=== PATIENT | male | born 1975 | race American Indian/Alaskan Native ===

== ENCOUNTER 2021-01-29 18:16 | Inpatient (IN) | payer OTHER ==
[~2021-01-29] VITALS: Ht 182.9 cm; Wt 63.3 kg
--- NOTE | 2021-01-29 22:30 | NUR ---
PT ARRIVED TO ROOM 127 AT 2158 VIA STRETCHER, PT ABLE TO MOVE HIMSELF OVER TO BED. HE IS ALERT/ORIENTED, REPORTS 5/10 HEADACHE PAIN, PRN TORADOL GIVEN. LUNGS CLEAR, RA. HR REGULAR, RATE 100-120. BOWEL TONES ACTIVE. IV SITES INTACT AND PATENT. 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 LEFT FOOT REDNESS OUTLINED, HAS AN ULCER TO LEFT LATERAL FOOT AND TO LEFT LATERAL ANKLE, BOTH OPEN TO AIR, WILL ORDER WOUND CARE CONSULT. MEDICATIONS GIVEN PER EMAR. PT HAS FRESH ICE WATER AND URINAL WITHIN REACH.
--- NOTE | 2021-01-29 23:30 | NUR ---
PHOTOS TAKEN OF LEFT LOWER LEG/FOOT WOUNDS. PT PROVIDED WITH SANDWICH BOX, ATE 100%. REPORTS HEADACHE PAIN IS SLIGHTLY IMPROVED SINCE PRN TORADOL.
--- NOTE | 2021-01-30 00:33 | NUR ---
PT APPEARS TO BE SLEEPING AT THIS TIME. NO APPARENT DISTRESS. RESPIRATIONS EVEN AND UNLABORED.
--- NOTE | 2021-01-30 02:01 | NUR ---
CALL LIGHT ANSWERED. PT STATED HE NEEDED ASSISTANCE TO BATHROOM, STATED HE THOUGHT HE MAY NEED TO HAVE BM. PT VOIDED 1000ML YELLOW URINE, NO BM. PT USED FWW TO AMBULATE TO BATHROOM, TOLERATED WELL. PT GIVEN PRN TRAMADOL FOR 5/10 HEADACHE PAIN. FRESH ICE WATER AND DIET SODA ALSO PROVIDED. PT BACK IN BED, DENIES FUTHER REQUESTS, CALL LIGHT WITHIN REACH.
--- NOTE | 2021-01-30 02:36 | NUR ---
CALL LIGHT ANSWERED, PT UP TO BATHROOM WITH FWW TO HAVE BM. BACK TO BED, DENIES FURTHER NEEDS.
--- NOTE | 2021-01-30 04:36 | NUR ---
ASSESSMENT COMPLETED. PT REPORTS HEADACHE PAIN REMAINS UNCHANGED AT 5/10, PRN TYLENOL GIVEN (ORAL TEMP 99.1). REMAINDER OF ASSESSMENT UNCHANGED. IV SITES INTACT, FLUIDS INFUSING WNL. CALL LIGHT WITHIN REACH.
--- NOTE | 2021-01-30 06:20 | NUR ---
IN TO START ANTIBIOTIC INFUSION PER EMAR. PT RESTING WITH EYES CLOSED, APPEARS TO BE SLEEPING. NO APPARENT DISTRESS, APPEARS COMFORTABLE. VITAL SIGNS STABLE.
--- NOTE | 2021-01-30 07:51 | NUR ---
PT BLOOD GLUCOSE THIS AM IS 475F. DR LANGFORD NOTIFIED THIS AM VIA TELEPHONE, NO NEW ORDERS AT THIS TIME. 11 UNITS PER SLIDING SCALE ADMINISTERED.
--- NOTE | 2021-01-30 08:00 | NUR ---
ASSESSMENT COMPLETED. PT RIGHT IV SITE PULLED. COMPLETE BED CHANGE NEEDED. PT LUNGS SOUNC CLEAR. SPO2 =99 ON ROOM AIR. PT HEART RATE INTHE 80S AT REST. SLIGHT DRAINAGE NOTED FROM SORE ON LEFT FOOT. PT STATES HE HAS NO FEELING IN LEFT FOOT. AREA RED AND WARM TO TOUCH. IV FLUIDS AND ABX INFUSING. CALL LIGHT WITHIN REACH. WILL CONTINUE TO MONITOR.
--- NOTE | 2021-01-30 08:22 | NUR ---
DR LANGFORD IN ROOM AT [facility] I[facility] TO SPEAK WITH MOTHER OSIEL AND PATIENT ABOUT PLAN OF CARE FOR NIGHT. ALL QUESTIONS ANSWERED.
--- NOTE | 2021-01-30 09:10 | NUR ---
SEOND IV STARTED IN PATIENTS RIGHT FOREARM. WELL TOLERATED BY PT. IV FLUIDS AND ABX NOW INFUSING.
--- NOTE | 2021-01-30 11:27 | NUR ---
PT IN ROOM ASLEEP. ASSESSMENT UNCHANGED AT THIS TIME. HEART RATE 100-106 AT REST.SPO2 = 98% ON ROOM AIR. IV FLUIDS INFUSING. CALL LILT WITHIN REACH. WILL CONTINUE TO MONITOR.
--- NOTE | 2021-01-30 12:48 | NUR ---
PT GIVEN PRN MEDICATION FOR A HEADACHE (SEE EMAR). EATING LUNCH AT THIS TIME. 10 UNITS OF HUMALOG GIVEN. CALL LIGHT WITHIN REACH. WILL CONTINUE TO MONITOR.
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
--- NOTE | 2021-01-30 13:12 | NUR ---
MED REC COMPLETE
--- NOTE | 2021-01-30 14:37 | NUR ---
IN ROOM FOR MEDICATION ADMINISTRATION. PT APPEARS DIAPHORETIC. IV IN RIGHT ARM HAS BEEN REMOVED. PT REMAINS ALERT, BUT STATES HE FEELS DISORIENTED. BLOOD GLUCOSE 63. GIVEN ORANGE JUICE AND PEANUT BUTTER. PLAN TO RECHECK BLOOD GLUCOSEIN 30 MIN. WILL CONTINUE TO CLOSELY MONITOR.
--- NOTE | 2021-01-30 15:30 | NUR ---
PT USED FWW TO AMBULATE TO BATHROOM. STAND BY ASSIST ONLY REQUIRED. PT STEADY ON FEET. HEART RATE AT 110 WITH AMBULATION. PT NOW BACK IN BED. CALL LIGHT WITHIN REACH. NO FURTHER NEEDS AT THIS TIME.
--- NOTE | 2021-01-30 17:03 | NUR ---
DR LANGFORD UPDATED ON PTS INCREASED HEART RATE AND BLOOD SUGARS. ORDER TO DC TID ARGENIS.
--- NOTE | 2021-01-30 18:09 | NUR ---
DR SEGURA INTO TO ASSESS AND TREAT WOUND. THIS RN AT BEDSIDE. LARGE AMOUNT OF PUSS INSIDE THE WOUND. TISSUE AROUND WOUND REMOVED AND WOUND DRESSING APPLIED BY DR SEGURA. WOUND CULTURE SENT TO LAB. PLAN FOR DR SEGURA TO FOLLOW UP TOMMORROW.
--- NOTE | 2021-01-30 20:25 | NUR ---
SHIFT REPORT RECEIVED FROM DANIEL DICKENS. PT UP TO BATHROOM WITH SBA/FWW, VOIDED AND HAD BM. NOW BACK IN BED. PT FEELS HOT TO THE TOUCH, ORAL TEMP 99.5, PT ALSO COMPLAINS OF 5/10 HEADACHE PAIN, PRN TORADOL GIVEN. LUNGS CLEAR, RA. HR REGULAR, RATE 100-110. BOWEL TONES ACTIVE, DENIES NAUSEA. LEFT FOOT HAS DRESSING IN PLACE, C/D/I. IV INTACT AND PATENT. CB, 9 UNITS SLIDING SCALE ADMINISTERED WITH 8 UNITS SEMGLEE. FRESH ICE WATER PROVIDED, PT DENIES FURTHER NEEDS. CALL LIGHT WITHIN REACH.
--- NOTE | 2021-01-30 22:11 | NUR ---
IN TO START ANTIBIOTIC INFUSION PER EMAR. ORAL TEMP HAS COME DOWN TO 98.2, PT APPEARS TO BE RESTING COMFORTABLY. NO COMPLAINTS OR REQUESTS AT THIS TIME. CALL LIGHT WITHIN REACH.
--- NOTE | 2021-01-31 00:21 | NUR ---
PT SLEEPING AT THIS TIME, NO APPARENT DISTRESS. RESPIRATIONS EVEN AND UNLABORED, VITAL SIGNS STABLE. IVF INFUSING WNL, IV APPEARS INTACT. WILL ALLOW FOR REST AND CONTINUE TO MONITOR.
--- NOTE | 2021-01-31 02:10 | NUR ---
PT CONTINUES TO SLEEP, NO APPARENT DISTRESS. RESPIRATIONS EVEN AND UNLABORED, VITAL SIGNS STABLE.
--- NOTE | 2021-01-31 02:50 | NUR ---
CALL LIGHT ANSWERED. PT REQUESTS SNACK, PROVIDED HIM WITH DIET SODA, BROTH, AND SUGAR FREE JELLO AND PUDDING. PT CONTINUES TO REPORT 5/10 HEADACHE PAIN, PRN ULTRAM GIVEN. NO FURTHER REQUESTS AT THIS TIME. CALL LIGHT WITHIN REACH.
--- NOTE | 2021-01-31 03:36 | NUR ---
CALL LIGHT ANSWERED. PT FINISHED WITH SNACKS AND NEEDS ASSISTANCE TO BATHROOM. SBA WITH FWW TO BATHROOM, PT HAD LARGE UNMEASURED VOID AND BM. ASSESSMENT COMPLETED AND UNCHANGED. DRESSING TO LEFT FOOT REMAINS C/D/I. IV INTACT AND PATENT. LINENS CHANGED, WARM BLANKETS PROVIDED. NO FURTHER NEEDS AT THIS TIME, CALL LIGHT WITHIN REACH.
--- NOTE | 2021-01-31 05:25 | NUR ---
IV PUMP ALARMING, NEW BAG OF IVF STARTED. ANTIBIOTIC INFUSION STARTED WELL. PT RESTING WITH EYES CLOSED, NO APPARENT DISTRESS. RESPIRATIONS EVEN AND UNLABORED. VITAL SIGNS STABLE.
--- NOTE | 2021-01-31 09:28 | NUR ---
PT ATE 100% OF BREAKFAST. STATES " MY BODY FEELS BETTER BUT MY HEADACHE IS STILL THERE" VANCOMYCIN NOW INFUSING. PLAN TO GIVE PT A SHOWER WHEN ABX ARE COMPLETED. CALL LIGHT WITHIN REACH. WILL CONTINUE TO MONITOR.
--- NOTE | 2021-01-31 10:39 | NUR ---
REPORT GIVEN TO MEDICAL/ CHEMICAL MAKER. PT TRANSPORTED VIA HOSPITAL BED ON TELEMETRY. ALL BELONGINGS TRANSPORTED WITH PT.
--- NOTE | 2021-01-31 10:40 | NUR ---
pt transfered from from CCU, on room air, NS @75, R BKA, L foot wound, VSS, diabetic diet , denies any pain at the momen.
--- NOTE | 2021-01-31 12:00 | NUR ---
pt mother here to visit pt communicated with nurse that she would like resources to help pt and his situation states she had been helping him out but can no longer help him as his behavior towards her is not good.i told his mom i would communicate this to the vocational case manager unfortunatly she is not here on the weekends, verified her number on chart states that number is not correct as her son sold her phone updated number is [phone]. number will be chnaged in the system.
--- NOTE | 2021-01-31 12:00 | NUR ---
rn in room to administer insulin with lunch, pt sitting up eating. 5units of humalog given for 236, denies any other needs at the moment.
--- NOTE | 2021-01-31 14:27 | NUR ---
RN in room to administer iv abx, pt finished lunch and is requesting a snack, sugar free jello given.
--- NOTE | 2021-01-31 15:30 | NUR ---
rn in room to administer iv vanco, verified with pharmacist cefepime and vanco are compatable, pt assisted up to bathroom, instructed to pull cord once done.
--- NOTE | 2021-01-31 17:20 | NUR ---
rn in room to administer 1700 medications 1unit of humalog given for a blood glucose of 171, pt ate 100% of dinner, urinal emptied, laying in bed wacthing tv denies any other needs at the moment.
--- NOTE | 2021-01-31 19:20 | NUR ---
REPORT RECEIVED FROM DAY SHIFT RN. PT LYING IN BED ALERT AND ORIENTED. DENIES NEEDS. WHITE BOARD UPDATED. CALL LIGHT IN REACH.
--- NOTE | 2021-01-31 21:07 | NUR ---
EVENING ASSESSMENT COMPLETE. SCHEDULED MEDS ADMINISTERED PER EMAR. PRN ADMINISTERED FOR REPORTED 5/10 HEADACHE PAIN. IVF INFUSING WNL. ELEVATED TEMP 99.3 NOTED. DRESSING TO LEFT FOOT INTACT WITH SCANT AMOUNT OLD DRAINAGE. PT DENIES QUESTIONS OR CONCERNS. CALL LIGHT IN REACH.
--- NOTE | 2021-01-31 22:38 | NUR ---
CALL LIGHT ANSWERED. PT UP TO BR WITH SBA AND FWW TO VOID AND HAVE BM. GAIT STEADY. BACK TO BED, LONG WELL. SNACK PROVIDED PER REQUEST. NO FURTHER NEEDS. CALL LIGHT IN REACH.
--- NOTE | 2021-01-31 23:59 | NUR ---
CALL LIGHT ANSWERED. SBA TO BR WITH FWW TO VOID AND HAVE BM. AT SINK FOR ORAL CARE. BACK TO BED, LONG WELL. NO FURTHER NEEDS AT THIS TIME.
--- NOTE | 2021-02-01 01:43 | NUR ---
CALL LIGHT ANSWERED. IV PUMP ALARMING. RESOLVED. SBA WITH FWW TO VOID AND HAVE LOOSE BM. GAIT STEADY. BACK TO BED, LONG WELL.
--- NOTE | 2021-02-01 03:35 | NUR ---
PT RESTING ON RIGHT SIDE WITH EYES CLOSED. RESPIRATOINS EVEN. CALL LIGHT IN REACH.
--- NOTE | 2021-02-01 06:34 | NUR ---
IV ABX INFUSING. VS AND I&O COMPLETE. PT AFEBRILE. DENIES NEEDS AT THIS TIME. CALL LIGHT IN REACH.
--- NOTE | 2021-02-01 07:05 | NUR ---
Report from Sheela Mane RN. Patient resting in bed with eyes closed. Respirations even and unlabored. Call light in reach, bed rails up X2.
--- NOTE | 2021-02-01 08:43 | NUR ---
Wakes to voice after multiple prompts. States he is very tired this AM, but sits up eat breakfast. Takes medications without difficulty. Denies pain at this time. Dressing to left foot remains clean, dry and intact. Call light in reach, bed rails upX2.
--- NOTE | 2021-02-01 09:40 | NUR ---
Dr. Novoa in to change dressing.
--- NOTE | 2021-02-01 10:45 | NUR ---
Sitting up in recliner. IV fluids restarted after shower. Denies other needs at this time. call light in reach.
--- NOTE | 2021-02-01 14:52 | NUR ---
ASSESSMENT COMPLETED. REQUESTS NICOTINE LOZENGE. GIVEN PRESCRIBED. DENIES OTHER NEEDS AT THIS TIME.
--- NOTE | 2021-02-01 15:41 | NUR ---
VANCOMYCIN INITIATED PRESCRIBED. CRACKERS AND DIET 7UP PROVIDED FOR NAUSEA. STATES LOZENGE REMINDED HIM OF CHEWING TOBACCO AND MADE HIM FEEL SICK. DENIES OTHER NEEDS AT THIS TIME.
--- NOTE | 2021-02-01 17:22 | NUR ---
Sitting up in bed. Eating supper. Scheduled medications given as prescribed.
--- NOTE | 2021-02-01 19:05 | NUR ---
BEDSIDE REPORT RECEIVED FROM OFFGOING RNOLIVER.
--- NOTE | 2021-02-01 20:27 | NUR ---
PT ASSESSMENT COMPLETE. PT DENIES PAIN, NAUSEA, OR SOB. PT WITH FLAT AFFECT. STATES THAT HE IS TIRED BUT RESTLESS AND WHEN HE WANTS TO FALL ASLEEP HE CANNOT BUT WHEN HE WANTS TO STAY AWAKE HE FALLS ASLEEP. PT FIDGETING DURING ASSESSMENT. PT REPORTS NUMBNESS AND TINGLING TO EXTREMITIES AT BASELINE. DRESSING TO LLE C/D/I WITH SOCK COVERIGN. PEDAL PULSE PALPABLE. PT ASSISTED TO BATHROOM AND BACK TO BED WITH 1 PA AND FWW. PT TOLERATED WELL. IV FLUSHED, PATENT, WNL. SCHEDULED MEDS ADMINISTERED. NEW GOWN, EXTRA BLANKETS, JELLO, AND ICE WATER PROVIDED. VS OBTAINED, WNL. PT DENIES FURTHER NEEDS AT THIS TIME. CALL LIGHT IN REACH.
--- NOTE | 2021-02-01 20:57 | NUR ---
PT REQUESTED SOMETHING TO EAT. PT PROVIDED A SANDWICH BOX.
--- NOTE | 2021-02-02 01:03 | NUR ---
MRI SUPERVISOR TO ROOM FOR IV PUMP ALARMING. PT RESTING IN BED WITH EYES CLOSED. RESPIRATIONS EVEN AND UNLABORED. PT APPEARS TO BE SLEEPING. DOES NOT WAKE WHILE MRI SUPERVISOR AT BEDSIDE. CALLLIGHT IN REACH.
--- NOTE | 2021-02-02 03:04 | NUR ---
PT UTLIZES CALL LIGHT, REQUESTS TO USE THE BATHROOM. PT UP TO BATHROOM AND BACK TO BED WITH 1 PA WITH FWW. PT ASSESSMENT COMPLETE. HE STATES THAT HE SLEPT WELL FOR A PERIOD, REMAINS TIRED. PT DENIES PAIN, NAUSEA, OR SOB. DRESSING TO LLE REMAINS C/D/I. IV FLUSHED WITH 10 ML NS. WNL. PATENT. SCHEDULED MEDS INIATED. PT BED LINENS AND GOWN CHANGED DUE TO BEING DAMP. PT DENIES FURTHER NEEDS AT THIS TIME. CALL LIGHT IN REACH.
--- NOTE | 2021-02-02 03:29 | NUR ---
PT UTLIZES CALL LIGHT, STATES THAT IV IS LEAKING. UPON ASSESSMENT IV FOUND TO BE LEAKING WHEN FLUSHED. NEW IV PLACED TO LUE. PT WINCES WITH IV INSERTION, DOES NOT REALIZED THAT INSERTION IS COMPLETE. EDUCATION PROVIDED. SCHEDULED IV MEDCIATIONS RESTARTED. PT DENIES FURTHER NEEDS AT THIS TIME. CALL LIGHT IN REACH.
--- NOTE | 2021-02-02 07:23 | NUR ---
PT RESTING EYES CLOSED AT TIME OF SHIFT EXCHANGE. LEFT UNDISTURBED. CALL LIGHT AND NEEDED ITEMS IN REACH.
--- NOTE | 2021-02-02 09:00 | NUR ---
PATIENT UP TO BATHROOM WITH SBA AND FWW.
--- NOTE | 2021-02-02 09:40 | NUR ---
PT HAS CONTINUED TO DOZE ALL MORNING. AWAKE NOW EATING MORNING MEAL DENIES DISCOMFORTS OR NEEDS OF. DR SEGURA IN AT START OF SHIFT FOR DRESSING CHANGE. WELL TOLERATED BY PT.
--- NOTE | 2021-02-02 10:38 | NUR ---
Patient is in bed with call light in reach.
--- NOTE | 2021-02-02 13:14 | NUR ---
IV FLUSHED, INFUSING 4 HOUR ABX, URINAL EMPTIED, PATIENT ATE 100% OF LUNCH.
--- NOTE | 2021-02-02 14:19 | NUR ---
Patient is in bed with call light in reach. Patient said thier left upper arm looks a little swollen from the insulin they got earlier. RN will be notified.
--- NOTE | 2021-02-02 14:54 | NUR ---
DR CARVALHO IN TO SEE PT ALL QUESTIONS ANSWERED. PT RESTING IN BED DENIES PAIN OR OTHER DISCOMFORTS.
--- NOTE | 2021-02-02 18:00 | NUR ---
PT BACK FROM SHOWER EATS 100% OF EVENING MEAL. SITTING IN BED WATCHING TV. USES CALL LIGHT APPROPRIATELY, DENIES NEEDS OF
--- NOTE | 2021-02-02 18:21 | NUR ---
Patient via to chair from bed with FWW SBA. Call light is in reach. Patient pulse was 111.
--- NOTE | 2021-02-02 19:15 | NUR ---
REPORT RECEIVED FROM OFFGOING RNFLORENCE.
--- NOTE | 2021-02-02 19:25 | NUR ---
ANSWERED CALL LIGHT. PATIENT SPILLED WATER FROM BRUSHING TEETH ALL OVER THE FLOOR. WIPED WITH STERN WIPES AND DRIED. SBA PATIENT FROM CHAIR TO BATHROOM TO BED USING WALKER. PICKED UP USED LINEN AND TRASH. DIET SODA AND SUGAR FREE PUDDING AND ICE WATER PROVIDED.
--- NOTE | 2021-02-02 20:25 | NUR ---
PT ASSESSMENT COMPLETE. PT SITTING UP IN BED WATCHING TV. DRESSING TO LLE C/D/I. PT AGREES TO DO BID DRESSING CHANGE AROUND 2200. IV FLUSHED WITH 10 ML NS, PATENT, WNL. SCHEDULED MEDS ADMINISTERED. ICE WATER REFILLED. PT DENIES FURTHER NEEDS AT THIS TIME. CALL LIGHT IN REACH.
--- NOTE | 2021-02-02 22:30 | NUR ---
PT UP TO BATHROOM AND BACK TO BED WITH SBA AND FWW. PT REPORTS HAVING LOOSE STOOL. STATES THAT HE WOULD LIKE A SANDWHICH BOX TO TRY TO HELP WITH DIARRHEA. ELECTRICAL AND RADIO MOCK UP MECHANIC TO BRING SANDWHICH BOX. PT ENCOURAGED TO SAVE STOOL SO RN CAN VISUALIZE. PT STATES THAT HE DOES NOT LIKE TO SEE OR SMELL HIS BM AND FLUSHES AFTER EACH TIME STOOL IS EXPRESSED. EDUCATION PROVIDED.
--- NOTE | 2021-02-02 23:31 | NUR ---
DRESSING CHANGE PERFORMED PER MD ORDER. PT TOLERATED WELL. SANDWHICH BOX PROVIDED PER PT REQUEST. PT DENIES FURTHER NEEDS, CALL LIGHT IN REACH.
--- NOTE | 2021-02-03 01:19 | NUR ---
answered bathroom call light. sba. patient is back in bed. warm blanket provided. ice water refilled. patient c/o head ache but stated he will observe and try to sleep it may go away. told to call when need anything. patient said yes.
--- NOTE | 2021-02-03 01:59 | NUR ---
PT ASSESSMENT COMPLETE. PT RESTINGIN BED. STATES THAT PRN ZOFRAN ADMINISTRATION EARLIER HELPED HIS STOMACH FEEL BETTER. NO FURTHER COMPLAINTS. DRESSING TO LLE C/D/I. IV FLUSHED, WNL, PATENT. IV MEDICATION INFUSING ORDERED. PT DENIES FURTHER NEEDS AT THIS TIME. CALL LIGHT IN REACH.
--- NOTE | 2021-02-03 05:08 | NUR ---
PT UTLIZES CALL LIGHT, REQUESTS TO USE THE BATHROOM. PT FOUND WITH LIQUID STOOL IN BED. BED LINENS CHANGED. PT PROVIDED WITH NEW GOWN AND SCRUB BOTTOMS. PT DENIES HELP IN THE BATHROOM TO CLEAN HIMSELF. WARM WIPES PROVIDED. PT WILL USE CALL LIGHT WHEN FINISHED IN BATHROOM.
--- NOTE | 2021-02-03 06:00 | NUR ---
NOTIFIED REGARDING LOOSE STOOL. NO NEW ORDERS RECEIVED.
--- NOTE | 2021-02-03 06:45 | NUR ---
DR. SEGURA IN TO SEE PT, DRESSING CHANGE PERFORMED. PT TOLERATED WELL. WOKE MINIMALLY DURING PROCEDURE.
--- NOTE | 2021-02-03 07:22 | NUR ---
PT RESTING EYES CLOSED AT TIME OF SHIFT EXCHANGE, LEFT UNDISTURBED
--- NOTE | 2021-02-03 07:55 | NUR ---
PT WAS ASLEEP IN BED. WHITEBOARD WAS UPDATED. CALL LIGHT IS WITHIN REACH. WILL CHECK BEACK IN LATER.
--- NOTE | 2021-02-03 09:36 | NUR ---
PT TO MRI AND BACK EATS 100% OF MORNING MEAL. USING CALL LIGHT APPROPRIATELY UP TO TOILET THEN TO CHAIR MOM IS PRESENT IN THE ROOM
[2021-02-03] MEDS ORDERED: LOPERAMIDE2 MG PO (10:55)
[2021-02-03] MEDS ORDERED: ZESTRIL10 MG PO (10:55)
[2021-02-03] MEDS ORDERED: NOVOLOG FL100 UNIT/1 SUB-Q (10:56)
[2021-02-03] MEDS ORDERED: LEVEMIR FL100 UNIT/2 SUB-Q (10:56)
[2021-02-03] MEDS ORDERED: ARTIFICIAL TEAR15 M6 OU (10:57)
--- NOTE | 2021-02-03 11:00 | NUR ---
PT CONTINUES TO HAVE LOOSE STOOL, REPORTS THIS IS A CHRONIC PROBLEM AND HE NORMALLY TAKES IMMODIUM AD
--- NOTE | 2021-02-03 11:57 | NUR ---
PT HAS BEEN UP IN THE CHAIR ALL MORNING MOVES TO THE BED NOW. MOTHER IS STILL PRESENT.
--- NOTE | 2021-02-03 12:15 | NUR ---
RECEIVED A CALL FROM DEACON ARTHUR FROM [facility]-HE HAS BEEN IN CONTACT WITH FAMILY AND THEY WOULD LIKE [facility] TO VISIT TODAY. INFORMED [facility].
--- NOTE | 2021-02-03 14:19 | NUR ---
PT SITTING UP IN BED BRUSHING HIS TEETH. O/R SCHEDULED FOR TOMORROW PT DENIES QUESTIONS.
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
--- NOTE | 2021-02-03 16:21 | NUR ---
Call from Patti and she states they will not be able to send anyone ham and would like to come in the morning. I explained I am concerned as the last 3 times, no one has ever showed up the following day. Asked if they will make sure, some shows tomorrow. She spoke with her Dish Room Worker and someone will visit [facility].
--- NOTE | 2021-02-03 17:07 | NUR ---
DR CARVALHO IN TO SEE PT AND DISCUSS PLAN GOING FORWARD. ALL QUESTIONS ANSWERED. PT UP IN BED EATING EVENING MEAL DENIES NEEDS OF. CALL LIGHT AND NEEDED ITEMS IN REACH.
--- NOTE | 2021-02-03 17:20 | NUR ---
Recieved call from Odilia at [facility] in [place]. She states she will see pt ham. She asks I call her in the future if I call the Crisis line and [facility] do not visit.
--- NOTE | 2021-02-03 19:13 | NUR ---
BEDSIDE REPORT FROM FLORENCE Suarez RN, PT SITTING UP IN BED TALKING WITH DRUG AND ETOH COUNSLOR AT BEDSIDE.
--- NOTE | 2021-02-03 20:23 | NUR ---
PT SITTING UP IN BED, HE REQUEST PAPER AND PEN TO WRITE DOWN PHONE NUMBERS AND FOR DRAWING, MED [facility] [facility] ANS ASSESSMENT COMPLETE, HE REPORTS NO PAIN OR NAUSEA, HE REQUESTED AT LUNCH BOX HE IS NPO AT MIDNIGHT FOR PROCEDURE TOMORROW. WILL PROVIDE
--- NOTE | 2021-02-03 22:05 | NUR ---
DRESSING CHANGE PER ORDERS, NOTED TO HAVE SMALL AMOUNT OF PURULENT DRAINAGE NOTED ON PALPATING AREA AROUND PUNCTURE OPENING, FLUSHED WITH NS, THEN IODINE SOLUTION DILUTED WITH NS, REDRESSED PER ORDERS. PT TOLERATED WELL, HE REPORTED NO PAIN DURING OR AFTER DRESSING CHANGE.
--- NOTE | 2021-02-04 00:07 | NUR ---
PT CALLED NURSES STATION TO REQUEST ASSISTANCE TO THE BATHROOM, HE AMBULATED TO BATHROOM STANDBY HELPED WITH IV POLE. HE TOLERATED ACTIVITY WELL, HE VOIDED 650ML AND HAD BM, HE FLUSHED BEFORE STAFF COULD SEE STOOL, HE REPORTS IT IS NOT DIARRHEA. PT BACK TO BED, CALL LIGHT IN REACH.
--- NOTE | 2021-02-04 01:36 | NUR ---
PT UP TO BATHROOM TO VOID AND HAVE BM, HE HAD INCONT OF LIQUID BM IN BED, FULL BED CHANGE WHILE PT UP IN BATHROOM, NEW GOWN AND PJ BOTTOMS PROVIDED, PT STANDBY ASSIST WITH FWW, TO MANAGE IV POLE. PT TOLERATED ACTIVITY WELL. PT REQUEST ICE WATER, PT REMINDED THAT HE IS NOW NPO FOR PROCEDURE TOMORROW, HE SAID "OH YEAH, THATS RIGHT" NO OTHER CONCERNS OR REQUESTS, CALL LIGHT IN REACH.
--- NOTE | 2021-02-04 03:54 | NUR ---
PT HAS SLEPT INTERMITTENLY OVER SHIFT, HE HAS BEEN UP THREE TIMES TO BATHROOM TO HAVE BM, HE HAS BEEN NPO SINCE MIDNIGHT, HE IS VOIDING QUANTITY SUFFICIENT, HE HAS NOT REPORTED ANY PAIN OR NAUSA OVER SHIFT, DRESSING CHANGED AT 2130 ON ANESTHETIST. HE TOLERATED WELL, SEE RN NOTE. HE HAS BEEN ORIENTED, CALLING APPROPRIATLY.
--- NOTE | 2021-02-04 06:14 | NUR ---
PT UP TO BATHROOM, ONE PERSON STANDBY ASSIST. V/S COMPLETE, WIPE DOWN FOR SURGERY COMPLETE. PT BACK TO BED, NO CONCERNS OR REQUESTS AT THIS TIME. CALL LIGHT IN REACH.
--- NOTE | 2021-02-04 07:15 | NUR ---
REPORT RECIEVED FROM SENIOR HARDWARE ENGINEER RN, PLAN FOR OR TODAY, NPO SINCE 0000, ROOM AIR, NO NEEDS AT THE MOMENT.
--- NOTE | 2021-02-04 07:39 | NUR ---
PT WAS ASLEEP IN BED. CALL LIGHT IS WITHIN REACH. WHITEBOARD IS UPDATED. WILL CHECK BACK IN LATER.
--- NOTE | 2021-02-04 08:13 | NUR ---
MARU FROM SURGERY HERE FOR PT, REPORT GIVEN PT BLOOD SUGAR 265 4 UNITS OF HUMALOG GIVEN, IV ABX DUE AT 0800 GIVEN TO MARU
--- NOTE | 2021-02-04 10:14 | NUR ---
02/04/21 [id number] YUDELKA FALK 0956-PATIENT ARRIVES TO PACU ON 10L VIA MASK. PATIENT IS NONAROUSABLE AND HAS ORAL AIRWAY IN PLACE. RESP EVEN AND UNLABORED. 0958-OXYGEN DECREASED TO 6L VIA MASK. 0959-BLOOD GLUCOSE WAS 199 1001-PATIENT REACTIVE TO VERBAL STIMULI AND ORAL AIRWAY IS REMOVED. RESP RATE EVEN AND UNLABORED. 1003-X-RAY AT BEDSIDE.
--- NOTE | 2021-02-04 10:55 | NUR ---
PT BACK FROM SURGEY AWAKE AND ALERT ROOM AIR, DENIES PAIN AT THE MOMENT, WATER AND SALTINE CRACKERS GIVEN, WILL ADVANCE DIET TOLEREATED. LEFT LEG IS NON WEIGHT BEARING PER ORDERS, KEEP ELEVATED, MOM IS AT BEDSIDE
--- NOTE | 2021-02-04 11:55 | NUR ---
rn in room to round on pt, dressing remains intact no drainage noted, denies pain, brisk cap refil waiting on lunch tray no other needs at the moment
--- NOTE | 2021-02-04 13:00 | NUR ---
RN IN ROOM TO DO POST OP VS AND ROUND ON PT, DRESSING INTACT DENIES PAIN, LUNCH TRAY REMOVED
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
--- NOTE | 2021-02-04 14:06 | NUR ---
RN IN ROOM TO HANG IV ABX, COMPLAINING OF PAIN AT THE ANKLE PRN TYLENOL PROVIDED.
--- NOTE | 2021-02-04 14:06 | NUR ---
CM LAURIE IN WITH PT, WILL CHECK BACK
--- NOTE | 2021-02-04 15:00 | NUR ---
PT PAIN IS BETTER LEG IS ELEVATED ON PILLOWS, ABLE TO VOID 500ML OF URINE
--- NOTE | 2021-02-04 15:11 | NUR ---
Spoke with Dr. Gutierrez and he will contact Dr. Novoa to determine when pt can discharge.
--- NOTE | 2021-02-04 17:23 | NUR ---
Scheduled appt with Dr. Chambers at [facility] 02/18/21 4:15 for pt to establish care.
--- NOTE | 2021-02-04 19:21 | NUR ---
YINKA CALLED ASKING FOR AN ESTIMATE FOR DC PLANNING, NOT ABLE TO GIVE A DATE. PROVIDED WITH DIRECT NUMBER, MARLYN PALOMINO MENTOR [phone]
--- NOTE | 2021-02-04 19:36 | NUR ---
SHIFT REPORT RECEIVED FROM ZAKIA SANCHEZ. PT REASTING IN BED. NO NEEDS AT THIS TIME. CALL LIGHT IN REACH.
--- NOTE | 2021-02-04 20:30 | NUR ---
SCHEDULED MEDS PROVIDED. ASSESSMENT, VS AND I&O COMPLETED. GCS 15, A&O X4. SCATTERED SCABS ABD BRUISING NOTED. IV WNL, CDI, FLUSHED WELL. LLE DRESSING CHANGED, SURGERY SITE WNL. LUNGS CLEAR, HEART TONES REGULAR. PT DENIES NUMBNESS AND TINGLING IN EXTREMITIES. ABD SOFT, NONTENDER, BOWEL TONES ACTIVE. ICE WATER PROVIDED. NO OTHER NEEDS. CALL LIGHT IN REACH.
--- NOTE | 2021-02-05 00:12 | NUR ---
PT RESTING IN BED. NO NEEDS AT THIS TIME. CALL LIGHT IN REACH.
--- NOTE | 2021-02-05 02:15 | NUR ---
SCHEDULED MEDS PROVIDED. ASSESSMENT COMPLETED. IV WNL. LLE DRESSING CDI. ICE WATER PROVIDED. PT DENIES PAIN. NO OTHER NEEDS. CALL LIGHT IN REACH.
--- NOTE | 2021-02-05 02:40 | NUR ---
ASSISTED PT BACK TO BED FROM BSC, MIX OF LIQUID STOOL AND URINE. REQUESTED SNACK.
--- NOTE | 2021-02-05 05:36 | NUR ---
VS AND I&O COMPLETED. PT RESTING IN BED. NO NEEDS AT THIS TIME. CALL LIGHT IN REACH.
--- NOTE | 2021-02-05 07:19 | NUR ---
Report recieved from warehouse worker 2nd shift RN, pt sleeping in bed, RR even and non labored, call light within reach no needs at the moment.
--- NOTE | 2021-02-05 08:30 | NUR ---
Received call from Britni at [facility]. Pt's mom, Chichi, is at [facility] requesting nurses to see pt in the home for dressing changes and for specialized equipment. UPdated Britni, I do not have these answers yet. I was notified by Dr. Novoa last night, pt will stay 1-2 days for IV antibiotics and then transition to PO. She states is closing at 12:00 today and they will not be able provide any assistance after 12. She states mom is back and forth if pt can return to home with her. They do not want pt to be discharged homeless. Let her know YINKA is also working with this pt, but he needs OHP and so far he will not stop his [place] medicaid. WE will be unable to assist him in [place] if he remains on [place] Medicaid.
--- NOTE | 2021-02-05 08:39 | NUR ---
rn in room to do morning assessment and medication blood glucose 148, 4 units of humalog given per order, 16 of long acting, pt denies pain, helped set up breakfast no needs at the moment
--- NOTE | 2021-02-05 10:00 | NUR ---
Received call from pts mom. She is again stating she really does not want this pt to return to her home. She will take him, if he does not have any place to go. She states she cannot physically help him. She is pleading for him to be able to stay through the weekend until he can get assistance from [facility]. [facility] would provide him a room, I explained my concern he would have a motel room, but not bear weight on his L ft, he would not have food. He would not have someone to assist with his dressing changes. Let her know I need to speak with Dr. Novoa and Dr. Gutierrez before a safe plan for dc can be made. Updated Dr. Gutierrez and asked if he feels pt would qualify for a SNF for wound care and PT. He will write orders for PT to [facility].
--- NOTE | 2021-02-05 10:06 | NUR ---
Patient call light is in reach. Vitals are complete.
--- NOTE | 2021-02-05 10:44 | NUR ---
rn in room to round on pt, pt requesting coffee provided with a fresh cup, denies any needs at the moment.
--- NOTE | 2021-02-05 11:00 | NUR ---
Spoke with pt, he is feeling ok. States he is muddled and he needs someone to help with a direction of where to go. He spoke with his Provider 1 ([place] Medicaid). He asked them to continue his care. He would like to return to [place] for his care. He is homeless them, but thinks he maybe able to stay with his twin brother. He is not vaccinated for covid. He states he has PTSD, and Depression. He also believes he has other psych diagnosis as he was evaluated in [place]. He does not know what these diagnosises are. He does states he has issues with anxiety and germ phobia. He is willing to go to a SNF for rehab and wound care if he qualifies.
--- NOTE | 2021-02-05 12:28 | NUR ---
rn in room to administer lunch time insulin, 246 blood glucose, 7 units of humalog given. denies any pain new water provided
--- NOTE | 2021-02-05 13:30 | NUR ---
Called SNFS in [place]: [facility], [facility], [facility] and all declined due to his insurance. Spoke with [facility] and they would accept, but are closed due to Covid until Feb 25 or . [facility] with [facility] and they do not currently have any medicaid beds. Spoke with [facility]. Brenda states they have beds and would accept insurance. She requests a chart. Informed I will fax when pt is evaluated by PT. Brenda admission [phone] .
--- NOTE | 2021-02-05 14:41 | NUR ---
BP was 133/89. Map was 99. 113 Pulse. Patient is in bed with call light.
--- NOTE | 2021-02-05 14:48 | NUR ---
rn in room to hang iv abx, and do assessment, no needs at the moment
--- NOTE | 2021-02-05 16:04 | NUR ---
Spoke with Izzy from PT. She evaluated pt and feels he will need SNF for safety.
--- NOTE | 2021-02-05 17:32 | NUR ---
rn in room to do dinner time insulin, pt talking on the phone and eating dinner, blood glucose 162 total 3 units given denies any other needs the moment.
--- NOTE | 2021-02-05 18:57 | NUR ---
PT NEEDS A NEW COVID TEST DUE TO BEING HERE FOR 7 DAYS PER POLICY PT AGREEABLE TO GETTING TEST, RT CALLED AND WILL COME DOWN TO GET TEST
--- NOTE | 2021-02-05 19:15 | NUR ---
PT SITTING UP IN BED WATCHING MOVIE ON HIS TABLET, NO DISTRESS OR REQUESTS AT THIS TIME. BEDSIDE REPORT FROM ZAKIA LEE RN.
--- NOTE | 2021-02-05 19:45 | NUR ---
1900 4-plex swab obtained and taken to lab.
--- NOTE | 2021-02-05 20:10 | NUR ---
PT SITTING UP IN BED HE REPORTS HE NEEDS TO USE THE COMMODE BEFORE THIS RN LEAVES THE ROOM. MEDICATIONS PASSED WITH EDUCATION ON ABX, PT REPORTS NO PAIN OR NAUSEA, DRESSING TO LEFT FOOT CLEAN AND DRY AT THIS TIME. BSC PLACED AT BEDSIDE FOR PT TO SLIDE ON TO.
--- NOTE | 2021-02-05 21:15 | NUR ---
IN TO GET VITALS, PT PROVIDED WITH WET WIPES AT BEDSIDE/BSC, NO FURTHER NEEDS
--- NOTE | 2021-02-05 21:45 | NUR ---
PT BACK TO BED, COMPLETED HS MED PASS AND ASSESSMENT. HE HAS NO FURHTER CONCERNS OR NEEDS AT THIS TIME, CALL LIGHT IN REACH.
--- NOTE | 2021-02-06 00:24 | NUR ---
PT RESTING QUIETLY ON LEFT SIDE, EYES CLOSED RR EVEN 18 BPM, NO DISTRESS NOTED
--- NOTE | 2021-02-06 02:31 | NUR ---
PT RESTING QUIETLY IN BED, EYES CLOSED RR EVEN, NO DISTRESS NOTED, ALERT OT NAME TO ADMINISTER ABX PER ORDER.
--- NOTE | 2021-02-06 05:53 | NUR ---
awaken easily, uses BSC, having loose stool, voiding QS, on room air, tolerating liquids well. BP 95/54, primary RN Kathleen notified
--- NOTE | 2021-02-06 06:10 | NUR ---
PT HAS SLEPT WELL OVER SHIFT, HE WAS ADMINISTERED MELATONIN PRN AT HS, PT SAID HE HAS A HARD TIME SLEEPING. PT HAS NOT REPORTED ANY PAIN OR NAUSEA OVER SHIFT, HE HAS BEEN TRANSFERING HIMSELF FROM BED TO COMMODE BY SLIDING ACROSS, HE IS NON WEIGHT BEARING ON LEFT POST OP FOOT, AND HAS RBKA. HE HAS BEEN COOPERATIVE WITH CARE. HE HAS HAD THREE LOOSE STOOLS OVER SHIFT. DRESSING TO LEFT FOOT IS DRY AND INTACT.
--- NOTE | 2021-02-06 07:10 | NUR ---
BEDSIDE REPORT RECIEVED FROM EYEWEAR MANUFACTURING SUPERVISOR PT AWAKE WACTHING TV, CALL LIGHT WITHIN REACH DENIES ANY NEEDS AT THE MOMENT.
--- NOTE | 2021-02-06 08:06 | NUR ---
DR IN ROOM TO DO DRESSING CHANGE ON L FOOT, PT TOLERATED WELL.
--- NOTE | 2021-02-06 08:30 | NUR ---
RN IN ROOM TO ADMINISTER MORNING MEDICATIONS AND DO ASSESSMENT, PT DENIES PAIN AT THE MOMENT NO OTHER NEEDS
--- NOTE | 2021-02-06 09:02 | OR ---
[facility] [address] [place], [place] [address] Signed DATE OF OPERATION: 02/04/2021 SURGEON: Lane Segura DPM SURGICAL AIDE SURGEON: Suzan Eckert DPM PREOPERATIVE DIAGNOSES: 1. Diabetic ulcer, left foot. 2. Cellulitis/abscess, left foot. 3. Osteomyelitis, left fifth metatarsal. POSTOPERATIVE DIAGNOSES: 1. Diabetic ulcer, left foot. 2. Cellulitis/abscess, left foot. 3. Osteomyelitis, left fifth metatarsal. ANESTHESIA: IV general with local block, left foot. ANALYST GEOCHEMICAL PROSPECTING: Ricardo Leahy CRNA SPECIMEN TO PATHOLOGY: A bone specimen from the left fifth metatarsal base, also aerobic/anaerobic culture, left foot. DESCRIPTION OF PROCEDURE: The patient was brought to the operating room and placed on the table in the supine position. Anesthesia Department administered IV sedation, after which a local block was given to the left foot using a total of 10 mL of 1:1 mixture, 2% lidocaine plain and 0.5% ropivacaine plain. Attention was initially directed to the ulcer site directly over the lateral aspect of the fifth metatarsal base. The ulcer was 1.5-2 cm in diameter and deep to the fascia or tendon overlying the bone of the fifth metatarsal base. Necrotic tissue was evident within the ulcer site and an incision was made from the ulcer extending proximal and distal in a linear fashion along the lateral aspect of the foot. The incision was full thickness through the skin and subcutaneous tissue exposing purulent drainage and necrotic tissue to this area. Necrotic tissue and purulent drainage extended from the Electronically Signed By: LANE SEGURA DPM 02/06/21 0902 PATIENT NAME: MARCELLA FERGUSON OPERATIVE REPORT DATE OF : 75 REPORT #: [id number] PHYSICIAN: LANE SEGURA DPM PCP: NO PRIMARY CARE PHYSICIAN REPORT IS CONFIDENTIAL AND NOT TO BE RELEASED WITHOUT AUTHORIZATION [facility] [address] [place], [place] [address] Signed ulcer area under the foot plantarly, the majority of the distance toward the medial side of the foot, and distally along the fifth metatarsal extending slightly in a dorsal direction as well. The incision was extended distally near the fifth metatarsal head, but ending proximal to the fifth metatarsal head and then necrotic soft tissue debrided from this area as well as the lateral aspect of fifth metatarsal and plantar mid foot area. Once the debridement was performed, this site was irrigated with copious amounts of normal saline, then inspected again for any necrotic tissue or purulence and none was found. At this time, attention directed to the fifth metatarsal base. The fascia and tendon insertion to this area showed a small amount of necrosis. The lateral aspect of the fifth metatarsal base had shown changes on MRI, therefore a small window was made into the bone at this area and the bone removed was sent for pathology. The bone to this area appeared to be solid and the small window cut out was approximately 1 cm x 0.2-0.3 cm and a hole made into the base of fifth metatarsal at this site. At this time, the antibiotic beads were placed throughout the wound site distally, plantarly and laterally over the fifth metatarsal area and some of the small antibiotic beads were then packed into the hole in the fifth metatarsal base to provide antibiotics at this site as well. The surgical site was then closed using 3-0 nylon monofilament, this was able to close the majority of the incision, the ulcer area itself had enough tissue loss that this was a little gapping to this area, but near complete closure. INTRAOPERATIVE COMPLICATIONS: None. ESTIMATED BLOOD LOSS: Less than 10 mL. Dressings applied consisting of Adaptic, Betadine-soaked gauze, Kerlix fluffs, Flexicon, and Coban. The patient tolerated the procedure and the anesthesia well and left the operating room with vital signs stable and vascular status intact to the left foot as evidenced by hyperemia with removal of the Esmarch. Lane Segura DPM Electronically Signed By: LANE SEGURA DPM 02/06/21 09 PATIENT NAME: MARCELLA FERGUSON OPERATIVE REPORT DATE OF : 75 REPORT #: [id number] PHYSICIAN: LANE SEGURA DPM PCP: NO PRIMARY CARE PHYSICIAN REPORT IS CONFIDENTIAL AND NOT TO BE RELEASED WITHOUT AUTHORIZATION [facility] [address] [place] [address] [place], [place] [address] Signed PERRY/COBY /[id number] Copies: ~ Electronically Signed By: LANE SEGURA DPM 02/06/21 0902 PATIENT NAME: MARCELLA FERGUSON OPERATIVE REPORT DATE OF : 75 REPORT #: [id number] PHYSICIAN: LANE SEGURA DPM PCP: NO PRIMARY CARE PHYSICIAN REPORT IS CONFIDENTIAL AND NOT TO BE RELEASED WITHOUT AUTHORIZATION
--- NOTE | 2021-02-06 10:01 | NUR ---
Patient's pulse is 107. Patient is in bed and Mom is in room.
--- NOTE | 2021-02-06 10:30 | NUR ---
Attempted to call Brenda at 0900 and 1030 this am to confirm placement for this pt. Per staff she is not in. Spoke with Arian and he plans on leaving today either way. Mom has arrived and she will take pt home with her for tonight and will transport to [place] to his dad's house tomorrow. Pt's brother will assist him. Mom states she can transport him as long as it is daylight. Dr. Gutierrez notified and will complete orders. [facility] [place] with [facility] number and gave to mother. Instructed pt and mom for pt to see his pcp in [place] on Tuesday and follow up with placement to this SNF for care.
--- NOTE | 2021-02-06 10:45 | NUR ---
RN IN ROOM TO OFFERED PT NICOTIENT PACTH PT REFUSED, MOM IN ROOM VISITING WITH PT
[2021-02-06] MEDS ORDERED: NICOTINE PATCH1 EACH TD (11:27)
[2021-02-06] MEDS ORDERED: AUGMENTIN 875-1 EACH PO (11:28)
[2021-02-06] MEDS ORDERED: LEVEMIR FL100 UNIT/2 SUB-Q (11:29)
[2021-02-06] MEDS ORDERED: NOVOLOG FL100 UNIT/1 SUB-Q (11:31)
[2021-02-06] MEDS ORDERED: BLOOD GLUCOSE1 EAC5 MISC (11:33)
[2021-02-06] MEDS ORDERED: LANCETS1 EACH MISC (11:33)
[2021-02-06] MEDS ORDERED: BLOOD GLUCOSE1 EAC8 MISC (11:33)
--- NOTE | 2021-02-06 12:04 | NUR ---
LAB CALLED. DR SEGURA WANTED PATHOLOGY REPORTS FAXED TO HIS OFFICE ONCE COMPLETED. LAB NOTIFIED AND SAYS THEY WILL FAX THE REPORT ONCE AVAILABLE.
--- NOTE | 2021-02-06 12:05 | NUR ---
DRESSING CHANGE ORDERS RECIEVED VIA TELEPHONE. ORDERS PLACED IN DISCHARGE. READ BACK TO VERIFY ACCURACY. ORDERS WRITEEN IN DISCHARGE. PRIMARY NURSE NOTIFIED.
--- NOTE | 2021-02-09 14:54 | PATH ---
[facility] [address] [place], [place] [address] Signed SPECIMEN(S): A 5TH METATARSAL BASE SPECIMEN SOURCE: A. 5TH METATARSAL BASE CLINICAL HISTORY: Left foot wound, history of diabetes. FINAL PATHOLOGIC DIAGNOSIS: Fifth metatarsal base, excision: - Fragments of bone and fibrous tissue with necrotic debris and reactive changes. DDF:cml:C2NR MICROSCOPIC EXAMINATION: Histologic sections of all submitted blocks are examined by light microscopy. These findings, together with the gross examination, support the pathologic diagnosis. GROSS DESCRIPTION: The specimen, labeled "Sal Arian," and designated on the requisition "fifth metatarsal base," is received in formalin and consists of 1.2 x 0.6 x 0.4 cm aggregate of pink-white firm bone fragments. The specimen is entirely submitted in cassette (A1) and placed into Decal Stat prior to processing. FB (under the direct supervision of a pathologist) The Gross Description was prepared using a voice recognition system. The report was reviewed for accuracy; however, sound-alike word errors, addition and/or deletions may occur. If there is any question about this report, please contact Client Services. PERFORMING LABORATORY: The technical component was performed by [facility], [address] [place] [id number] (Environmental Lead: Sarah Leon MD; CLIA# [id number]). [facility], [address] [address] (CLIA# [id number]). Diagnostician: Salvatore Rivera DO Pathologist Electronically Signed 02/09/2021 PATIENT NAME: ARIAN FERGUSON PATHOLOGY DATE OF : 75 REPORT #: [id number] PHYSICIAN: [facility] PCP: NO PRIMARY CARE PHYSICIAN REPORT IS CONFIDENTIAL AND NOT TO BE RELEASED WITHOUT AUTHORIZATION [address] [address] Signed Copies: ~ PATIENT NAME: ARIAN FERGUSON PATHOLOGY DATE OF : 75 REPORT #: [id number] PHYSICIAN: [facility]FTAL[facility]TE PATHOLOGY PCP: NO PRIMARY CARE PHYSICIAN REPORT IS CONFIDENTIAL AND NOT TO BE RELEASED WITHOUT AUTHORIZATION
== END 2021-02-06 13:00 | disposition home or self-care (01) | DRG 854 ==
LOC: ED 18:16 → MS 21:26 → CCU 21:26 → MS 01-31 10:35
PROVIDERS: Podiatrist Foot Surgery; ADMIT Internal Medicine; ATTEND Internal Medicine
PROC: 0QBP0ZZ Excision of Left Metatarsal, Open Approach (ICD-10-PCS; principal; 2021-02-04 08:45)
DX: A40.1 Sepsis due to streptococcus, group B (principal); M86.8X7 Other osteomyelitis, ankle and foot; L03.116 Cellulitis of left lower limb; L02.612 Cutaneous abscess of left foot; I10 Essential (primary) hypertension; E10.65 Type 1 diabetes mellitus with hyperglycemia; E10.69 Type 1 diabetes mellitus with other specified complication; Z20.822 Contact with and (suspected) exposure to COVID-19; E10.628 Type 1 diabetes mellitus with other skin complications; D64.9 Anemia, unspecified; E10.621 Type 1 diabetes mellitus with foot ulcer; Z59.02 Unsheltered homelessness; L97.529 Non-pressure chronic ulcer of other part of left foot with unspecified severity; Z79.4 Long term (current) use of insulin; Z89.511 Acquired absence of right leg below knee
CPT/HCPCS: 01480; 71045; 73630; 73723; 80048; 80053; 80202; 81001; 82803; 83036; 83605; 83735; 84100; 85025; 87040; 87070; 87075; 87077; 87205; 88304; 88311; 90686; 97161; 97165; A9270; A9577; C1713; C9803; G0008; G0480; J0295; J0330; J0692; J1100; J1815; J1885; J2250; J2370; J2405; J2704; J2765; J2795; J3010; J3370; J7030; J7060; J7121; U0003

== ENCOUNTER 2023-06-17 13:31 | Emergency (ER) | payer OTHER ==
[~2023-06-17] VITALS: Ht 182.9 cm; Wt 59.3 kg
[~2023-06-17 13:31] MED LIST: ARTIFICIAL TEAR15 M6 OU; AUGMENTIN 875-1 EACH PO; BLOOD GLUCOSE1 EAC5 MISC; BLOOD GLUCOSE1 EAC8 MISC; LANCETS1 EACH MISC; LEVEMIR FL100 UNIT/2 SUB-Q; LOPERAMIDE2 MG PO; NICOTINE PATCH1 EACH TD; NOVOLOG FL100 UNIT/1 SUB-Q; ZESTRIL10 MG PO
[2023-06-17] MEDS ORDERED: SODIUM CHLORIDE 0.9% 1,000 ML IV ONE (13:45)
[2023-06-17 13:52] LABS: BASOPHILS 0.4 % (0-2); EOSINOPHILS 0.4 % (0-6); HEMATOCRIT 31.3 % (35.0-50.0); HEMOGLOBIN 10.4 g/dL (12.0-18.0); LYMPHOCYTES 8.8 % (24-44); MCH 27.6 (27-36); MCHC 33.2 g/dl (30-36); MCV 82.9 fl (81-99); MONOCYTES 6.6 % (0-12); NEUTROPHILS 83.8 % (39-80); PLATELET COUNT 235 K/uL (140-440); RBC 3.78 M/ul (4.3-5.7); RDW 13.2 (10.5-15.0)
[2023-06-17 14:08] LABS: ALBUMIN/GLOBULIN RATIO 0.83 (1.1-2.4); ALCOHOL, MEDICAL <3 ng/dL (<3); ALKALINE PHOSPHATASE 83 U/L (46-116); ALT (SGPT) 15 U/L (14-59); ANION GAP 15.2 (7-21); AST (SGOT) 52 U/L (15-37); BILIRUBIN, TOTAL 1.5 ng/dL (0.2-1.0); BUN/CREATININE RATIO 22.14 (6.0-28.6); CALCIUM 7.5 mg/dL (8.5-10.1); CARBON DIOXIDE 20 mmol/L (21-32); CHLORIDE 92 mmol/L (98-107); GLOMERULAR FILTRATION RATE,EST 62 mL/min (>60); POTASSIUM 4.2 mmol/L (3.5-5.1); PROTEIN, TOTAL 6.6 g/dL (6.4-8.2); UREA NITROGEN 31 mg/dL (7-18)
[2023-06-17] MEDS ORDERED: LACTATED RINGER'S 1,000 ML IV ONE (15:15)
[2023-06-17 15:20] LABS: LACTIC ACID, BLOOD 0.6 mmol/L (0.4-2.0)
[2023-06-17] MEDS ORDERED: KETOROLAC TROMETHAMINE 30 MG/ML VIAL IV ONE (16:00)
[2023-06-17] MEDS ORDERED: HYDROmorphone HCL 1 MG/ML SYR IV PRN (16:00)
[2023-06-17 16:48] LABS: BILIRUBIN, URINE NEGATIVE (negative); BLOOD/HGB, URINE SMALL (Negative); KETONE, URINE NEGATIVE (Negative); LEUK ESTERASE, URINE NEGATIVE (negative); NITRITE, URINE NEGATIVE (negative)
[2023-06-17 16:55] LABS: EPITHELIAL CELLS, URINE SQUAMOUS 1+ /lpf (0-1+); WHITE BLOOD CELLS, URINE 0-1 /HPF (0-5)
[2023-06-17 16:56] LABS: BACTERIA, URINE NONE SEEN /hpf (negative); CASTS, URINE NONE SEEN \\lpf; COLLECTION TYPE, URINE CLEAN CATCH; CRYSTALS, URINE NONE SEEN (0-1+); REFLEX CULTURE, URINE No (No)
[2023-06-17 17:02] LABS: AMPHETAMINES, URINE POSITIVE (NEGATIVE); BARBITURATES, URINE NEGATIVE (NEGATIVE); BENZODIAZEPINE, URINE NEGATIVE (NEGATIVE); BUPRENORPHINE, URINE NEGATIVE (NEGATIVE); CANNABINOID, URINE POSITIVE (NEGATIVE); COCAINE, URINE NEGATIVE (NEGATIVE); ECSTASY, URINE NEGATIVE (NEGATIVE); FENTANYL, URINE NEGATIVE (NEGATIVE); METHADONE, URINE NEGATIVE (NEGATIVE); OPIATES, URINE NEGATIVE (NEGATIVE); OXYCODONE, URINE NEGATIVE (NEGATIVE); PHENCYCLIDINE, URINE NEGATIVE (NEGATIVE)
[2023-06-17 18:44] VITALS: BP 119/92
--- NOTE | 2023-06-20 07:23 | EKG ---
[facility] [address] [facility] [place], [place] [address] Signed Normal sinus rhythm Prolonged QT Abnormal ECG No previous ECGs available Confirmed by Coco Davidson MD ([id number]) on 06/20/2023 7:24:12 AM Electronically Signed By: COCO DAVIDSON 06/20/23722 PATIENT NAME: MARCELLA FERGUSON Electrocardiogram DATE OF : 75 PHYSICIAN: COCO DAVIDSON REPORT #: [id number] REPORT IS CONFIDENTIAL AND NOT TO BE RELEASED WITHOUT AUTHORIZATION
== END 2023-06-17 18:44 | disposition home or self-care (01) ==
LOC: ED 13:31
PROVIDERS: Emergency Medicine
DX: F15.10 Other stimulant abuse, uncomplicated (principal); E10.9 Type 1 diabetes mellitus without complications; I10 Essential (primary) hypertension; Z79.4 Long term (current) use of insulin
CPT/HCPCS: 36415; 51701; 51798; 71045; 80053; 80307; 81001; 83605; 85025; 93005; 93010; 99284-25; G0480; J7030; J7121

== ENCOUNTER 2023-08-31 17:09 | Inpatient (IN) | payer OTHER ==
[~2023-08-31] VITALS: Ht 152.4 cm; Wt 63.0 kg
[2023-08-31] VITALS (8 sets, daily range): BP systolic 59–126; BP diastolic 36–87
--- NOTE | 2023-08-31 11:20 | NUR ---
PT BP 79/51 ON MONITOR. BP TAKEN MANUALLY WAS 78/48. DR STEVENSON CALLED AND MADE AWARE OF SITUATION. ORDER RECEIVED FOR 1L NS BOLUS, IF MAP ABOVE 65 AFTER BOLUS CONTINUE WITH MAINTANCE FLUID AT 125, IF MAP IS BELOW [address] ALSO MENTIONED CENTRAL LINE WILL BE CONSIDERED IN THE AM.
--- OUTSIDE RECORDS SUMMARY | 2023-08-31 17:16 | XMS ---
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 Jonathan VISIT COUNT (12 MO.) 2 [facility] TOTAL 4 NOTE: Visits indicate total known visits. ED/UCC VISIT TRACKING (12 MO.) 08/31/2023 17:09 SANGEETHA Delgado [place] TYPE: Emergency COMPLAINT: - WOUND CHECK 08/29/2023 13:[address] [facility] David QUINN (Lydia Freeman) TYPE: Emergency DIAGNOSES: - Leg Pain (Non-traumatic) - Pain in Back 06/17/2023 13:31 SANGEETHA Angulo TYPE: Emergency COMPLAINT: - OD DIAGNOSES: - Essential (primary) hypertension - roasterman (current) use of insulin - Other stimulant abuse, uncomplicated - Type 1 diabetes mellitus without complications 04/03/2023 05:32 [facility] TYPE: Emergency INPATIENT VISIT TRACKING (12 MO.) No inpatient visits to display in this time frame [email or web address]
[2023-08-31] MEDS ORDERED: CEFEPIME HCL/D5W 2 GM/100 ML PIGGYBACK IV ONE (17:30)
[2023-08-31] MEDS ORDERED: SODIUM CHLORIDE 0.9% 1,000 ML IV ONE ×2 (17:30→19:00)
[2023-08-31 17:37] LABS: HEMATOCRIT 31.2 % (35.0-50.0); MCH 26.3 (27-36); MCHC 32.1 g/dl (30-36); PLATELET COUNT 463 K/uL (140-440)
[2023-08-31 17:56] LABS: ALBUMIN 2.1 g/dL (3.4-5.0); ALBUMIN/GLOBULIN RATIO 0.4 (1.1-2.4); BILIRUBIN, TOTAL 0.6 ng/dL (0.2-1.0); BUN/CREATININE RATIO 33.08 (6.0-28.6); CALCIUM 8.5 mg/dL (8.5-10.1); CREATININE, SERUM 1.36 mg/dL (0.70-1.30); PROTEIN, TOTAL 7.4 g/dL (6.4-8.2)
[2023-08-31 17:59] LABS: BANDS, MANUAL DIFF 1; LYMPHOCYTES, MANUAL DIFF 7; MONOCYTES, MANUAL DIFF 9; NEUTROPHILS, MANUAL DIFF 83
[2023-08-31 18:02] LABS: LACTIC ACID, BLOOD 1.6 mmol/L (0.4-2.0)
[2023-08-31 18:04] LABS: INR 1.05 (0.80-1.30)
[2023-08-31 18:06] LABS: ANION GAP 17.2 (7-21); POTASSIUM 4.2 mmol/L (3.5-5.1)
[2023-08-31] MEDS ORDERED: HYDROmorphone HCL 1 MG/ML SYR IV PRN (19:00)
[2023-08-31] MEDS ORDERED: SODIUM CHLORIDE 0.9% 1,000 ML IV SCH ×2 (19:00→23:30)
[2023-08-31] MEDS ORDERED: ondansetron HCL 4 MG/2 ML VIAL IV PRN (19:00)
[2023-08-31] MEDS ORDERED: GLUCAGON,HUMAN RECOMBINANT 1 MG/ML VIAL SUB-Q PRN (19:00)
[2023-08-31] MEDS ORDERED: DEXTROSE 5% 1,000 ML IV PRN (19:00)
[2023-08-31] MEDS ORDERED: ACETAMINOPHEN 500 MG TAB PO PRN (19:00)
[2023-08-31] MEDS ORDERED: DEXTROSE 50% 50 ML SYR IV PRN ×2 (19:00)
[2023-08-31] MEDS ORDERED: PROCHLORPERAZINE EDISYLATE 10 MG/2 ML VIAL IV PRN (19:00)
[2023-08-31] MEDS ORDERED: IBLOOD GLUCOSE TEST STRIP 1 EA TEST XX PRN (19:00)
[2023-08-31] MEDS ORDERED: MAGNESIUM HYDROXIDE 30 ML UDC PO PRN (19:00)
[2023-08-31] MEDS ORDERED: PANTOPRAZOLE SODIUM 40 MG/10 ML VIAL IV SCH (19:04)
[2023-08-31] MEDS ORDERED: INSULIN LISPRO 100 UNIT/ML ML IV ONE (19:15)
[2023-08-31] MEDS ORDERED: DAPTOmycin 500 MG/10 ML VIAL IV SCH (19:15)
--- NOTE | 2023-08-31 19:50 | NUR ---
pt arrived to the unit via stretcher. report recieved from ER nurse.
[2023-08-31] MEDS ORDERED: IBLOOD GLUCOSE TEST STRIP 1 EA TEST VI SCH (20:00)
[2023-08-31] MEDS ORDERED: INSULIN LISPRO 100 UNIT/ML ML SUB-Q SCH (20:00)
--- NOTE | 2023-08-31 20:20 | NUR ---
PT ASSESSMENT COMPLETE. PT AWAKE, RESPONDING APPROPRIATLY TO QUESTIONS AND FOLLOWS COMMANDS. PT LUNGS ARE CLEAR, ON RA WITH SATURATION ABOVE 92%. PT IS TACHYCARDIC WITH HR IN THE 120-130'S. PT HEART RATE NOTED TO GET UP TO 150 BPM AT ONE POINT. PT DENIES ANY PAIN AT THIS TIME. PT HAS THREE IV SITES THAT ARE WNL. PT HAS NS HUNG TO GRAVITY INFUSING. PT STATED HE FEELS NAUSEOUS. PT HAS BILAT BKA. PT LEFT KNEE HAS OLD WOUND. PT RIGHT KNEE HAS ONE OPEN WOUND OPEN TO AIR, AND ONE WOUND THAT IS COVERED WITH PACKING AND GUAZE THAT WAS PLACED IN THE ED.
[2023-08-31] MEDS ORDERED: MELATONIN 3 MG TAB PO PRN (21:00)
[2023-08-31] MEDS ORDERED: HEParin SOD (PORCINE) 5,000 UNIT/0.5 ML SYR SUB-Q SCH (21:00)
[2023-08-31 21:50] LABS: ANION GAP 13.6 (7-21); BUN/CREATININE RATIO 32.23 (6.0-28.6); CALCIUM 7.6 mg/dL (8.5-10.1); CREATININE, SERUM 1.21 mg/dL (0.70-1.30); POTASSIUM 3.6 mmol/L (3.5-5.1)
[2023-08-31] MEDS ORDERED: CEFEPIME HCL/D5W 2 GM/100 ML PIGGYBACK IV SCH (22:00)
--- NOTE | 2023-08-31 23:15 | NUR ---
PT HAD EPISODE OF PEEING ON THE FLOOR. RN CLEANED UP. PT BEDDING CHANGED AND NEW GOWN PROVIDED. PT HAS NO NEEDS AT THIS TIME. CALL LIGHT WITHIN REACH.
[2023-09-01] VITALS (28 sets, daily range): BP systolic 72–177; BP diastolic 47–93
--- NOTE | 2023-09-01 02:00 | NUR ---
PT SITTING UP IN BED AND STATES HE FEELS NAUSEOUS. PT PROVIDED WITH NAUSEA MEDICATION- SEE EMAR. PT HAS NO FURTHER NEEDS AT THIS TIME. CALL LIGHT WITHIN REACH. BED IN LOCKED AND LOW POSITON WITH BED ALARM ON.
[2023-09-01 05:40] LABS: BASOPHILS 0.2 % (0-2); EOSINOPHILS 0.2 % (0-6); HEMATOCRIT 25.1 % (35.0-50.0); HEMOGLOBIN 8.3 g/dL (12.0-18.0); MCV 81.7 fl (81-99); MONOCYTES 7.5 % (0-12); NEUTROPHILS 84.1 % (39-80); PLATELET COUNT 355 K/uL (140-440); RBC 3.07 M/ul (4.3-5.7); RDW 14.3 (10.5-15.0)
[2023-09-01 06:08] LABS: ALBUMIN 1.5 g/dL (3.4-5.0); ALBUMIN/GLOBULIN RATIO 0.37 (1.1-2.4); ANION GAP 11.4 (7-21); BILIRUBIN, TOTAL 0.4 ng/dL (0.2-1.0); BUN/CREATININE RATIO 27.43 (6.0-28.6); CALCIUM 7.4 mg/dL (8.5-10.1); CREATININE, SERUM 1.13 mg/dL (0.70-1.30); POTASSIUM 3.4 mmol/L (3.5-5.1); PROTEIN, TOTAL 5.6 g/dL (6.4-8.2)
--- NOTE | 2023-09-01 06:30 | NUR ---
PATIENT WOKE EASILY TO VOICE. DENIED NEED TO VOID. REPORTS ONGOING HIPPCUPS BUT DENIED NAUSEA. MINIMAL APPETITE AT THIS TIME. CALL LIGHT IN REACH.
--- NOTE | 2023-09-01 08:30 | NUR ---
PATIENT AWAKE IN BED, INCONTINENT OF STOOL. DRESSING CHANGE ON RLE, LINEN CHANGED. HAIR AND FACE/HANDS WASHED. PATIENT PAINFUL BUT ROLLS WELL. CALL LIGHT IN REACH, PATIENT REMONED TO CALL. BED ALARM ON FOR SAFETY.
[2023-09-01] MEDS ORDERED: POTASSIUM CHLORIDE 10 MEQ/100 ML BAG IV ONE (09:00)
[2023-09-01] MEDS ORDERED: ZESTRIL10 MG PO (09:23)
[2023-09-01] MEDS ORDERED: LEVEMIR100 UNIT/1 SUB-Q (09:24)
[2023-09-01] MEDS ORDERED: NOVOLOG FL100 UNIT/1 SUB-Q (09:26)
[2023-09-01] MEDS ORDERED: IBUPROFEN400 MG PO (09:26)
[2023-09-01] MEDS ORDERED: TYLENOL325 MG PO (09:27)
--- NOTE | 2023-09-01 09:30 | NUR ---
MRI STAFF CALLED AND STATED THEY WERE READY NOW FOR PATIENT. SPOKE WITH MD BECKHAM PER PATIENT CAN GO TO SCAN WITHOUT PRIVATE SECRETARY. UPDATED MRI STAFF TO CALL IF THEY HAVE ANY CONCERNS AND STAFF WITH COME ASSIST. PATIENTS BLOOD PRESSURES 90-100 SYSTOLIC. PATIENT HAS BEEN APPROPRIATE AND SLEPT MOST OF THE AM.
--- NOTE | 2023-09-01 10:30 | NUR ---
PATIENT ARRIVED BACK FROM MRI STUDY. STAFF ASSISTED PATIENT TO THE BED. NEW LINEN WAS PLACED PRIOR TO PATIENT BEING MOVED TO BED. PATIENT TOELRATED WELL. IVS AND MONITORS CONTINUED. PATIENT DENIES ANY OTHER NEEDS AT THIS TIME.
--- NOTE | 2023-09-01 10:40 | NUR ---
Lengthy visit with pt and his mom Chichi. Pt has returned from [place] where he was homeless and is staying with his mom. He was at the homeless care home at the [facility] in, but mom brought him home with her. She is always concerned as she could possible lose her housing as she is not to have additional people living in her [place] housing. Pt has drug issues and this has caused problems for mom in the past. Pt and mom have been working with [facility] and Sarah Renae is his pillowcase cutter. Mom hands me a packet of letters from [facility]. Most are letters requesting signatures and pt has refused to sign. Mom believes Art is elibile for a cg in the home. Per pt, he needs to have an AKA. Per nurses and notes, waiting for further work up. Pt states he uses his wc and has scooter, but it needs a battery. Pt states he now has money for shopping and needs. He is unable to shop for himself. He also states he has been working with [employer] and they are helping him get into housing. I will call SAVANAH and [facility].
[2023-09-01] MEDS ORDERED: MAGNESIUM SULFATE 2 GM/50 ML BAG IV ONE (10:45)
--- NOTE | 2023-09-01 11:24 | NUR ---
UR CLINICAL REVIEW: [facility] INPATIENT CRITERIA FOR [facility] CCU- INPT 08/31/23 @ 1901 ORDER MATCHES STATUS AUTH PENDING, CLINICALS FAXED VIA RIGHTFAX TO [facility] PLAN TO DC TO MOTHER'S HOME VS SNF/INPT REHAB AT DC 09/04/23
[2023-09-01 11:38] LABS: BASOPHILS 0.3 % (0-2); EOSINOPHILS 0.1 % (0-6); HEMATOCRIT 25.5 % (35.0-50.0); HEMOGLOBIN 8.3 g/dL (12.0-18.0); LYMPHOCYTES 6.9 % (24-44); MCH 26.7 (27-36); MCHC 32.4 g/dl (30-36); MCV 82.3 fl (81-99); NEUTROPHILS 86.7 % (39-80); PLATELET COUNT 381 K/uL (140-440); RDW 14.6 (10.5-15.0)
--- NOTE | 2023-09-01 11:45 | NUR ---
SPOKE WITH MD. PATIENTS MRI RESULTS RETURNED CALLED MD GONZALEZ WHO STATED HE WOULD REVIEW RESULTS. PER MD NO SURGERY TODAY. UPDATED MD KORR OF THIS AND PER MD PATIENT MAY HAVE A 60G CARB DIET AND ENCOURAGE PO INTAKE. 1L BOLUS NS AT THIS TIME D/T CONTINUED BLOOD PRESSURES 90-100 SYSTOLIC AND CONCENTRATED URINE. PATIENT MORE AWAKE AT THIS TIME. PATIENTS MOM AT THE BEDSIDE. ALTON WITH CASE MANAGEMENT IN TO DISCUSS PLANS FOR DISCHARGE WHEN HE IS READY.
[2023-09-01 11:47] LABS: BILIRUBIN, URINE NEGATIVE (negative); BLOOD/HGB, URINE SMALL (Negative); KETONE, URINE SMALL (Negative); LEUK ESTERASE, URINE NEGATIVE (negative); NITRITE, URINE NEGATIVE (negative)
[2023-09-01 11:47] LABS: ANION GAP 12.9 (7-21); BUN/CREATININE RATIO 26.12 (6.0-28.6); CALCIUM 7.6 mg/dL (8.5-10.1); CREATININE, SERUM 1.11 mg/dL (0.70-1.30); POTASSIUM 3.9 mmol/L (3.5-5.1)
[2023-09-01 11:54] LABS: RED BLOOD CELLS, URINE 0-1 /hpf (0-5); WHITE BLOOD CELLS, URINE 0-1 /HPF (0-5)
[2023-09-01 11:55] LABS: BACTERIA, URINE RARE /hpf (negative); CASTS, URINE GRANULAR 1+ \\lpf; COLLECTION TYPE, URINE CLEAN CATCH; CRYSTALS, URINE NONE SEEN (0-1+); EPITHELIAL CELLS, URINE 0 /lpf (0-1+); REFLEX CULTURE, URINE No (No)
[2023-09-01] MEDS ORDERED: PHARMACY RENAL DOSE ADJUSTMENT 1 DOSE MISC PO SCH (12:00)
[2023-09-01 12:07] LABS: AMPHETAMINES, URINE NEGATIVE (NEGATIVE); BARBITURATES, URINE NEGATIVE (NEGATIVE); BENZODIAZEPINE, URINE NEGATIVE (NEGATIVE); BUPRENORPHINE, URINE NEGATIVE (NEGATIVE); CANNABINOID, URINE POSITIVE (NEGATIVE); COCAINE, URINE NEGATIVE (NEGATIVE); ECSTASY, URINE NEGATIVE (NEGATIVE); FENTANYL, URINE NEGATIVE (NEGATIVE); METHADONE, URINE NEGATIVE (NEGATIVE); OPIATES, URINE NEGATIVE (NEGATIVE); OXYCODONE, URINE NEGATIVE (NEGATIVE); PHENCYCLIDINE, URINE NEGATIVE (NEGATIVE)
--- NOTE | 2023-09-01 12:09 | NUR ---
MED REC COMPLETE
[2023-09-01] MEDS ORDERED: SODIUM CHLORIDE 0.9% 1,000 ML IV SCH (12:15)
--- NOTE | 2023-09-01 12:24 | NUR ---
PATIENT REQUESTED COFFEE AND WATER. PATIENTS FOOD ORDERED AND AWAITING FOR IT TO ARRIVE.
--- NOTE | 2023-09-01 13:40 | NUR ---
PT INCONTINENT OF LARGE AMOUNT LIQUID STOOL. PT CLEANED, CLEAN BRIEF AND CHUCKS PAD PLACED. PT DENIES FURTHER NEEDS AT THIS TIME. CALL LIGHT IN REACH. FAMILY INTO ROOM AT BEDSIDE.
--- NOTE | 2023-09-01 14:15 | NUR ---
VISITED DURING SPIRITUAL CARE ROUNDS. PT ON PHONE. DID NOT INTERRUPT. PROVIDED PRAYER.
--- NOTE | 2023-09-01 14:17 | NUR ---
Called and left a message with Radha at [facility] asking if they are assisting this pt with housing. Called and left a message for Sarah at [facility] then called the worker of the day, Aminata. 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 They have sent multiple letters and ROIs and pt has not signed or returned. He is not currently eligible for services. Sarah returned my call as I was finishing with Aminata. She states she will visit pt tomorrow to get completed papers. She also states as pt has psych issues and drug use his chart will need to be reviewed someone else at the state level. Pt's case may need to be turned over to mental health.
--- NOTE | 2023-09-01 14:45 | NUR ---
Spoke with pt and his mom. Updated I called [facility] and left a message. Pt is on hold and states he is holding for [facility] as they have called him. Updated I spoke with Sarah Gilbert from [facility]. He has not completed any paperwork. She will visit him tomorrow and get papers signed to start process for intermediate medicaid. Mom asks if she can speak to me out of the room. She asks if I know how she can get gardianship of Giovanna. Let her know I can call Legal at the [place] and get a phone number for her. She states everyone has given up on him as he cont. to make very poor decisions that cause him harm.
--- NOTE | 2023-09-01 15:10 | EKG ---
[facility] [address] [facility] [place] [address] Signed Sinus tachycardia Rightward axis ST elevation, consider early repolarization, pericarditis, or injury Abnormal ECG When compared with ECG of 17-JUN-2023 13:52, No significant change was found Confirmed by Ti Landis ([id number]) on 09/01/2023 3:10:06 PM Electronically Signed By: TI LANDIS MD 09/01/23 1510 PATIENT NAME: MARCELLA FERGUSON Electrocardiogram DATE OF : 75 PHYSICIAN: TI LANDIS MD REPORT #: [id number] REPORT IS CONFIDENTIAL AND NOT TO BE RELEASED WITHOUT AUTHORIZATION
--- NOTE | 2023-09-01 15:35 | NUR ---
PATIENT REPORTED NAUSEA. PRN MEDICATION GIVEN. ASSSITED ONTO BEDPAN. PATIENT REPORTS HE TAKE LOPERIMIDE FOR LOOSE STOOL AT HOME AND IT HELPS. PATIENT MEDICATIONS STARTED. ALTON WITH CASE MANAGEMENT IN TO DISCUSS OPTIONS WITH PATIENT AND HIS MOM ABOUT DISCHARGE ASSISTANCE.
--- NOTE | 2023-09-01 15:46 | NUR ---
PATIENT FINISHED ON BEDPAN, MED LIQUID STOOL CHARTED. TOOTHPASTE AND MOUTHWASH PROVIDED. CALL LIGHT IN EASY REACH
[2023-09-01] MEDS ORDERED: DICYCLOMINE HCL 10 MG CAP PO PRN (16:00)
[2023-09-01] MEDS ORDERED: SIMETHICONE 125 MG TABLET CHEWABLE PO PRN (16:00)
--- NOTE | 2023-09-01 16:19 | NUR ---
PATIENT WATCHING TV IN BED. SPOKE WITH MD IN REGARDS TO PATIENT REQUESTING SOMETHING FOR HIS STOOL AND CRAMPING. SEE EMAR FOR NEW ORDERS.
--- NOTE | 2023-09-01 16:40 | NUR ---
Called and spoke with Legal at the [employer]. They recommend mom call legal support assistant as they contract with the [employer]. She also states there is a farm truck driver that does legal work with [employer]. She will look if they can assist with guardianship. I will get numbers to mom tomorrow.
[2023-09-01] MEDS ORDERED: IBLOOD GLUCOSE TEST STRIP 1 EA TEST VI SCH (17:00)
[2023-09-01] MEDS ORDERED: INSULIN LISPRO 100 UNIT/ML ML SUB-Q SCH (17:00)
--- NOTE | 2023-09-01 17:30 | NUR ---
GONZALEZ IN TO SEE PATIENT AND UPDATE ON PATIENTS IMAGING AND PLAN OF CARE. MD RECOMMENDS AMPUTATION FURTHER UP THE RIGHT LEG. PATIENT AGREEABLE TO PLAN. PATIENTS MOTHER AT THE BEDSIDE AND ALSO AGREEABLE TO PLAN OF CARE. ALL QUESTIONS ANSWERED. PATIENT SITTING UP WATCHING TV AT THIS TIME. DRESSING REMAINS CLEAN DRY AND INTACT.
--- NOTE | 2023-09-01 19:45 | NUR ---
HANDOFF REPORT RECEIVED FROM DAY SHIFT RN
--- NOTE | 2023-09-01 20:15 | NUR ---
PT ASSESSMENT COMPLETE. PT IS LAYING IN BED WITH TV ON. PT ASSISTED WITH URINAL. PT STATES HE IS COLD, WARM BLANKET PROVIDED. PT STATES HE FEELS NAUSOUS BUT DENIES ANY PAIN. PT IS ON RA, TOLERTING WELL. PT LUNGS ARE CLEAR AND DIMINISHED. PT IS ALERT AND ORINETED. PT RIGHT STUMP DRESSING IS C/D/I. PT HAS NO FURTHER NEEDS AT THIS TIME. CALL LIGHT WITHIN REACH, BED ALARM SET AND IN LOCKED AND LOW POSTION.
--- NOTE | 2023-09-01 20:35 | NUR ---
PT NAUSEA MEDICINE GIVEN - PLEASE SEE EMAR. PT HAS NO FURTHER NEEDS AT THIS TIME, CALL LIGHT WITHIN REACH.
--- NOTE | 2023-09-01 21:20 | NUR ---
CONSENT FORM SIGNED BY PATIENT FOR MORNING PROCEDURE. CONSENT FORM PLACED IN PATIENT CHART.
--- NOTE | 2023-09-01 21:45 | NUR ---
REPORTED POSITIVE BLOOD CULTURES TO . VERBAL ORDER RECEIVED FOR REPEAT BLOOD CULTURES IN THE MORNING AND AN ECHO TO BE DONE. VERIFIED VIA REPEAT BACK.
[2023-09-02] VITALS (8 sets, daily range): BP systolic 107–139; BP diastolic 66–97
[2023-09-02] MEDS ORDERED: LIDOCAINE HCL 2% 5 ML SDV ONE ×2 (08:16→09:34)
[2023-09-02] MEDS ORDERED: propofoL 200 MG/20 ML VIAL ONE (08:16)
[2023-09-02] MEDS ORDERED: Ropivacaine HCl 0.5% 30 ML VIAL ONE (08:17)
[2023-09-02] MEDS ORDERED: SODIUM CHLORIDE 0.9% 40 ML IV ONE (08:17)
[2023-09-02] MEDS ORDERED: dexmedeTOMIDine HCl 200 MCG/2 ML VIAL ONE (08:17)
[2023-09-02] MEDS ORDERED: TRANEXAMIC ACID 2,000 MG in SODIUM CHLORIDE 0.9% 100 ML IV SCH (09:00)
[2023-09-02] MEDS ORDERED: PANTOPRAZOLE SODIUM 40 MG TABEC PO SCH (09:00)
[2023-09-02] MEDS ORDERED: ePHEDrine sulfate 50 MG/ML AMP ONE (09:49)
[2023-09-02] MEDS ORDERED: LACTATED RINGER'S 1,000 ML IV ONE (10:24)
[2023-09-02] MEDS ORDERED: ACETAMINOPHEN 1,000 MG/100 ML VIAL IV PRN (10:30)
--- NOTE | 2023-09-02 10:39 | NUR ---
1039 PT ARRIVED TO PACU GRIMACING AND MOANING. 6L VIA MASK IN PLACE, RESP EVEN AND UNLABORED. PT REPORTS 10/10 PAIN IN THE BACK OF RIGHT UPPER LEG. 1047 ALLIGATOR HUNTER GIVING PAIN MEDICATION (SEE ANESTHESIA INTRAOP SHEET). O2 REMOVED. PT ENCOURAGED TO DEEP BREATHE AND IS REORIENTED TO PACU. RN HELPS PT ROLL TO LEFT SIDE AND PILLOW PLACED UNDER RIGHT STUMP. 1053 PAIN MEDICATION GIVEN, PT RATE PAIN 10/10. O2 SAT UPPER 90S AND PT CONTINEUS TO GRAB AT RIGHT LEG AND ROLLING AROUND IN BED AND MOANING. 1100 PAIN MEDICATION GIVEN DUE TO NO CHANGE IN PAIN LEVEL. PT AWAKE AND ABLE TO VERBALIZE AND POINT TO AREA OF PAIN. PT CONTINUES TO DENY NAUSEA. 1116 PT FALLS ASLEEP AND PERIOD OF APNEA NOTED. RN WAKES PT AND DEEP BRETHING ENCOURAGED. PT REPORTS NO CHANGE IN PAIN AND GRIMACING NOTED. PT DROWSY AND FALLS BACK TO SLEEP WHEN NOT STIMULATED. 1145 PT MOANING AND GRIMACING AND HOLDING IS RIGHT LEG. PT REPORTS "IT FEELS LIKE A EALLY BAD MUSCLE CRAMP." ALLIGATOR HUNTER CALLED AND NEW ORDERS RECEIVED. 1152 PAIN MEDICATION GIVEN. PT RESTING AND NOT MOVING AROUND IN BED AND GRIMACING LESS THEN ARRIVAL. PT RPEORTS "NOT REALLY" ANY DECREASE IN PAIN. "CAN I HAVE A HEAT PACK?." HEAT PACK PLACED TO RIGHT LEG AND EDUCATION GIVEN ON NO PLACING HEAT ON SURGICAL SITE, PT AGREES AND PT REPORTS "ITS HELPING A LITTLE." 1230 PT RETURNED TO CCU AND REPORT GIVEN. PT RESTING IN BED AND REPORTS 5/10 PAIN AND ABLE TO FALL ASLEEP AND VSS. BED PLUGGED IN AND ALL QUESITONS ANSWERED.
[2023-09-02] MEDS ORDERED: fentaNYL citrate 50 MCG/ML SDV ONE ×2 (10:45→11:05)
[2023-09-02] MEDS ORDERED: HYDROmorphone HCL 1 MG/ML SYR ONE ×2 (10:51→11:13)
--- NOTE | 2023-09-02 11:30 | NUR ---
In to see Art. He is OR. I spoke with a friend in the legal department at the [facility] last night. She recommended I call DCFS, called them and they gave me the phone number for Charan Cline [phone] over housing. Called and spoke with Charan. He states [place] for any reason. He cannot stay in housing for care. He will be arrested if he is seen in the housing area or anywhere on the [place]. Mom also could lose her housing if Arian is found there. Arian will not be able to stay with mom after dc. Will check with SNFS in our area and fax the chart. I did speak with Saarh Renae from [facility] this am. She attempted see Arian at 0930 this am and I let her know he was in surgery. She will return later this afternoon.
--- NOTE | 2023-09-02 11:30 | NUR ---
Attempted to see pt. He is in surgery. Will contact [facility] for phone numbers for mother.
[2023-09-02] MEDS ORDERED: MIDAZOLAM HCL 2 MG/2 ML VIAL ONE (11:47)
[2023-09-02] MEDS ORDERED: KETOROLAC TROMETHAMINE 30 MG/ML VIAL ONE (11:48)
[2023-09-02] MEDS ORDERED: ACETAMINOPHEN 1,000 MG/100 ML VIAL ONE (11:49)
[2023-09-02] MEDS ORDERED: KETOROLAC TROMETHAMINE 30 MG/ML VIAL IV ONE (12:00)
--- NOTE | 2023-09-02 12:30 | NUR ---
PT RETURNS TO ROOM FROM OR VIA BED WITH PIT CRANE OPERATOR - DROWSY BUT ORIENTED. RATES PAIN 5/10 IN RIGHT LEG, REPORTS MUSCLE CRAMP, HEAT PACK IN PLACE FROM PACU. PT DENIES NAUSEA. VS STABLE. CALL LIGHT IN REACH.
[2023-09-02 12:57] LABS: HEMATOCRIT 25.2 % (35.0-50.0); HEMOGLOBIN 7.9 g/dL (12.0-18.0); MCH 25.9 (27-36); MCHC 31.5 g/dl (30-36); MCV 82.4 fl (81-99); PLATELET COUNT 365 K/uL (140-440); RBC 3.06 M/ul (4.3-5.7); RDW 14.8 (10.5-15.0)
[2023-09-02 12:59] LABS: NEUTROPHILS, MANUAL DIFF 85
[2023-09-02 13:00] LABS: BANDS, MANUAL DIFF 1; BASOPHILS, MANUAL DIFF 1; EOSINOPHILS, MANUAL DIFF 0; LYMPHOCYTES, MANUAL DIFF 6; MONOCYTES, MANUAL DIFF 7
[2023-09-02 13:09] LABS: BUN/CREATININE RATIO 16.51 (6.0-28.6); CREATININE, SERUM 1.09 mg/dL (0.70-1.30); POTASSIUM 3.6 mmol/L (3.5-5.1)
[2023-09-02 13:10] LABS: ALBUMIN 1.4 g/dL (3.4-5.0); ALBUMIN/GLOBULIN RATIO 0.34 (1.1-2.4); ANION GAP 12.6 (7-21); BILIRUBIN, TOTAL 0.3 ng/dL (0.2-1.0); CALCIUM 7.1 mg/dL (8.5-10.1); PROTEIN, TOTAL 5.5 g/dL (6.4-8.2)
--- NOTE | 2023-09-02 14:23 | NUR ---
09/02/23 1423 Vinita Kaur SEE DOWN TIME PAPER CHARTING
--- NOTE | 2023-09-02 14:23 | NUR ---
PT SITTING UP IN BED VISITING WITH MOTHER. LUNCH PROVIDED, PT DENIES NAUSEA OR PAIN. INSULIN COVERAGE ADMINISTERED. DRESSING TO RIGHT LEG C/D/I. CALL LIGHT IN REACH. VS STABLE.
--- NOTE | 2023-09-02 14:57 | NUR ---
Phone number for [facility] given. Discussed SNFs with pt as he will need placement. He will not be able to stay with mom at home. They are requesting placement. [facility], and [facility] are pts choices. Charts faxed to these 3 SNFS.
--- NOTE | 2023-09-02 15:01 | NUR ---
Spoke with Shayla from [facility], they have a couple of beds open. They will review the chart.
[2023-09-02] MEDS ORDERED: NALOXONE HCL 0.4 MG SYR IV PRN (15:45)
[2023-09-02] MEDS ORDERED: fentaNYL citrate 100 MCG/2 ML VIAL IV PRN (15:45)
[2023-09-02] MEDS ORDERED: HYDROmorphone HCL 1 MG/ML SYR IV PRN (15:45)
[2023-09-02] MEDS ORDERED: MIDAZOLAM HCL 2 MG/2 ML VIAL IV PRN (15:45)
--- NOTE | 2023-09-02 15:51 | NUR ---
PT PROVIDED COFFEE PER REQUEST. 100% LUNCH EATEN WITHOUT NASUSEA. PT DENIES NEEDS AT THIS TIME. CALL LIGHT IN REACH.
--- NOTE | 2023-09-02 17:59 | NUR ---
ECHO IN PROGRESS.
--- NOTE | 2023-09-02 19:45 | NUR ---
ROUNDING ON PATIENT HE REPORTS PAIN IS INCREASING STEADILY. ASSESSMENT COMPLETE, DISCUSSED PLAN OF CARE FOR TONIGHT WITH PATIENT. WILL REVIEW MEDICATION PAIN PLAN.
--- NOTE | 2023-09-02 19:55 | NUR ---
AFTER REVIEWING ORDERS IN CHART AND EMAR, TYLENOL PRN ONLY AT THIS TIME, SHIFT REPORT INDICATED THERE WOULD BE OXYCODONE AVAILABLE. CALLED , HE SAID HE HAD WROTE THE ORDER IN CHART. AFTER REVIEWING PAPER CHART WRITTEN ORDER IS THERE AND PLACED INTO COMPUTER EMAR.
[2023-09-02] MEDS ORDERED: OXYCODONE HCL 5 MG TAB PO PRN (20:00)
--- NOTE | 2023-09-02 20:09 | NUR ---
PATIENT ADMINISTERED OXYCODONE 10MG PO PRN AND TYLENOL PRN FOR PAIN /, ALSO SIMETHICONE FOR REPORTS OF BLOATED FEELING. SCHEDULED MEDICATIONS ALSO ADMINISTERED WELL 5 UNITS LISPRO FOR BLOOD SUGAR OF 237. DRESSING BELOW RIGHT HIP SURGICAL CLEAN, DRY, INTACT. PATIENT REFUSED TO ALLOW ICE PACK TO BE PLACED FOR PAIN AND INFLAMMATION POST OP.
--- NOTE | 2023-09-02 21:55 | NUR ---
PATIENT VOIDED 800ML IN URINAL, PATIENT INTERESTED IN PAIN MEDICATION NEXT DOSE, DISCUSSED ORDERS AND PLAN FOR MANAGEMENT, PATIENT AGREEABLE. HE HAS BEEN ABLE TO SLEEP BEFORE WAKING TO RN IN ROOM TO START ABX ADMINISTRATION.
--- NOTE | 2023-09-02 22:51 | NUR ---
PATIENT PULLED OUT IV SITE AT LEFT WRIST, HE REPORTS THE COBAN AT HIS WRIST HOLDING THE LINE FELT TOO TIGHT. NEW IV SITE ESTABLISHED AT RIGHT FA.
[2023-09-03] VITALS (27 sets, daily range): BP systolic 90–137; BP diastolic 57–98
--- NOTE | 2023-09-03 00:05 | NUR ---
PATIENT NEW IV SITE INFILTRATED, IT HAD BRISK BLOOD RETURN WHEN PLACED. NEW IV SITE ESTABLISHED IN RIGHT UPPER FOREARM. ASSESSMENT, THIS RN NOTED SMALL AMOUNT OF DRAINAGE ON CHUCKS AND PILLOW UNDER PATIENT RIGHT ABOVE KNEE AMPUTATION SITE, TOP JESSIKA WRAP TAKEN BACK AND TWO ABD PADS PLACED AND THEM RE-WRAPPED. PATIENT REPORTS PAIN 8/10 PAIN, 15MG PO OXYCODONE PRN ADMINISTERED. PATIENT HAS BEEN VERY ACTIVE IN BED, ANIMATED IN CHANGING POSITIONS. DRAINAGE IS SEROSANGUINEOUS.
--- NOTE | 2023-09-03 00:42 | NUR ---
CALLED DUE TO EXCESSIVE JANICE RED BLEEDING NOTED AT THIS TIME. NEW ORDER FOR 2OOO MG TXA .
[2023-09-03] MEDS ORDERED: TRANEXAMIC ACID 2,000 MG in SODIUM CHLORIDE 0.9% 100 ML IV ONE (00:45)
[2023-09-03] MEDS ORDERED: TRANEXAMIC ACID 1,000 MG/10 ML AMP ONE (01:00)
--- NOTE | 2023-09-03 01:00 | NUR ---
UPDATED ON PHONE, IN REGARDS TO PATIENT BLEEDING FROM SURGICAL SITE, NEW ORDERS FROM . GAVE NEW ORDERS FOR STAT CBC, AND TO TYPE AND SCREEN AND CROSS MATCH FOR 2 UNITS.
[2023-09-03 01:28] LABS: BASOPHILS 0.2 % (0-2); EOSINOPHILS 0.7 % (0-6); HEMATOCRIT 21.3 % (35.0-50.0); HEMOGLOBIN 6.9 g/dL (12.0-18.0); LYMPHOCYTES 9.5 % (24-44); MCH 26.3 (27-36); MCHC 32.3 g/dl (30-36); MCV 81.4 fl (81-99); MONOCYTES 5.5 % (0-12); NEUTROPHILS 84.1 % (39-80); PLATELET COUNT 362 K/uL (140-440); RBC 2.62 M/ul (4.3-5.7); RDW 15.1 (10.5-15.0)
--- NOTE | 2023-09-03 01:48 | NUR ---
DRESSING JESSIKA TAKEN DOWN, REINFORCED WITH THREE ABD, KERLIX TO HOLD ABD IN PLACE. THEN REPLACED JESSIKA WRAP SPIKA DRESSING WITH MODERATE COMPRESSION, TXA INFUSED. NOTED THAT TWO ABD PAD FROM [facility] REINFORCEMENT SATURATED AND MATTED. LAB IS CROSS MATCHING 2 UNITS OF BLOOD, LAB WILL CALL WHEN AVAILABLE.
[2023-09-03 02:22] LABS: ABO A; RH POSITIVE
[2023-09-03 02:22] LABS: ABO A; ANTIBODY SCREEN NEGATIVE; RH POSITIVE
[2023-09-03 02:42] LABS: IS CROSSMATCH COMPATIBLE
--- NOTE | 2023-09-03 03:03 | NUR ---
CALLED TO REPORT CBC RESULTS, ORDER TO ADMINISTER 1 UNIT PRBC AND THEN CHECK CBC TWO HOURS AFTER COMPLETE.
--- NOTE | 2023-09-03 03:40 | NUR ---
PATIENT BLOOD STARTED AT THIS TIME, PER ORDERS.
--- NOTE | 2023-09-03 03:57 | NUR ---
PATIENT COMPLETED FIRST 15MIN. NO SIGNS OF REACTION, TOLERATING INFUSION WELL. HE IS RESTING IN BED, EYES CLOSED, CHIEF COMPLAINT IS HICCUPS.
--- NOTE | 2023-09-03 05:03 | NUR ---
PATIENT RESTING QUIETLY IN BED, RELAXED POSITION, EYES CLOSED, V/S STABLE ON STRAIGHTEDGE MACHINE OPERATOR HELPER. NOTED TO HAVE SMALL AMOUNT OF BLOOD DRAINAGE, ON ABD VISIBLE FROM UNDER THE JESSIKA WRAP.
--- NOTE | 2023-09-03 07:30 | NUR ---
REPORT RECIEVED FROM HASSOCK MAKER RN. PATIENT RESTING IN BED AT THIS TIME. ALL STAFF IN TO ASSESS RIGHT AKA TO MONITOR FOR BLEEDING. SOME DRAINAGE NOTED ON BLANKET. PLACED CHUCKS PAD UNDER LEG FOR CLOSER MONITORING OF DRAINAGE. IN THE NIGHT STAFF ADDRESSED SIGNIFICANT DRAINAGE NOTED AROUND 1230. PATIENT DENIES ANY OTHER ENEDS AT THIS TIME. CALL LIGHT IN REACH.
[2023-09-03 07:45] LABS: BASOPHILS 0.2 % (0-2); EOSINOPHILS 0.9 % (0-6); HEMATOCRIT 21.3 % (35.0-50.0); LYMPHOCYTES 9.5 % (24-44); MCH 27.1 (27-36); MCHC 32.8 g/dl (30-36); MCV 82.7 fl (81-99); MONOCYTES 6.1 % (0-12); NEUTROPHILS 83.3 % (39-80); PLATELET COUNT 333 K/uL (140-440); RBC 2.58 M/ul (4.3-5.7); RDW 15.1 (10.5-15.0)
[2023-09-03 07:57] LABS: ALBUMIN 1.2 g/dL (3.4-5.0); ALBUMIN/GLOBULIN RATIO 0.32 (1.1-2.4); ANION GAP 11.8 (7-21); BILIRUBIN, TOTAL 0.3 ng/dL (0.2-1.0); CALCIUM 6.6 mg/dL (8.5-10.1); CREATININE, SERUM 1.09 mg/dL (0.70-1.30); POTASSIUM 3.8 mmol/L (3.5-5.1); PROTEIN, TOTAL 4.9 g/dL (6.4-8.2)
--- NOTE | 2023-09-03 08:45 | NUR ---
ADDRESSED PATIENTS HEMOGLOBIN WITH MD AFTER 1 UNIT OF PRBC AND LABS WERE COMPELTED. PATIENT VALUES REMAIN LOW. PER MD GIVE 2ND UNIT OF PRBC AND WILL MONITOR CBC. PATIENT AGREEABLE TO PLAN OF CARE.
[2023-09-03] MEDS ORDERED: INSULIN GLARGINE-YFGN 100 UNIT/ML ML SUB-Q SCH (09:00)
--- NOTE | 2023-09-03 09:00 | NUR ---
STAFF IN TO CHANGE PATIENT OF INCONTINENT STOOL AND GIVE AM MEDICATIONS AND BREAKFAST. PATIENT TOLERATED WELL. PATIENT VITALS STABLE.
--- NOTE | 2023-09-03 09:52 | NUR ---
2ND UNIT OF PRBC STARTED AT 0935. PATIENT TOELRATING WELL WITH NO ISSUES. PATIENT SITTING UP IN BED RESTING AT THIS TIME. PATIENT LEG CHECKED AND NO NEW DRAINAGE NOTED. CALL LIGHT IN REACH. BED IN LWOEST POSITION. PATIENT PROVIDED WITH FRESH ICE WATER.
--- NOTE | 2023-09-03 10:09 | OR ---
[facility] [address], [place] [address] Signed DATE OF OPERATION: 09/02/2023 SURGEON: Brendon Singh MD PREOPERATIVE DIAGNOSIS: Sepsis and infection, right lower extremity. POSTOPERATIVE DIAGNOSIS: Sepsis and infection, right lower extremity. PROCEDURE PERFORMED: Right above knee amputation guillotine style. ANESTHESIA: General. TOURNIQUET TIME: 22 minutes. ESTIMATED BLOOD LOSS: 100 mL. BRIEF HISTORY: Arian is a 47-year-old gentleman with uncontrolled diabetes and severe infection in his right knee and lower BKA stump. The skin was completely gone over the distal tibia and it was dry and exposed. MRI showed tracking in the fluid posteriorly of the lower thigh. There was fluid and presumed infection in the knee as well as the bursa. The bursa had been drained in the ER without effect. It continued to drain significant amounts of olive colored purulence. Risks, benefits, and alternatives of above knee amputation were discussed with him. He understood, wished to proceed. PROCEDURE IN DETAIL: Once consent was obtained, he was taken to the operating room. After adequate anesthesia, he was placed on operating room table and the right lower extremity was wrapped in Ioban over the knee and distal BKA stump. It was then prepped and draped in a standard sterile fashion and the distal stump was placed in a sterile tourniquet bag and wrapped with Coban. A circumferential bird's mouth incision was made one handsbreadth above the patella, carried circumferentially through the subcutaneous tissue. Anteriorly, it was carried through the muscle and down to the femur. Circumferential dissection around the femur was undertaken. We did encounter Electronically Signed By: BRENDON SINGH MD 09/03/23 1009 PATIENT NAME: ARIAN FERGUSON OPERATIVE REPORT DATE OF : 75 REPORT #: [id number] PHYSICIAN: BRENDON SINGH MD PCP: NO PRIMARY CARE PHYSICIAN REPORT IS CONFIDENTIAL AND NOT TO BE RELEASED WITHOUT AUTHORIZATION [facility] [address], [place] [address] Signed substantial cloudy to white purulent material subcutaneously along the iliotibial band as far proximal as the tourniquet. We had inflated the tourniquet by this point. The leg was not exsanguinated. The femur was then cleared of soft tissue and the saw was used to create the osteotomy. Using the amputation knife, we were able to remove the posterior soft tissue and passed the remaining infected limb off the table. There was extensive again clotted white fluid in the posterior compartment. This was then the muscle, the subcutaneous tissue, and multiple cystic like lesions. The anterior and medial compartments were clear. All bleeders were cauterized. The femoral vessels were identified and dissected free of soft tissue and tied with multiple 0 silk stick ties. The tourniquet was then released. Two small bleeders were cauterized, but no other significant bleeding was encountered. The pulse manager auto was then used to subcutaneously irrigate up the iliotibial band and posteriorly in the pocket. 3 L of normal saline was run through this. We then used a bottle of Surgiphor on all the exposed tissue and into the two cavities. We then placed one Surgiphor soaked sponge laterally along the ITB band and two in the posterior cavity. Once this was completed, the wound was again inspected for bleeders and none were found. It was then packed with saline soaked Kerlix sponges followed by dry Kerlix sponges. This was then covered over with multiple ABDs. This was then held in place with two rolls of Kerlix rolls. The Kerlix was then covered with Coban and a sterile Usman wrap. He was awakened, taken to recovery room in satisfactory condition. All sponge, needle, and instrument counts were correct. Brendon Singh MD BA/MODL /[id number] Copies: ~ Electronically Signed By: BRENDON SINGH MD 09/03/23 1009 PATIENT NAME: ARIAN FERGUSON OPERATIVE REPORT DATE OF : 75 REPORT #: [id number] PHYSICIAN: BRENDON SINGH MD PCP: NO PRIMARY CARE PHYSICIAN REPORT IS CONFIDENTIAL AND NOT TO BE RELEASED WITHOUT AUTHORIZATION
[2023-09-03] MEDS ORDERED: MAGNESIUM SULFATE 2 GM/50 ML BAG IV ONE (11:15)
--- NOTE | 2023-09-03 12:25 | NUR ---
ENID RN IN TO GIVE PRN PAIN MEDICATION. SEE EMAR FOR CHARTING.
--- NOTE | 2023-09-03 12:30 | NUR ---
PATIENTS BLOOD SUGAR CHECKED AND SLIDING SCALE INSULIN GIVEN FOR COVERAGE. PATIENT UP EATING LUNCH. PATIENT LEG CHECKED AT THIS TIME AND REMAISN THE SAME WITH MINIMAL DRAINAGE NOTED. CALL LIGHT IN REACH.
[2023-09-03 13:49] LABS: C. DIFF TOXIN B GENE TCDB,PCR Not Detected (())
[2023-09-03 14:18] LABS: HEMATOCRIT 25.9 % (35.0-50.0); RBC 3.08 M/ul (4.3-5.7)
[2023-09-03 14:22] LABS: BASOPHILS 0.5 % (0-2); EOSINOPHILS 1.3 % (0-6); HEMOGLOBIN 8.5 g/dL (12.0-18.0); LYMPHOCYTES 10.8 % (24-44); MCH 27.7 (27-36); MCV 83.9 fl (81-99); MONOCYTES 6.6 % (0-12); NEUTROPHILS 80.8 % (39-80)
--- NOTE | 2023-09-03 14:54 | NUR ---
THIS RN IN TO ASSESS PATIENTS LEG AND DRAINAGE FROM RIGHT LEG OPERATION SITE. PATIENT REPORTS PAIN IS MUCH IMPROVED WITH PAIN MEDICATION TREATMENT. PATIENT USED URINAL UNASSISTED AND TOLERTED WELL. MEDICATIONS STARTED VIA IVS. PATIENT REPORTS WANTING TO REST FOR NOW AND WOULD LIKE A BED BATH LATER TODAY. CALL LIGHT IN [facility]. MINIMAL DRAINAGE NOTED ON CHUCKS PAD. MD GONZALEZ IS AWARE. LABS COMPLETED. WILL UPDATE MD OF RESULTS.
[2023-09-03] MEDS ORDERED: LOPERAMIDE HCL 2 MG CAP PO PRN (15:30)
[2023-09-03] MEDS ORDERED: LOPERAMIDE HCL 2 MG CAP PO ONE (15:30)
--- NOTE | 2023-09-03 16:00 | NUR ---
PATIENT CONTINUING TO REST WELL SINCE PAIN MEDICATIONS. PER PATIENT PAIN REMAISN TOLERABLE. CALL LIGHT IN REACH. NO OTHER NEEDS AT THIS TIME. PATIENTS DRAINAGE REMAINS UNCHANGED.
--- NOTE | 2023-09-03 17:00 | NUR ---
PATIENT BEDBATH GIVEN WITH 2 RN ASSIST. PATIENT ABLE TO ASSIST IN CARE. LINEN CHANGED. NEW CHUCKS PAD PLACED UNDER RIGHT LEG. VERY MINIMAL DRAINAGE NOTED ON CHUCKS PAD. PATIENT PLACED IN ATTENDS PER REQUEST D/T LOOSE STOOL. PO MEDICATION GIVEN. PATIENT DENEIS ANY OTHER NEEDS AT THIS TIME. CALL LIGHT IN REACH. PATIENT REPORTS CONTROLLED PAIN AT THIS TIME. WILL GET BLOOD SUGAR AND BRING DINNER.
[2023-09-03 19:10] LABS: BASOPHILS 0.4 % (0-2); EOSINOPHILS 1.4 % (0-6); HEMOGLOBIN 8.7 g/dL (12.0-18.0)
[2023-09-03 19:17] LABS: HEMATOCRIT 26.3 % (35.0-50.0); MCH 27.4 (27-36); MCHC 33.2 g/dl (30-36); MCV 82.7 fl (81-99); MONOCYTES 7.1 % (0-12); NEUTROPHILS 79.1 % (39-80); PLATELET COUNT 371 K/uL (140-440); RBC 3.18 M/ul (4.3-5.7); RDW 15.3 (10.5-15.0)
--- NOTE | 2023-09-03 21:00 | NUR ---
PATIENT REPORTS PAIN 8/10, HE REPORTS NAUSEA. ZOFRAN ADMINISTERED, HE THEN SAID HE WANTS LESS PAIN MEDICATION, OXYCODONE 5MG PO PRN ADMINISTERED. PATIENT IS ALERT TO NAME BUT IS MORE DROWSY, HE REPORTS HE HAS A COUPLE NAPS ON DAYSHIFT, BUT STILL FEELS TIRED.
--- NOTE | 2023-09-03 22:51 | NUR ---
SMALL AMOUNT OF SEROSANGUINOUS DRAINAGE ON CHUCKS UNDER RIGHT STUMP SURGERY SITE.
--- NOTE | 2023-09-03 23:56 | NUR ---
PATIENT ALERT AND ORIENTED TO THIS RN AT BEDSIDE. HE ASKED FOR SNACK, CRACKERS AND SUGAR FREE VANILLA PUDDING, WELL DIET SPRITE. PATIENT BLOOD SUGAR THIS EVENING WAS 112, HELD INSULIN.
[2023-09-04] VITALS (11 sets, daily range): BP systolic 105–134; BP diastolic 66–93
[2023-09-04 00:47] LABS: EOSINOPHILS 1.3 % (0-6); MONOCYTES 6.1 % (0-12); RBC 3.13 M/ul (4.3-5.7)
[2023-09-04 01:14] LABS: BASOPHILS 0.5 % (0-2); HEMATOCRIT 25.8 % (35.0-50.0); HEMOGLOBIN 8.6 g/dL (12.0-18.0); LYMPHOCYTES 10.4 % (24-44); MCH 27.4 (27-36); MCHC 33.2 g/dl (30-36); MCV 82.6 fl (81-99); NEUTROPHILS 81.7 % (39-80); PLATELET COUNT 386 K/uL (140-440); RDW 15.3 (10.5-15.0)
--- NOTE | 2023-09-04 03:16 | NUR ---
ROUNDING ON PATIENT, NOTED HIS IV SITE AT RIGHT WRIST IS PULLED LOOSE, ON ASSESSMENT, PATIENT HAD PULLED IV SITE LOOSE TIP OF CATHETER REMAINED IN SKIN CAUSING GRADE ONE INFILTRATION. PATIENT REPOSITIONED.
--- NOTE | 2023-09-04 03:53 | NUR ---
20G, 1.75" USIV PLACED @ 0.5CM IN DEPTH. GOOD BLOOD RETURN, FLUSHED WELL. PT TOELRATED WELL. RFA IV NOT ABIMBOLAT, DCd WNL BY JAMEEL SANCHEZ. PRIMARY RN IN ROOM TO PROVIDE MEDICATIONS.
--- NOTE | 2023-09-04 03:57 | NUR ---
PATIENT REPORTS NAUSEA/ABD CRAMP, PATIENT ADMINISTERED BENTYL AND ZOFRAN PRN. HE CONITNUES TO HAVE HICCUPS.
--- NOTE | 2023-09-04 04:20 | NUR ---
PATIENT ALERT AND ORIENTED WATCHING. NO REQUESTS OR CONCERNS AT THIS TIME
[2023-09-04 05:59] LABS: BASOPHILS 0.2 % (0-2); EOSINOPHILS 1.4 % (0-6); HEMATOCRIT 25.5 % (35.0-50.0); HEMOGLOBIN 8.4 g/dL (12.0-18.0); LYMPHOCYTES 11.8 % (24-44); MCH 27.4 (27-36); MCHC 32.9 g/dl (30-36); MCV 83.2 fl (81-99); MONOCYTES 6.7 % (0-12); NEUTROPHILS 79.9 % (39-80); PLATELET COUNT 404 K/uL (140-440); RBC 3.06 M/ul (4.3-5.7)
[2023-09-04 06:09] LABS: ALBUMIN 1.3 g/dL (3.4-5.0); ALBUMIN/GLOBULIN RATIO 0.32 (1.1-2.4); ANION GAP 11.8 (7-21); BILIRUBIN, TOTAL 0.3 ng/dL (0.2-1.0); BUN/CREATININE RATIO 11.95 (6.0-28.6); CALCIUM 6.8 mg/dL (8.5-10.1); CREATININE, SERUM 0.92 mg/dL (0.70-1.30); POTASSIUM 3.8 mmol/L (3.5-5.1); PROTEIN, TOTAL 5.4 g/dL (6.4-8.2)
--- NOTE | 2023-09-04 06:34 | NUR ---
PATIENT HAS HAD TWO DOSES OF PAIN MEDICATION OVER NIGHT, 5MG OXYCODONE START OF SHIFT AND 10MG MIDDLE SHIFT, HE HAS REQUESTED NAUSEA MEDICATION TWICE OVER SHIFT. HE WAS ADMINISTERED BENTYL ONCE FOR "STOMACH PAIN", PATIENT HAS PULLED IV FROM RIGHT WRIST, AND RIGHT FOREARM NO LONGER PATENT OVER SHIFT, US GUIDED IV IN LEFT FOREARM. HE HAS SLEPT INTERMITTEN OVER NIGHT, CONTINUES TO HAVE HICCUPS FREQUENTLY. HE IS VOIDING WELL IN URINAL. HAS HAD SMALL AMOUNT OF SEROSANGUINEOUS DRAINAGE. V/S STABLE, AFEBRILE, H/H LABS HOLDING FOR MIDNIGHT AND AM LABS. NO STOOL OVERNIGHT.
--- NOTE | 2023-09-04 08:04 | NUR ---
Report received from Kathleen SANCHEZ. Patient resting in bed with eyes closed, even and unlabored respirations on room air. IVF infusing WNL. No needs identified at this time, FISCAL TECHNICIAN Chanell in room for CBG check, breakfast tray delivered. Call light in reach, will continue plan of care for day.
[2023-09-04] MEDS ORDERED: MAGNESIUM SULFATE 2 GM/50 ML BAG IV ONE (09:00)
--- NOTE | 2023-09-04 09:00 | NUR ---
Scheduled medications administered, assessment complete. Patient requesting PRN pain medication for 10/10 pain to R leg surgical area. 10mg oxycodone administered. Patient alert and oriented x4. On room air. LSC, BTA. R leg examined, small amount serosanguinous drainage noted, dressing intact. Elevated on pillows. IV ABX and mag rider given, heparin SQ given per order and verbal confirmation from Dr Landis. Pt repositioned in bed for comfort/pressure relief. Pt mother arrives and assisted to room. No further needs stated at this time. Call light in reach.
--- NOTE | 2023-09-04 09:45 | NUR ---
DR GONZALEZ INFORMED THIS RN THAT PT HAS LOW SODIUM AND IT NEEDS TO BE IN THE 130S FOR SURGERY TOMORROW. REQUESTED THAT WE CALL HOSPITALIST FOR ORDERS, PRIMARY RN CHARLEEN NOTIFIED
[2023-09-04] MEDS ORDERED: SODIUM CHLORIDE 0.9% 1,000 ML IV ONE (10:30)
--- NOTE | 2023-09-04 10:37 | NUR ---
PT DECLINING BREAKFAST, STATES HE DOESN'T HAVE AN APPITITE. BLOOD SUGAR CHECKED, CBG 131. PRIMARY RN NOTIFIED
[2023-09-04] MEDS ORDERED: MORPHINE SULFATE 4 MG/ML VIAL IV PRN (10:45)
--- NOTE | 2023-09-04 11:11 | NUR ---
NS bolus infusing. Patient continues to bend arm to occlude IV, this RN in room to restart and educate patient on short term solution of keeping arm straight for fluid bolus.
--- NOTE | 2023-09-04 14:20 | NUR ---
IV ABX infusing WNL. Patient states no needs at this time. Resting in bed watching tv, on room air.
[2023-09-04 14:25] LABS: ANION GAP 7.6 (7-21); BUN/CREATININE RATIO 10.52 (6.0-28.6); CALCIUM 6.8 mg/dL (8.5-10.1); CREATININE, SERUM 0.95 mg/dL (0.70-1.30); POTASSIUM 3.6 mmol/L (3.5-5.1)
--- NOTE | 2023-09-04 16:11 | NUR ---
Patient resting in bed with eyes closed, even and unlabored respirations, on room air. IVF infusing WNL. Patient has no apparent needs at this time.
--- NOTE | 2023-09-04 16:32 | NUR ---
Patient asleep in bed. No identified needs at this time. VSS. on RA. Call celestine oseguera.
[2023-09-04] MEDS ORDERED: FUROSEMIDE 40 MG/4 ML VIAL IV ONE (17:00)
[2023-09-04] MEDS ORDERED: POTASSIUM CHLORIDE 10 MEQ TABCR PO ONE (17:15)
--- NOTE | 2023-09-04 18:30 | NUR ---
Bed changed as patient had incontinent urine soaked through bedsheets. Patient is able to roll back and forth with encouragement, albeit painful. Dressing to R hip/stump changed-- fresh ABD pads, kerlex, and JESSIKA wrap applied. Patient repositioned in bed and warm blankets provided. Afebrile at this time, tachycardic however at 125. Patient states he is the "most comfortable he has been all day" and states no further needs. Bed bath complete with linen change.
[2023-09-04 19:47] LABS: ANION GAP 11.7 (7-21); BUN/CREATININE RATIO 10.57 (6.0-28.6); CALCIUM 7.3 mg/dL (8.5-10.1); CREATININE, SERUM 1.04 mg/dL (0.70-1.30); POTASSIUM 3.7 mmol/L (3.5-5.1)
[2023-09-04] MEDS ORDERED: ACETAMINOPHEN 325 MG TAB PO PRN (22:45)
--- NOTE | 2023-09-04 23:15 | NUR ---
GAVE NEW ORDER TO TRY THORAZINE FOR INTRACTABLE HICCUPS
[2023-09-04] MEDS ORDERED: chlorproMAZINE HCL 25 MG/ML AMP ONE (23:44)
[2023-09-05] VITALS (17 sets, daily range): BP systolic 101–140; BP diastolic 50–102
[2023-09-05] MEDS ORDERED: SODIUM CHLORIDE 0.9% 1,000 ML IV SCH
--- NOTE | 2023-09-05 00:14 | NUR ---
PATIENT REPORTS 10/10 PAIN, 10MG OXYCODONE PO PRN ADMINISTERED WITH WATER. EXPLAINED TO PATIENT HE IS NOW NPO STATUS FOR SURGERY LATER TODAY.
--- NOTE | 2023-09-05 01:33 | NUR ---
ROUNDING ON PATIENT HE REPORTS "PHANTOM PAINS" AT HIS RLE STUMP, HE REPORTS "IT FEELS LIKE A SLOW CUTTING KNIFE" PATIENT IS ALERT AND ORIENTED, HE HAS BEEN SLEEPING INTERMITTEN OVER SHIFT.
--- NOTE | 2023-09-05 04:32 | NUR ---
PATIENT ASKED FOR HOT TEA, REQUEST DENIED HE HAS SURGERY TODAY, LEMON SWABS PROVIDED. HE HAS NO OTHER REQUESTS AT THIS TIME
[2023-09-05 05:32] LABS: EOSINOPHILS 1.2 % (0-6)
[2023-09-05 05:36] LABS: BASOPHILS 0.4 % (0-2); HEMATOCRIT 24.4 % (35.0-50.0); LYMPHOCYTES 14.7 % (24-44); MCH 27.2 (27-36); MCHC 32.8 g/dl (30-36); MONOCYTES 8.1 % (0-12); NEUTROPHILS 75.6 % (39-80); PLATELET COUNT 453 K/uL (140-440); RBC 2.94 M/ul (4.3-5.7); RDW 15.1 (10.5-15.0)
[2023-09-05 05:47] LABS: ALBUMIN 1.2 g/dL (3.4-5.0); ALBUMIN/GLOBULIN RATIO 0.29 (1.1-2.4); ANION GAP 10.8 (7-21); BILIRUBIN, TOTAL 0.2 ng/dL (0.2-1.0); BUN/CREATININE RATIO 10.86 (6.0-28.6); CREATININE, SERUM 0.92 mg/dL (0.70-1.30); POTASSIUM 3.8 mmol/L (3.5-5.1); PROTEIN, TOTAL 5.4 g/dL (6.4-8.2)
--- NOTE | 2023-09-05 06:12 | NUR ---
PATIENT HAS SLEPT INTERMITTEN, HAS REQUIRED ONE DOSE 10MG OXYCODONE EARLY IN SHIFT, TYLENOL LATER, NO REPORT OF NAUSEA OR FURTHER PAIN COMPLAINT. HE HAS HAD SMALL SMEAR BM. SCANT DRAINAGE AFTER DRESSING JESSIKA AND ABD CHNAGE DAYSHIFT TUESDAY. HE WAS DROWY AT START OF SHIFT, ALERT TO NAME, HAS BEEN ORIENTED. VOIDED 3225 ML OVER SHIFT.
[2023-09-05] MEDS ORDERED: TRANEXAMIC ACID 2,000 MG in SODIUM CHLORIDE 0.9% 100 ML IV SCH (07:00)
--- NOTE | 2023-09-05 07:54 | NUR ---
Report received from Kathleen SANCHEZ. CBG checked, 148. Patient states feeling hungry and would like breakfast. Reports moderate level of pain at this time, made plan for PRN medications. Patient on RA, IVF infusing WNL, dressing to R leg C/D/I.
--- NOTE | 2023-09-05 09:35 | NUR ---
Scheduled medications administered, patient provided with 10mg oxycodone for 8/10 pain to R stump surgical site. Held SS and LA insulin at this time as patient CBG is 148. Held heparin injection.
[2023-09-05] MEDS ORDERED: MAGNESIUM SULFATE 2 GM/50 ML BAG IV ONE (10:15)
--- NOTE | 2023-09-05 10:20 | NUR ---
Attempted to see pt, he is gone to surgery. I was notified by [facility] and [facility] in [place] they are declining this pt. I was able to speak with Heather at [facility]. She will review pts chart and could assess/assist pt with [place] medicaid.
--- NOTE | 2023-09-05 10:55 | NUR ---
IVPB Mag rider infusing. Patient IV site flushes well. Patient states minimal pain at this time, no needs, other than thirsty. Oral swab provided for comfort. LR hanging in room, chart prepared for surgery.
--- NOTE | 2023-09-05 11:09 | NUR ---
PATIENT TO OR.
[2023-09-05] MEDS ORDERED: SODIUM CHLORIDE 0.9% 40 ML IV ONE (11:45)
[2023-09-05] MEDS ORDERED: LIDOCAINE HCL 2% 5 ML SDV ONE (11:45)
[2023-09-05] MEDS ORDERED: propofoL 200 MG/20 ML VIAL ONE (11:45)
[2023-09-05] MEDS ORDERED: dexmedeTOMIDine HCl 200 MCG/2 ML VIAL ONE (11:45)
[2023-09-05] MEDS ORDERED: Ropivacaine HCl 0.5% 30 ML VIAL ONE (11:45)
--- NOTE | 2023-09-05 11:58 | NUR ---
VISITED DURING SPIRITUAL CARE ROUNDS. PT GONE FOR PROCEDURE. PROVIDED PRAYER.
[2023-09-05] MEDS ORDERED: LACTATED RINGER'S 1,000 ML IV ONE (12:16)
[2023-09-05] MEDS ORDERED: ePHEDrine sulfate 50 MG/ML AMP ONE (12:27)
--- NOTE | 2023-09-05 13:28 | NUR ---
Patient returns from OR, per report dressing change under general anesthesia complete. Patient reporting no pain at this time. On RA, VSS.
--- NOTE | 2023-09-05 13:30 | NUR ---
09/05/23 1330 Viviana Bennett 1251 PT ARRIVED IN PACU SLEEPY WITH NO C/O'S. 1305 ICE TO R AKA. PT TALKING TO STAFF. 1315 C/O FEELING HUNGRY. EXPLAINED HE CAN LUNCH WHEN RETURNS TO ROOM. PT EXPRESSED UNDERSTANDING. 1324 TO CCU. REPORT GIVEN TO RN. BED PLUGGED IN.
--- NOTE | 2023-09-05 14:45 | NUR ---
VSS. on RA. Patient denies pain at this time. Dressing intact to R stump. IVF infusing WNL.
--- NOTE | 2023-09-05 15:40 | NUR ---
Patient purewick still intact and suctioning dilute yellow urine. Physical therapy in to see patient. IV ABX and IVF infusing per order. Patient has no needs at this time.
--- NOTE | 2023-09-05 16:02 | NUR ---
Call light answered, patient requests warm blankets. Patients mother in room. No needs at this time.
--- NOTE | 2023-09-05 17:30 | NUR ---
CBG checked, SS insulin provided, dinner provided. Patient states no needs at this time, VSS, on RA. Call light in reach.
--- NOTE | 2023-09-05 19:51 | NUR ---
PATIENT SITTING UP IN BED, ALERT AND ORIENTED TALKING ON ROOM PHONE WITH HIS MOTHER.
--- NOTE | 2023-09-05 20:45 | NUR ---
PATIENT ASSESSMENT DONE NOTED PATIENT MALE PURWICK LEAKING FROM SCROTUM AREA BACK UNDER PATINET, PATIENT RIGHT STUMP ELEVATED ON PILLOW THAT PREVENTED URINE FROM CONTACT WITH DRESSING. FULL BED CHANGE, DRESSING AT RIGHT STUMP IS CLEAN, DRY AND INTACT. NEW MALE PURWICK PLACED. NO NEW CONCERNS ON ASSESSMENT AT THIS TIME.
--- NOTE | 2023-09-05 23:29 | NUR ---
PATIENT ALERT AND ORIENTED, REPORTS FEELING STRESSED, ABOUT HIS HEALTH OVERALL. HE IS GIVEN HIMSELF A BED BATH AND SHAMPOO SHOWER CAP. HE REPORTS 5/10 PAIN NOW TYLENOL AND MELATONIN ADMINISTERED FOR PAIN.
[2023-09-06] VITALS (10 sets, daily range): BP systolic 98–135; BP diastolic 76–96
--- NOTE | 2023-09-06 00:43 | NUR ---
PATIENT CALLED FOR ASSISTANCE TO USE BED TELLO, PATIENT HAD REMOVED VELCRO OF SPIKA DRESSING AND TUCKED BEHIND HIS BACK, PATIENT HAD ASKED THIS RN TO REMOVE EARLIER IN SHIFT, EDUCATIONS PROVIDED TO IMPORTANCE AND OF ORDER FOR IT. PATIENT HAD LARGE LOOSE BM IN BED TELLO, STOOL WAS ON PORTION OF JESSIKA WRAPPED HE HAD TUCKED BEHIND HIMSELF. THIS PORTION CUT OFF END TAPED. NOOTHER PORTION OF DRESSING WAS SOILED. PATIENT SAID HE DIDNT WANT SPIKA RE[LACED THIS RN SAID, "IN THE MORNING IT WILL NEED TO BE BACK IN PLACE BEFORE SAYSHIFT ACTIVITIES" HE DID NOT ACKNOWLEDGE THIS RN. PATIENT ALSO VOIDED 650ML IN URINAL. NO COMPLAINT OF PAIN OR REQUEST FOR PAIN MEDICATIONS AT THIS TIME.
--- NOTE | 2023-09-06 04:14 | NUR ---
PATIENT VOIDED IN URINAL, CONSUMED THIRD LUNCH BOX THIS SHIFT. HE IS ALERT AND ORIENTED. HE HAS NO FURTHER REQUESTS.
--- NOTE | 2023-09-06 05:17 | NUR ---
PATIENT HAS SLEPT INTERMITTENLY, HE HAS VOIDED 2700ML OVER SHIFT THUS FAR. HIS V/S HAVE BEEN STABLE, AFEBRILE, ON ROOM AIR 95-100% OXYGEN SATURATION. HIS PAIN IS WELL MANAGED WITH CURRENT MEDICATIONS ORDERED. RIGHT STUMP SURGICAL DRESSING HAS REMAINED CLEAN, DRY AND INTACT. ICE HAS BEEN USED INTERMITTNELY. HE REMOVED HIS JESSIKA FROM AROUND HIS WAIST, HE RESISTS HAVING IT REPLACED. HE HAS HAD ONE LARGE LOOSE BM. HAS HAD THREE HOT TEAS AND ONE CUP OF CHICKEN BROTH, HE DECLINED A GLUCERNA PROTEIN SHAKE, HE REPORTS THEY CAUSE HIM DIARRHEA.
[2023-09-06 05:25] LABS: BASOPHILS 0.5 % (0-2); EOSINOPHILS 1.1 % (0-6); HEMATOCRIT 24.2 % (35.0-50.0); HEMOGLOBIN 7.9 g/dL (12.0-18.0); LYMPHOCYTES 16.2 % (24-44); MCH 27.1 (27-36); MCHC 32.5 g/dl (30-36); MCV 83.2 fl (81-99); MONOCYTES 10.1 % (0-12); NEUTROPHILS 72.1 % (39-80); PLATELET COUNT 527 K/uL (140-440); RDW 14.9 (10.5-15.0)
[2023-09-06 05:38] LABS: ALBUMIN 1.2 g/dL (3.4-5.0); ALBUMIN/GLOBULIN RATIO 0.28 (1.1-2.4); ANION GAP 8.9 (7-21); BILIRUBIN, TOTAL 0.3 ng/dL (0.2-1.0); BUN/CREATININE RATIO 8.6 (6.0-28.6); CREATININE, SERUM 0.93 mg/dL (0.70-1.30); MAGNESIUM 1.5 mg/dL (1.8-2.4); POTASSIUM 3.9 mmol/L (3.5-5.1); PROTEIN, TOTAL 5.5 g/dL (6.4-8.2)
--- NOTE | 2023-09-06 05:53 | OR ---
[facility] [address], [place] [address] Signed DATE OF OPERATION: 09/05/2023 SURGEON: Brendon Singh MD PREOPERATIVE DIAGNOSES: Sepsis and fasciitis, right lower extremity with osteomyelitis. POSTOPERATIVE DIAGNOSES: Sepsis and fasciitis, right lower extremity with osteomyelitis. PROCEDURE PERFORMED: Irrigation and debridement skin, subcutaneous tissue and bone, right lower extremity. SENIOR C SOFTWARE ENGINEER: None. ANESTHESIA: General. BLOOD LOSS: Minimal. TOURNIQUET TIME: Zero. 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 He had sepsis with an exposed tibia and infection in the back of the leg up to the lower thigh. He was noted also on time of operation to have subfascial fluid consistent with strep laterally. He underwent the above knee amputation on Tuesday and tolerated well. His white count has near normalized at this point. He is no longer febrile. He was felt to be stable for irrigation and debridement of the tissue and was brought back after consent was obtained. DESCRIPTION OF PROCEDURE: He was placed on operating table. After adequate anesthesia, the prior dressing was removed including the three Kerlix packings. The clot posteriorly was removed. There was a small bleeder that was cauterized. We then debrided the soft tissue sharply throughout including the posterior cavity and along the iliotibial band. This was then irrigated with one bottle of Surgiphor followed by normal saline. The lateral packing Electronically Signed By: BRENDON SINGH MD 09/06/23 0553 PATIENT NAME: ARIAN FERGUSON OPERATIVE REPORT DATE OF : 75 REPORT #: [id number] PHYSICIAN: BRENDON SINGH MD PCP: NO PRIMARY CARE PHYSICIAN REPORT IS CONFIDENTIAL AND NOT TO BE RELEASED WITHOUT AUTHORIZATION [address] [address] Signed was replaced with one Kerlix, one Kerlix was placed posteriorly. The remainder of the wound was then covered with a wet-to-dry Kerlix dressing, dressed with ABDs and roller gauze. It was then covered with a Coban and Usman wrap. He tolerated the procedure well. All sponge, needle, and instrument counts were correct. Brendon Singh MD BA/COBY /[id number] Copies: ~ Electronically Signed By: BRENDON SINGH MD 09/06/23 0553 PATIENT NAME: ARIAN FERGUSON OPERATIVE REPORT DATE OF : 75 REPORT #: [id number] PHYSICIAN: BRENDON SINGH MD PCP: NO PRIMARY CARE PHYSICIAN REPORT IS CONFIDENTIAL AND NOT TO BE RELEASED WITHOUT AUTHORIZATION
--- NOTE | 2023-09-06 06:20 | NUR ---
NEW SPIKA JESSIKA REPLACED, DUE TO PATIENT UNWRAPPING EARILER. ICE PLACED. PATIENT VOIDED 800ML CLEAR YELLOW URINE.
[2023-09-06] MEDS ORDERED: MAGNESIUM SULFATE 2 GM/50 ML BAG IV ONE (06:30)
--- NOTE | 2023-09-06 08:25 | NUR ---
[place] [facility] [place]. DOES NOT MEET GL DAY 2, VIARIANCE ADDED. [facility] INPT 08/31/23 @ 6646 WILL SEND CLINICAL TO [facility] FOR AUTH REVIEW. DISCHARGE PENDING FURTHER ASSESSMENT 09/08/23
[2023-09-06] MEDS ORDERED: MAGNESIUM SULFATE 50 ML IV ONE (08:55)
--- NOTE | 2023-09-06 09:00 | NUR ---
PATIENT ALERT & ORIENTED X4; TEMP 99.2; 5/10 LEVEL OF PAIN; NURSE MEDICATED WITH TYLENOL & OXYCODONE ORDERED; NURSE STANDBY ASSIST FOR PATIENT FOR HYGIENE CARES - PERICARE, ORAL CARE, BED BATH, PARTIAL LINEN CHANGE ( PER PATIENT's REQUEST); NURSE ADDRESSED PATIENT's NEEDS & CONCERNS. PATIENT RESTING COMFORTABLY IN BED. IV FLUSHED; IV PATENT; INFUSING WELL; NO SIGNS OF PHLEBITIS, NO SIGNS OF INFILTRATION. PERICARE, ORAL CARE, BED BATH, PARTIAL LINEN CHANGE DONE PER PATIENT's REQUEST. NURSE ADDRESS PATIENT'S NEEDS & CONCERNS; PATIENT RESTING COMFORTABLY IN BED.
--- NOTE | 2023-09-06 10:42 | NUR ---
VISITED DURING SPIRITUAL CARE ROUNDS. PT NOT IN ROOM. PROVIDED PRAYER.
--- NOTE | 2023-09-06 10:46 | NUR ---
VISITED DURING SPIRITUAL CARE ROUNDS. PT APPEARED TO BE SLEEPING. DID NOT DISTURB. PROVIDED PRAYER.
--- NOTE | 2023-09-06 14:00 | NUR ---
Pt sleeping not awakened, has blankets over his head. I spoke with [facility] earlier and they are declining this pt. Notified Heather, from [facility] had called with questions. I attempted to return her call and left a message. I will fax OT/PT notes when completed.
--- NOTE | 2023-09-06 14:27 | NUR ---
Chart faxed to Sybil at [facility].
--- NOTE | 2023-09-06 15:00 | NUR ---
REPORT GIVEN TO DANIEL KELLY. PATIENT TRANSFERRING TO M/S. PATIENT ALERT & ORIENTED X4; NO SIGNS OF DISTRESS OR DISCOMFORT NOTED. PATIENT AWARE OF TRANSFER. VITAL SIGNS STABLE. PATIENT TRANSFERRED TO /S VIA BED. PATIENT'S CHART AND BELONGINGS GIVEN TO DANIEL KELLY. EVS NOTIFIED OF ROOM NEEDING TO BE CLEANED; FIELD APPLICATIONS SPECIALIST UPDATED ON PATIENT'S TRANSFER TO /S.
--- NOTE | 2023-09-06 15:08 | NUR ---
PT ARRIVED TO MEDICAL SURGICAL FLOOR AT 1508. VSS, RESPIRATIONS EVEN AND UNLABORED. DRESSING ON RIGHT LEG CLEAN, DRY, INTACT. PT C/O 6/10 PAIN IN RIGHT HIP. CALL LIGHT AND NEEDED BELONGINGS WITHIN REACH.
--- NOTE | 2023-09-06 16:04 | NUR ---
PT SITTING UP IN BED, EYES OPEN. NO S/S OF PAIN/ DISTRESS. RESPIRATIONS EVEN AND UNLABORED. CALL LIGHT AND NEEDED ITEMS WITHIN REACH.
--- NOTE | 2023-09-06 16:26 | NUR ---
DR. GONZALEZ IN TO SEE PATIENT. PATIENT TO BE NPO AFTER MIDNIGHT, RADIOLOGY INTERVENTIONAL PHYSICIAN SURGERY PLANNED FOR WOUND CLOSURE.
--- NOTE | 2023-09-06 16:42 | NUR ---
AUTHORIZATION REP IN VISITING WITH PT ABOUT PLAN OF CARE. PT SITTING UP IN BED.
--- NOTE | 2023-09-06 17:25 | NUR ---
PT SITTING UP IN BED EATING EVENING MEAL. PT ATE 100% OF MEAL. CALL LIGHT WITHIN REACH. NO S/S OF PAIN/ DISTRESS. RESPIRATIONS EVEN/ UNLABORED.
--- NOTE | 2023-09-06 17:41 | NUR ---
PT SITTING UP IN BED WITH EYES CLOSED. WHEN ASKED ABOUT HIS PAIN RATING HE STATES "YOU TELL ME". THIS RN EXPLAINED TO HIM HE IS THE ONE THAT HAS PAIN IF ANY AND ASKED WHAT HE WOULD RATE IT. PT RATED 8/10. WHEN ASKED WHERE THE PAIN IS LOCATED PT STATES: "TAKE YOUR PICK". THIS RN ASKED PT IF HE COULD BE MORE SPECIFIC OF PAIN LOCATION AND PT POINTED TO RIGHT LEG. ENTIRE CONVERSATION HAPPENED WITH PT. EYES CLOSED.
--- NOTE | 2023-09-06 17:59 | NUR ---
PT. COVERING HIS HEAD WITH BLANKET. ASKED PT. WHY HE IS COVERING HIS HEAD AND HE STATES HE FEELS LIKE HE IS IN A FREEZER. APPLIED WARM BLANKET, PT REQUESTED HOT BLACK TEA, THERMOSTAT IN ROOM ADJUSTED. THIS RN TOOK PT TEMPERATURE AND IT IS 98.3 CALL LIGHT AND NEEDED ITEMS WITHIN REACH. PT DENIES ANY OTHER NEEDS AT THIS TIME. RESPIRATIONS EVEN AND UNLABORED.
--- NOTE | 2023-09-06 18:24 | NUR ---
RIGHT KNEE DRESSING CLEAN, DRY, INTACT
--- NOTE | 2023-09-06 19:30 | NUR ---
REPORT RECEIVED FROM DAY SHIFT RN. PATIENT RESTING IN BED. URINAL EMPTIED. DENIES ANY NEEDS AT THIS TIME. CALL LIGHT WITHIN REACH.
[2023-09-06] MEDS ORDERED: CEFEPIME HCL/D5W 1 GM/100 ML PIGGYBACK IV SCH (20:00)
--- NOTE | 2023-09-06 20:30 | NUR ---
IV ABX started, HS medications given. Patient c/o pain 09/23. PRN given see APR. RN noted that patient had ordered Heprin. RN called Ortho surgeon to clarify order. Surgeon okay with patient receiving HS Heprin.
[2023-09-06] MEDS ORDERED: HEParin SOD (PORCINE) 5,000 UNIT/ML SDV SUB-Q SCH (21:00)
--- NOTE | 2023-09-06 22:30 | NUR ---
PATIENT C/O NAUSEA. PRN GIVEN SEE MAR. PATIENT REQUESTING AALIYAH SERVICES. RN NOTIFIED SUPERVISING RN. PATIENT RESTING IN BED WITH NO FURTHER NEEDS AT THIS TIME. CALL LIGHT WITHIN REACH.
--- NOTE | 2023-09-06 22:40 | NUR ---
PUMP ALARMING, PRIMARY RN ALREADY IN ROOM AND EDUCATING pt ON NEED TO KEEP ARM WITH IV STRAIGHT POSSIBLE. THERAPEUTIC COMMUNICATION PROVIDED AND THIS RN WRAPPED IV SITE WITH FOLDED WASHCLOTH AND SECURED WITH COBAN. WHEN EDUCATED pt ON IMPORTANCE OF KEEPING ARM STRAIGHT POSSIBLE, pt STATES IRRITABLY, "WELL HOW YOU SEE IT IS HOW IT'S BEEN". WILL MONITOR, PRIMARY RN UPDATED.
--- NOTE | 2023-09-06 23:00 | NUR ---
AALIYAH SERVICES IN ROOM WITH PATIENT.
--- NOTE | 2023-09-06 23:12 | NUR ---
NO FURTHER ALARMING NOTED FROM IV PUMP, WILL CONTINUE TO MONITOR.
[2023-09-07] VITALS (13 sets, daily range): BP systolic 95–149; BP diastolic 50–92
--- NOTE | 2023-09-07 00:20 | NUR ---
IV ALARMING. ABX INFUSSION COMPLETE. IV SITE FLUSHED WITH 10ML NS. PATIENT RESTING COMFORTABLY IN BED. NO FURTHER NEEDS AT THIS TIME. CALL LIGHT WITHIN REACH.
--- NOTE | 2023-09-07 02:21 | NUR ---
PATIENT RESTING IN BED. 0200 ABX NIDIA. IV SITE PATENT. PATIENT REQUESTING WARM BLANKET. WARM BLANKET GIVEN. NO FURTHER NEEDS AT THIS TIME. CALL LIGHT WITHIN REACH.
--- NOTE | 2023-09-07 04:20 | NUR ---
CALL LIGHT ANSWERED. PATIENT REQUESTING ASSISTANCE WITH URINAL. URINAL SPILLED ON PATIENT. PRE SURGERY WIPE DOWN COMPLETED. BEDDING CHANGED, NEW GOWN PUT ON. VSS. SPOT CHECKED BLOOD SUGAR RESULTS OF 80MG/DL. NO FURTHER NEEDS AT THIS TIME. CALL LIGHT WITHIN REACH.
--- NOTE | 2023-09-07 05:50 | NUR ---
0600 TANYA JACOB. IV SITE PATENT. PATIENT DENIES PAIN AT THIS TIME. DRESSING TO RIGHT KNEE REMAINS CDI. NO FURTHER NEEDS AT THIS TIME. CALL LIGHT WITHIN REACH.
--- NOTE | 2023-09-07 06:07 | NUR ---
DISCUSSED PATIENTS BLOOD SUGAR, NPO STATUS, AM LAB RESULTS WITH HOSPITALIST. NEW ORDERS RECEIVED. SEE MAR.
[2023-09-07] MEDS ORDERED: MAGNESIUM SULFATE 2 GM/50 ML BAG IV ONE (06:15)
[2023-09-07] MEDS ORDERED: DEXTROSE 5% - NACL 0.45% 1,000 ML IV SCH (06:15)
[2023-09-07 06:28] LABS: BASOPHILS 0.7 % (0-2); EOSINOPHILS 0.9 % (0-6); HEMATOCRIT 24.4 % (35.0-50.0); HEMOGLOBIN 8.1 g/dL (12.0-18.0); LYMPHOCYTES 11.1 % (24-44); MCH 27.2 (27-36); MCV 82.4 fl (81-99); MONOCYTES 8.9 % (0-12); NEUTROPHILS 78.4 % (39-80); PLATELET COUNT 660 K/uL (140-440); RBC 2.97 M/ul (4.3-5.7); RDW 14.8 (10.5-15.0)
[2023-09-07 06:31] LABS: ALBUMIN 1.5 g/dL (3.4-5.0); ALBUMIN/GLOBULIN RATIO 0.31 (1.1-2.4); ANION GAP 12.6 (7-21); BILIRUBIN, TOTAL 0.2 ng/dL (0.2-1.0); BUN/CREATININE RATIO 10.11 (6.0-28.6); CALCIUM 7.7 mg/dL (8.5-10.1); CREATININE, SERUM 0.89 mg/dL (0.70-1.30); POTASSIUM 3.6 mmol/L (3.5-5.1); PROTEIN, TOTAL 6.3 g/dL (6.4-8.2)
--- NOTE | 2023-09-07 06:36 | NUR ---
SURGERY RN ON UNIT TO PICK PATIENT.
--- NOTE | 2023-09-07 07:20 | NUR ---
REPORT RECIEVED WITH DANIEL KELLY FROM DANIEL KHOURY. PT OUT OF ROOM IN SURGERY PER DANIEL KHOURY. ROOM EMPTY AT THIS TIME.
--- NOTE | 2023-09-07 07:30 | NUR ---
RPT RECEIVED AT 0715 FROM DANIEL KHOURY. RECEIVEVD IN RPT PT TAKEN TO SURGERY AT 0638. CPOX IN ROOM AT BEDSIDE FOR WHEN PT ARRIVES BACK FROM SURGERY. BOARD IN ROOM UPDATED WITH STAFF FOR THE DAY.
[2023-09-07] MEDS ORDERED: ondansetron HCL 4 MG/2 ML VIAL ONE (07:31)
[2023-09-07] MEDS ORDERED: dexmedeTOMIDine HCl 200 MCG/2 ML VIAL ONE (07:31)
[2023-09-07] MEDS ORDERED: SODIUM CHLORIDE 0.9% 40 ML IV ONE (07:31)
[2023-09-07] MEDS ORDERED: propofoL 200 MG/20 ML VIAL ONE (07:31)
[2023-09-07] MEDS ORDERED: Ropivacaine HCl 0.5% 30 ML VIAL ONE (07:31)
[2023-09-07] MEDS ORDERED: LIDOCAINE HCL 2% 5 ML SDV ONE (07:31)
[2023-09-07] MEDS ORDERED: KETOROLAC TROMETHAMINE 30 MG/ML VIAL ONE (07:31)
[2023-09-07] MEDS ORDERED: fentaNYL citrate 100 MCG/2 ML VIAL ONE (07:38)
[2023-09-07] MEDS ORDERED: ePHEDrine sulfate 50 MG/ML AMP ONE (07:40)
[2023-09-07] MEDS ORDERED: HYDROmorphone HCL 1 MG/ML SYR ONE ×2 (08:30→09:01)
[2023-09-07] MEDS ORDERED: NALOXONE HCL 0.4 MG SYR IV PRN (09:00)
[2023-09-07] MEDS ORDERED: HYDROmorphone HCL 1 MG/ML SYR IV PRN (09:00)
[2023-09-07] MEDS ORDERED: IBLOOD GLUCOSE TEST STRIP 1 EA TEST VI PRN (09:00)
[2023-09-07] MEDS ORDERED: fentaNYL citrate 50 MCG/ML SDV IV PRN (09:00)
--- NOTE | 2023-09-07 09:24 | NUR ---
PT ARRIVES TO ROOM IN BED POST-OP ACCOMPANIED BY KAYLI Kiran RN. BEDSIDE REPORT RECIEVED. VITALS COMPLETE. PT SITTING UP IN BED. PT STATES "CAN I HAVE SOMETHING TO EAT." JELLO PROVIDED. IV FLUIDS STARTED, SEE APR. CPOX PLACED. DRESSING TO R AKA C/D/I. PRN COMPAZINE ADMINISTERED PT REPORTING NAUSEA. PT ALSO CONTINUES TO COMPLAIN OF "BEING HUNGRY." ROIBN RN IN ROOM. NO OTHER NEEDS FROM THIS RN. CALL LIGHT IN REACH. BED ALARM ON.
--- NOTE | 2023-09-07 09:45 | NUR ---
PT BACK FROM SURGERY. DANIEL QUIROZ IN ROOM WITH PT. PT SITTING UP IN BED WITH BACK AGAINST RAIL BUT DOES NOT WANT TO MOVE AND PLACE BACK AGAINST BACK OF BED. PT. C/O NAUSEA BUT STATES HE IS HUNGRY AND WANTS TO EAT JELLO. PT EATS JELLO AND CONTINUES TO C/O NAUSEA. MEDICATION GIVEN. 02 99% ON RA. LUNGS CLEAR. BANDAGE ON RIGHT LEG CLEAN, DRY AND INTACT. ASSESSMENT COMPLETED. CALL LIGHT WITHIN REACH.
--- NOTE | 2023-09-07 10:02 | NUR ---
VISITED DURING SPIRITUAL CARE ROUNDS. PT RECEIVING NURSING CARE. DID NOT INTERRUPT. PROVIDED PRAYER.
--- NOTE | 2023-09-07 10:34 | NUR ---
VSS, PT REPOSITIONED IN BED WITH BACK AGAINST BACK OF BED. R LEG SURGERY SITE CLEAN, DRY, INTACT. RESPIRATIONS EVEN AND UNLABORED. NO S/S OF PAIN/ DISTRESS. WITHIN MINUTES OF REPOSITINING PT LAID HEAD BACK, CLOSED EYES, SNORING. CPOX READING 98% ON ROOM AIR. CALL LIGHT AND NEEDED BELONGINGS WITHIN REACH. BED ALARM ON FOR PT SAFEY.
--- NOTE | 2023-09-07 10:46 | NUR ---
RE-EVALUATING PAIN. PT. STATES 5/10 ON TOP OF UPPER RIGHT THIGH. PT. LAYING IN BED, EYES CLOSED, SLIGHTLY SNORING. NO S/S OF PAIN/ DISTRESS. RESPIRATIONS EVEN AND UNLABORED. CPOX 99% ON ROOM AIR. CALL LIGHT AND NEEDED ITEMS WITHIN REACH.
--- NOTE | 2023-09-07 10:48 | NUR ---
09/07/23 1048 Viviana Bennett 0825 PT ARRIVED IN PACU SLEEPY. 0830 AWAKE AND C/O 10/10 PAIN IN TOP ON R THIGH. 0833 DILAUDID 1MG GIVEN IV BY ANESTHESIA. 0835 BLOOD SUGAR 109. NO NEW ORDERS. 0840 RESTING. REU. 0850 AWAKE AND C/O 10/10 PAIN IN R THIGH AND ASKING FOR COFFEE. COFFEE GIVEN. 0900 OXYCODONE 10MG PO GIVEN. 0904 NO CHANGE IN PAIN LEVEL. DILAUDID 0.5MG GIVEN IVP. 0910 CONTINUES TO CRY OUT IN PAIN. DILAUDID 0.5MG GIVEN IVP. ANESTHESIA AT BEDSIDE. NO NEW ORDERS. 0915 PT LEANING ON BEDSIDE TABLE RELAXED AND SIPPING ON COFFEE. WHEN ASKED ABOUT PAIN, SAYS ITS WORST PAIN EVER. 0930 TO ROOM 120. BED PLUGGED AND REPORT GIVEN TO RN.
--- NOTE | 2023-09-07 10:50 | NUR ---
PT ASKING TO TAKE GOWN OFF. PT DIAPHORETIC. TEMP 97.3. ROOM FEELS WARM, THERMOSTAT ADJUSTED. PT STATES HE FEELS FINE. NO NAUSEA. RESPIRATIONS EVEN AND UNLABORED. NO S/S OF PAIN. CALL LIGHT AND NEEDED BELONGINGS WITHIN REACH.
--- NOTE | 2023-09-07 11:03 | NUR ---
PT STATING HE DIDN'T FEEL GOOD TO OTHER STAFF AND THOUGHT IT WAS HIS BLOOD SUGAR. JUICE GIVEN TO PT. BG 165, BP 95/61.
--- NOTE | 2023-09-07 11:45 | NUR ---
THREE CARDS (POSSIBLY DEBIT/ CREDIT CARDS) ON BEDSIDE TABLE. LOCKED INTO LOCK BOX IN ROOM. DISCUSSED WITH PT HAVING IN THE LOCKBOX WOULD BE BEST RATHER THAN SITTING OUT ON THE TABLE.
--- NOTE | 2023-09-07 12:30 | NUR ---
PT SITTING UP IN BED EATING LUNCH TRAY. PT STATES HE FEELS A LITTLE NAUSEATED WHEN ASKED BUT SAID HE IS ALWAYS NAUSEATED. NO S/S OF DISTRESS. O2 99% ON ROOM AIR. SURGICAL SITE ON RIGHT LEG CLEAN, DRY, INTACT. CALL LIGHT AND NEEDED BELONINGS WITHIN REACH.
--- NOTE | 2023-09-07 13:03 | NUR ---
RECEIVED REPORT FROM DANIEL QUIROZ. ASSUMING CARE OF PT WITH DANIEL KELLY.
--- NOTE | 2023-09-07 13:30 | NUR ---
Spoke with pt. He is sitting in bed, tired, not answering questions. Updated his chart was sent to [facility] today for further review.
--- NOTE | 2023-09-07 13:50 | NUR ---
IN IV PUMP ALARMING, RESOLVED. PT SITTING UP IN BED AND RESPONDS WHEN ADDRESSED. PT REPORTING PAIN 7/10 TO RIGHT AKA. 1353 PRN PAIN MEDICATION ADMINISTRED, SEE MAR. IV ABX STARTED, SEE MAR. PT REPORTING NAUSEA, PRN NAUSEA MEDICATION ADMINISTERED, SEE MAR. PT DENIES ANY OTHER NEEDS FROM THIS RN. DANIEL JAMA IN ROOM. CALL LIGHT IN REACH. BED ALARM ON.
--- NOTE | 2023-09-07 13:55 | NUR ---
PT STATES HE WOULD LIKE TO TRY CRACKERS AT THIS TIME, GIVEN. PT INSTRUCTED TO EAT SLOWLY D/T NAUSEA. PT VERBALIZES UNDERSTANDING. EDUCATION ON ADVANCING DIET, PT VERBALIZES UNDERSTANDING. PT STATES NO FURTHER NEEDS AT THIS TIME, CALL LIGHT WITHIN REACH.
--- NOTE | 2023-09-07 14:39 | NUR ---
PT STATES NO INCREASE IN NAUSEA AFTER EATING CRACKERS, STATES NO FURTHER NEEDS AT THIS TIME, CALL LIGHT WITHIN REACH.
--- NOTE | 2023-09-07 15:09 | NUR ---
Spoke with Heather from [facility]. She would like brother's phone number to confirm dc plan. She also wanted to know if pt will be on IV antibiotics. She states if pt has a good dc plan from [facility], they will most likely take him on Tuesday. I will contact his mom for the brothers number and contact Dr. Littlejohn about antibiotics.
--- NOTE | 2023-09-07 15:37 | NUR ---
PT RESTING IN BED. EYES CLOSED. RESPIRATIONS EVEN AND UNLABORED. 02 99% ON RA. NO S/S OF PAIN/ DISTRESS. CALL LIGHT WITHIN REACH.
--- NOTE | 2023-09-07 16:14 | NUR ---
IN IV PUMP ALARMING, RESOLVED. PT RESTING IN BED SEMI-FOWLERS. EYES CLOSED, RR EVEN AND UNLABORED. URINAL EMPTIED. NO OTHER NEEDS IDENTIFIED AT THIS TIME. CALL LIGHT IN REACH. BED ALARM ON.
--- NOTE | 2023-09-07 17:05 | NUR ---
PT. LAYING IN BED WITH BLANKET OVER HIS HEAD. PT STATES 8/10 PAIN IN RIGHT LEG, SHOULDERS AND BACK. 5MG. OXYCODONE ADMINISTERED. SEE MAR. RESPIRATIONS EVEN AND UNLABORED. 02 99% ON ROOM AIR. SURGICAL SITE ON RIGHT LEG CLEAN, DRY AND INTACT. CALL LIGHT WITHIN REACH.
--- NOTE | 2023-09-07 18:20 | NUR ---
IV PUMP ALARMING, THIS RN TO BEDSIDE, RESOLVED. PT STATES HE IS COLD, REQUESTS TEMPERATURE TURNED UP AND WARM BLANKET, GIVEN. PT STATES NO FURTHER NEEDS AT THIS TIME, CALL LIGHT WITHIN REACH.
--- NOTE | 2023-09-07 18:45 | NUR ---
THIS RN CALLS DR. PONCE REGARDING PT TEMP OF 99.3 AND WV OF 135 WELL PT REPORT OF FEELING COLD THIS EVENING. STATES TO ORDER STAT CBC AND ORDER CBC AND CMP FOR 0600 ON 09/08/23. ORDERS ENTERED, REPEAT BACK PERFORMED.
[2023-09-07 19:03] LABS: BASOPHILS 0.3 % (0-2); EOSINOPHILS 0.6 % (0-6); HEMATOCRIT 25.5 % (35.0-50.0); HEMOGLOBIN 8.5 g/dL (12.0-18.0); LYMPHOCYTES 10.2 % (24-44); MCH 27.7 (27-36); MCHC 33.2 g/dl (30-36); MCV 83.3 fl (81-99); MONOCYTES 7.3 % (0-12); NEUTROPHILS 81.6 % (39-80); PLATELET COUNT 717 K/uL (140-440); RBC 3.07 M/ul (4.3-5.7); RDW 15.1 (10.5-15.0)
--- NOTE | 2023-09-07 19:15 | NUR ---
REPORT RECEIVED FROM ROBIN SANCHEZ. pt RESTING IN THE BED. BOARD UPDATED. pt C/0 11/23 PAIN. PLAN MADE FOR PRN PAIN MEDICATION. CALL LIGHT WITHIN REACH.
--- NOTE | 2023-09-07 20:04 | NUR ---
MD PONCE CALLED, pt HR IN 140'S. TEMP 101.0. NEW ORDER PROVIDED AND VERIFIED WITH REPEAT BACK METHOD. IVF DC'D. PO ANTIBIOTIC DC'D. IV ABX ORDERED. PRN TYLENOL ADMINISTERED AND PRN OXYCODONE ADMINISTERED FOR PAIN OF 10/10. BG CHECKED WITH A RESULTS OF 85. ORANGE JUICE PROVIDED. pt DENIES ANY OTHER NEEDS AT THIS TIME. CALL LIGHT WITHIN REACH.
[2023-09-07] MEDS ORDERED: FLUCONAZOLE/SOD CHLORIDE 100 ML IV SCH (20:15)
[2023-09-07] MEDS ORDERED: CEFEPIME HCL/D5W 1 GM/100 ML PIGGYBACK IV SCH (20:30)
--- NOTE | 2023-09-07 20:53 | NUR ---
housesmith aware of new order for diflucan-automatic machines supervisor to prepare and bring to floor.
--- NOTE | 2023-09-07 21:00 | NUR ---
ASSESSMENT AND VITAL SIGNS DONE. BG CHECKED WITH RESULTS OF 97 NO SS INSULIN NEEDED. NO LONG ACTING INSULIN AT THIS TIME. pt DENIES ANY PAIN AT THIS TIME. IV ABX INFUSING AT THIS TIME. CALL LIGHT WITHIN REACH. CHUX CHANGED UNDER pt DUE TO URINAL SPILLING. JESSIKA WRAP STILL IN PLACE. NO OTHER NEEDS AT THIS TIME.
--- NOTE | 2023-09-07 22:32 | NUR ---
HOUSING ASSISTANT CHECKED PT BLOOD SUGAR. BLOOD SUGAR WAS 98. RN NOTIFED. PT STATES NO FURTHER NEEDS AT THIS TIME. CALL LIGHT WITHIN REACH.
--- NOTE | 2023-09-07 23:00 | NUR ---
PUMP ALARMING, ISSUE RESOLVED AND IV ABX INFUSING DIRECTED. pt VERBALIZES INTEREST IN WANTING TO SPEAK WITH THE SENIOR RESEARCH ASSOCIATE, STATING, "IT DOESN'T HAVE TO BE TONIGHT, SOMETIME TOMORROW IS FINE. I'D LIKE TO SPEAK WITH THE JANIYA WHO WAS HERE BEFORE, I REALLY LIKED HIM AND WHAT HE SAID. WE HAD A REALLY NICE PRAYER". pt REFERRING TO PASTOR MCMULLEN (THIS RN WAS CHARGE WHEN PASTOR MCMULLEN VISITED pt LAST TIME). PRIMARY RN JANA MADE AWARE, CALL LIGHT IN REACH.
[2023-09-08] VITALS (12 sets, daily range): BP systolic 110–139; BP diastolic 71–96
--- NOTE | 2023-09-08 00:10 | NUR ---
pt C/0 07/24 PAIN. PRN PAIN MEDICATION ADMINISTERED. pt DENIES ANY OTHER NEEDS AT THIS TIME. pt EDUCATED ABOUT THE IMPORTANCE OF CONTROLING HIS PAIN RATHER THAN CHASING HIS. pt WAS THANKFUL AND REALLY WANTED TO STAY ON TOP OF IT AND LIKE TO BE EDUCATED. pt DENIES ANY OTHER NEEDS AT THIS TIME. CALL LIGHT WITHIN REACH.
--- NOTE | 2023-09-08 03:50 | NUR ---
pt RESTING IN THE BED WITH EYES CLOSED. RR EVEN AND UNLABORED. CALL LIGHT WITHIN REACH.
--- NOTE | 2023-09-08 05:21 | NUR ---
pt RESTED MOST OF THE NIGHT. pt ABLE TO TAKE ORAL MEDICATIONS WITH WATER. FLUIDS DC'D. IV ABX RESTARTED. pt EDUCATED ABOUT PAIN CONTROL. pt RECEPTIVE TO EDUCATION.
[2023-09-08 05:33] LABS: BASOPHILS 0.5 % (0-2); EOSINOPHILS 0.7 % (0-6); HEMATOCRIT 21.5 % (35.0-50.0); HEMOGLOBIN 7.1 g/dL (12.0-18.0); LYMPHOCYTES 14.2 % (24-44); MCH 27.3 (27-36); MCV 82.7 fl (81-99); MONOCYTES 8.5 % (0-12); NEUTROPHILS 76.1 % (39-80); PLATELET COUNT 659 K/uL (140-440); RDW 14.7 (10.5-15.0)
[2023-09-08 05:47] LABS: ALBUMIN 1.3 g/dL (3.4-5.0); ALBUMIN/GLOBULIN RATIO 0.3 (1.1-2.4); ANION GAP 9.9 (7-21); BILIRUBIN, TOTAL 0.2 ng/dL (0.2-1.0); BUN/CREATININE RATIO 6.52 (6.0-28.6); CALCIUM 7.2 mg/dL (8.5-10.1); CREATININE, SERUM 0.92 mg/dL (0.70-1.30); POTASSIUM 3.9 mmol/L (3.5-5.1); PROTEIN, TOTAL 5.7 g/dL (6.4-8.2)
--- NOTE | 2023-09-08 07:20 | NUR ---
REPORT RECIEVED FROM DANIEL ALAS. PT SITTING UP IN BED AND RESPONDS WHEN ADDRESSED. PT DENIES ANY NEEDS AT THIS TIME. CALL LIGHT IN REACH. BED ALARM ON.
[2023-09-08] MEDS ORDERED: metroNIDAZOLE 250 MG TAB PO SCH (08:00)
[2023-09-08] MEDS ORDERED: AMOXICILLIN/CLAVULANATE K 875 MG TAB PO SCH (08:00)
--- NOTE | 2023-09-08 09:10 | NUR ---
Spoke with Sal. He denies c/o. Updated I am cont. to attempt to place him at [facility]. They are attempting to contact family to confirm he has a safe dc when he leaves there. I tried to call pts mom this am to discuss and did not receive and answer.
--- NOTE | 2023-09-08 09:33 | NUR ---
IN TO ADMINSITER MEDICATION, SEE MAR. PT SITTING UP IN BED ON BED TELLO. CJ GREENBERG IN ROOM ASSISTING PT. PT REPORTING PAIN 6/10 TO RIGHT LEG. PRN PAIN MEDICATION ADMINISTERED, SEE MAR. PT TAKES PO MEDICAITON WITH NO ISSUES. ASSESSMENT COMPLETE. LUNG SOUNDS CLEAR. BOWEL TONES ACTIVE. ABD SOFT WITH PALPATION. PT REPORTS ABD TENDERNESS WITH ABD PALPATION. DRESSING TO PTs RIGHT AKA C/D/I. RIGHT EXTREMITY ELEVATED ON PILLOW. PT DENIES ICE PACK WHEN OFFERED. PT REPORTS CHRONIC NUMBNESS/TINGLING IN BILATERAL LOWER EXTREMITIES. SCAB NOTED TO LEFT KNEE. SCAR NOTED TO PTs RIGHT HIP. ERIC PADS IN BED NOTED TO BE SOILD WITH URINE. MARGARITA CARE PROVIDED AND NEW ERIC PADS PLACED. PT REQUESTING ORAL CARE, PROVIDED. PT BRUSHES OWN TEETH. PT BOOSTED IN BED. PT DENIES ANY OTHER NEEDS AT THIS TIME. CALL LIGHT IN REACH. BED ALARM ON.
--- NOTE | 2023-09-08 10:34 | NUR ---
"ART" ENDORSES CONTINUED R AKA PAIN 6/10. PAIN GOAL 4/10 PER PATIENT. ADDITIONAL DOSE OF OXUCODONE 5MG PO GIVEN. WILL REASSESS AT APPROPRIATE TIME. BLACK TEA OFFERED AND ACCEPTED
--- NOTE | 2023-09-08 11:11 | NUR ---
VISITED DURING SPIRITUAL CARE ROUNDS. PT WORKING WITH PHYSICAL THERAPY. DID NOT INTERRUPT. PROVIDED PRAYER.
--- NOTE | 2023-09-08 11:19 | NUR ---
IN PHYSICAL THERAPY AND OT IN ROOM AND PT REPORTING "FEELING LIKE BLOOD SUGAR IS LOW." PRN CHECK OF BLOOD SUGAR SHOWING BLOOD SUGAR AT 60MG/DL. ORANGE JUICE PROVIDED. IV INFUSING WNL. PT DENIES ANY OTHER NEEDS AT THIS TIME. CALL LIGHT IN REACH. BED ALARM ON.
--- NOTE | 2023-09-08 11:40 | NUR ---
IN WITH CJ GREENBERG TO RECHECK BLOOD SUGAR. BLOOD SUGAR AT 66. ORANGE JUICE PROVIDED. PT REPORST FEELING "DIZZY." PT SITTING UP IN BED AND RESPONDS WHEN ADDRESSED A&O TO ALL. PT DRINKS ORANGE JUICE WITH NO ISSUES. BP OF 118/82 MAP OF 89 HR OF 107 AND O2 SATS 99% ON RA WITH RR OF 16.
--- NOTE | 2023-09-08 11:55 | NUR ---
IN WITH CJ GREENBERG AND CJ ARGUETA AND DANIEL HERNANDEZ. BLOOD SUGAR CHECKED AND NOTED TO BE 71. PT A&O TO ALL. ORANGE JUICE PROVIDED. PT SITTING UP IN BED. PT DENIES ANY OTHER NEEDS AT THIS TIME. CALL LIGHT IN REACH. BED ALARM ON.
--- NOTE | 2023-09-08 12:00 | NUR ---
Mom in room stopped and spoke with Sal and mom. Discussed possible placement to [facility]. They will not accept him without a safe discharge plan. I asked if he would agree to sign Medicaid forms for custodial care and he declines. He is again stating he wants to go back to [place]. I cannot place him in [place] without funds for a HALF-WAY or AFC. All SNFs have declined him. He would consider returning to [facility] on dc from [place]. I called and spoke with Heather. She states this could be an safe dc as he would be returning. I called and [facility] and she states his application is good through October 27. If he dc before then, they could call and he could return if there is a bed open. He is considered a priority, so would be picked first by his rating. I called and left a message for Heather with an update at 14:30.
--- NOTE | 2023-09-08 13:59 | NUR ---
BOWEL MOVEMENT X1 IN BEDPAN, ART REPORTED NAUSEA AND PAIN 5/10. COMPLETE LINEN AND GOWN CHANGE. ONDANSETRON IV GIVEN. HICCUPS NOTED. VSS PER MONITOR NOTED BELOW. MOTHER AT BEDSIDE. SAFETY CHECK OF ROOM PERFORMED. NO OTHER NEEDS IDENTIFIED AT THIS TIME HR 112 SPO2 98/ RA 137/94 (103) TEMP 98.9 ORAL RR 16
--- NOTE | 2023-09-08 14:00 | NUR ---
IN WITH DANIEL HERNANDEZ. PT NOTED TO HAVE INCONTINENCE OF STOOL AND URINE. LINENS IN BED CHANGED. MARGARITA-CARE PROVIDED. MEDICATIONS ADMINISTERED, SEE MAR. PT REPORTING NAUSEA, PRN ZOFRAN ADMINISTERED, SEE MAR. ASSESSMENT COMPLETE. DRESSING TO R AKA C/D/I. PT REPORTING PAIN 06/23 PT STATES "I DO NOT WANT ANYTHING FOR PAIN" WHEN OFFERED. OFFERED PRN TYLENOL AND PT THEN STATES "OH, YEAH THAT WOULD WORK." PRN TYLENOL ADMINISTERED, SEE MAR. PT REFUSES ICE PACK WHEN OFFERED. PT DENIES ANY OTHER NEEDS FROM THIS RN. CALL LIGHT IN REACH. BED ALARM ON. PTs MOTHER IN ROOM.
--- NOTE | 2023-09-08 14:52 | NUR ---
IN WITH DANIEL ADORNO. BED TELLO REMOVED. BM NOTED. ERIC PAD NOTED TO BE SOILED WITH URINE. MARGARITA-CARE PROVIDED. NEW ERIC PAD AND SLIDE SHEET PLACED. NEW GOWN PROVIDED GOWN NOTED TO BE SOILED WITH URINE. DRESSING TO R AKA REMAINS C/D/I. IV CONTINUES TO INFUSE WNL. PT DENIES ANY OTHER NEEDS AT THIS TIME. CALL LIGHT IN REACH. BED ALARM ON.
--- NOTE | 2023-09-08 15:08 | NUR ---
Update from Raya from PT. Pt was able to use the sliderboard and did fair. Pt did not feel well. I received two calls from Nurses asking I return stanley to room to speak with mom. Returned to the room and she is speaking with Lawanda from [place]. She works at the [employer] [facility]. She feels they could take this pt when he leaves rehab. We discussed he is on [place] Medicaid. He would need to switch to [place]. She states this is not difficult to do. She requests his chart. Chart faxed with face sheet, H&P consult, progress notes, surgery notes, labs, medication list.
--- NOTE | 2023-09-08 15:11 | NUR ---
Mother concerned about transport. Reminded mom pt has OHP and free transport through [facility]. If he is accepted for Tuesday to , we can schedule tomorrow with a wc van for transport.
--- NOTE | 2023-09-08 15:35 | NUR ---
ART IS RESTING WITH EYES CLOSED. HE DENIES ANY NEEDS AT THIS TIME
--- NOTE | 2023-09-08 16:03 | NUR ---
IN TO ROUND ON PT. PT LAYING IN BED AND STATES "MY STOMACH IS FEELING A LITTLE BETTER, COULD I GET SOME CRACKERS. OR SOME CHICKEN BROTH?" CRACKERS AND CHICKEN BROTH PROVIDED. PT SITS UP IN BED TO EAT. PT DENIES ANY OTHER NEEDS AT THIS TIME. CALL LIGHT IN REACH. BED ALARM ON. PTs MOTHER IN ROOM.
--- NOTE | 2023-09-08 16:35 | NUR ---
PATIENT HAD SOME NAUSEA TODAY WITH ONLY BITES OF BREAKFAST EATEN. HE WAS EATING WELL A FEW DAYS AGO. [facility] NURSING DIRECTOR WAS GOING TO ASK PATIENT FOR MENU CHANGES FOR LUNCH AND DINNER. OTHERWISE, 60 GM CONS CARB DIET REMAINS APPROPRIATE. ENSURE MAX PROTEIN CAN BE PROVIDED IF PO INTAKE DOES NOT IMPROVE. RD WILL FOLLOW UP IN 5 DAYS.
--- NOTE | 2023-09-08 16:37 | NUR ---
IN TO ANSWER CALL LIGHT. PT REQUESTING TOILETING NEEDS. BED TELLO PLACED. PT REQUESTING PRIVACY. CALL LIGHT IN REACH. NO OTHER NEEDS AT THIS TIME.
--- NOTE | 2023-09-08 16:43 | NUR ---
IN TO ANSWER CALL LIGHT PT REPORTING BEING DONE WITH BED TELLO. BED TELLO REMOVED, MARGARITA-CARE PROVIDED. BM NOTED, SOFT. NEW ATTENDS IN PLACE. URINAL EMPTIED. PT DENIES ANY OTHER NEEDS AT THIS TIME. CALL LIGHT IN REACH. BED ALARM ON.
--- NOTE | 2023-09-08 16:55 | NUR ---
IN TO OBTAIN BG. BG OF 115 NOTED. PT DENIES ANY OTHER NEEDS AT THIS TIME. IV INFUSING WNL. CALL LIGHT IN REACH. BED ALARM ON.
--- NOTE | 2023-09-08 18:05 | NUR ---
PERSISTENT HICCUPS NOTED. ART STATES THAT HE HAS NOT "SLEPT IN DAYS" DUE TO THE HICCUPS HE HAS BEEN EXPERIENCING DAILY. PRN THORAZINE IV ADMINISTERED.
--- NOTE | 2023-09-08 19:10 | NUR ---
REPORT RECEIVED FROM DAY RN. PATIENT RESTING IN BED WITH EYES CLOSED. DRESSING CDI. IV ABX INFUSING WITH NO ISSUES. CALL LIGHT WITHIN REACH.
--- NOTE | 2023-09-08 19:35 | NUR ---
CPOX ALARMING. PATIENT RESTLESS IN BED. REQUESTING NEED FOR ASSISTANCE WITH URINAL AND BED TELLO. ASSISTED PATIENT ON TO BED TELLO, AND WITH USE OF URINAL. VOIDINGING WELL WITH NO ISSUES, MEDIUM SOFT BM NOTED. PATIENT TOLLERATED ROLLING IN BED WELL. DENIES ANY NEED FOR PAIN MEDICATIONS AT THIS TIME. PATIENT REPOSITIONED IN BED. IV ABX COMPLETED, IV SITE SALINE LOCKED. NO FURTHER NEEDS AT THIS TIME. CALL LIGHT WITHIN REACH.
--- NOTE | 2023-09-08 20:09 | NUR ---
PATIENT RESTING IN BED WITH EYES CLOSED. RESPIRATIONS EVEN AND UNLABORED. IV SITE PATENT, SCHEDULED IV ABX STARTED. NO FURTHER NEEDS AT THIS TIME. CALL LIGHT WITHIN REACH.
--- NOTE | 2023-09-08 21:50 | NUR ---
CALL LIGHT ANSWERED. PATIENT STATES "I THINK I SPILLED MY URINAL SOMEWHERE". THIS RN TO ROOM. PATIENT BED COVERED IN URINE. NEW LINENS, ERIC, BREIF, AND GOWN PLACED AFTER MARGARITA CARE PROVIDED. BED BATH PROVIDED. BED ALARM ON FOR SAFETY. PATIENT DENIES FURTHER NEEDS. 2 WARM BLANKETS PROVIDED. CALL LIGHT IN REACH.
--- NOTE | 2023-09-08 22:05 | NUR ---
HS MEDICATIONS GIVEN. BLOOD SUGAR 84 MG/DL. HS SNACK GIVEN. DRESSING TO RIGHT LOWER EXTERMITY REMAINS CDI. RLE ELEVATED ON PILLOW FOR COMFORT. LUNGS CTA, BOWEL TONES ACTIVE X 4 QUADRANTS. PATIENT C/O PAIN 09/23. PRN GIVEN. VSS. NO FURTHER NEEDS AT THIS TIME. CALL LIGHT WITHIN REACH.
--- NOTE | 2023-09-08 22:27 | NUR ---
RN NOTIFIED DR. PONCE VIA PHONE ABOUT HS BLOOD SUGAR. WOULD LIKE KONSTANTIN HELD THIS SHIFT DUE TO RECENT BLOOD SUGARS.
[2023-09-09] VITALS (7 sets, daily range): BP systolic 97–136; BP diastolic 70–85
--- NOTE | 2023-09-09 00:01 | NUR ---
IV PUMP ALARMING. DISTAL OCCLUSION. IV SITE WNL. PATIENT ARM REPOSITIONED. ABX INFUSING WITH NO ISSUES AT THIS TIME. PATIENT WITH NO NEEDS AT THIS TIME. CALL LIGHT WITHIN REACH.
--- NOTE | 2023-09-09 00:18 | NUR ---
CALL LIGHT ANSWERED. PATIENT ASSISTED WITH URINAL. VOIDING QUANITY SUFFICIENT. REQUESTED NARDA. DIET NARDA GIVEN. PATIENT WITH NO FURTHER NEEDS AT THIS TIME. CALL LIGHT WITHIN REACH.
--- NOTE | 2023-09-09 00:53 | NUR ---
IV PUMP ALARMING. ABX INFUSSION COMPLETED. IV SITE SALINE LOCKED. C/O PAIN. PRN GIVEN SEE MAR. NO FURTHER NEEDS AT THIS TIME. CALL LIGHT WITHIN REACH.
--- NOTE | 2023-09-09 02:28 | NUR ---
CALL LIGHT ANSWERED. PATIENT C/O PAIN. PRN GIVEN. IV ABX HUNG. NO FURTHER NEEDS AT THIS TIME. CALL LIGHT WITHIN REACH.
--- NOTE | 2023-09-09 04:00 | NUR ---
PATIENT RESTING IN BED WITH EYES CLOSED. RESPIRATRIONS EVEN AND UNLABORED. CPOX READINGS WNL. HR 84 AT THIS TIME. IV ABX INFUSING WITH NO ISSUES OR CONCERNS. CALL LIGHT WITHIN REACH.
--- NOTE | 2023-09-09 04:32 | OR ---
[facility] [address], [place] [address] Signed DATE OF OPERATION: 09/07/2023 SURGEON: Brendon Singh MD PREOPERATIVE DIAGNOSIS: Infection, right lower extremity, status post guillotine above-knee amputation. POSTOPERATIVE DIAGNOSIS: Infection, right lower extremity, status post guillotine above-knee amputation. PROCEDURES PERFORMED: 1. Irrigation and debridement skin, subcutaneous tissue, and bone, over depression. 2. Delayed primary closure, right lower extremity. MANAGER GRAPHIC: None. ANESTHESIA: General. BLOOD LOSS: Minimal. BRIEF HISTORY: Arian is a 48-year-old gentleman who underwent a guillotine amputation for sepsis and substantial infection of the right lower extremity. He had a washout on Tuesday and the tissue looked clear. His laboratory values have normalized. He was felt to be stable for washout and closure today. Risks, benefits, and alternatives were discussed with him at length. He understood and wished to proceed. DESCRIPTION OF PROCEDURE: Once consent was obtained, he was taken to the operating room. After adequate anesthesia, he was placed on the operating room table. All downside pressure points were well padded. The prior dressing was removed and the tissue was inspected. The muscle was in good shape as were the skin margins. There was no drainage of any significant fluid. The two pieces of packing one lateral, one posterior were removed. The leg was then prepped and draped in a standard sterile fashion. The skin margins were then freshened up with a pair of scissors and the necrotic tissue was removed. The entire wound was then irrigated with one bottle of Surgiflo followed by a liter of normal saline. A pulse knife edger was used to irrigate the area just superficial to the Electronically Signed By: BRENDON SINGH MD 09/09/23 0432 PATIENT NAME: ARIAN FERGUSON OPERATIVE REPORT DATE OF : 75 REPORT #: [id number] PHYSICIAN: BRENDON SINGH MD PCP: NO PRIMARY CARE PHYSICIAN REPORT IS CONFIDENTIAL AND NOT TO BE RELEASED WITHOUT AUTHORIZATION [facility] [address], [place] [address] Signed IT band. The bleeders were cauterized as we went. The bone was then shortened by 2 inches and beveled anteriorly. The muscle was then closed anterior to posterior using #1 Vicryl. The fascia was then closed using 2-0 Monocryl and #1 Stratafix. The skin was then closed using interrupted 2-0 nylon. The wound was closed quite nicely. The wound was then dressed with Allevyn, ABDs and an Usman wrap. He tolerated the procedure well. All sponge, needle, and instrument counts were correct. Brendon Singh MD BA/VERAL /[id number] Copies: ~ Electronically Signed By: BRENDNO SINGH MD 09/09/23 0432 PATIENT NAME: ARIAN FERGUSON OPERATIVE REPORT DATE OF : 75 REPORT #: [id number] PHYSICIAN: BRENDON SINGH MD PCP: NO PRIMARY CARE PHYSICIAN REPORT IS CONFIDENTIAL AND NOT TO BE RELEASED WITHOUT AUTHORIZATION
--- NOTE | 2023-09-09 05:15 | NUR ---
CALL LIGHT ANSWERED. PATIENT REQUESTING ASSISTANCE WITH URINAL USE. RN ASSISTED PATIENT USING THE URINAL. VOID QUANITY SUFFICIENT. VSS. DRESSING TO RLE REMAINS CDI. CPOX READINGS WITH HEART RATE OF 109. DENIES ANY CHEST PAIN OR SOB. PATIENT REQUESTING WARM BLANKETS AND HOT TEA. BOTH ITEMS GIVEN. NO FURTHER NEEDS AT THIS TIME. CALL LIGHT WITHIN REACH.
[2023-09-09 06:38] LABS: HEMOGLOBIN 7.4 g/dL (12.0-18.0); MONOCYTES 7.9 % (0-12)
[2023-09-09 06:40] LABS: EOSINOPHILS 1.6 % (0-6); HEMATOCRIT 22.5 % (35.0-50.0); LYMPHOCYTES 19.8 % (24-44); MCH 27.5 (27-36); MCHC 32.9 g/dl (30-36); MCV 83.6 fl (81-99); NEUTROPHILS 69.7 % (39-80); PLATELET COUNT 728 K/uL (140-440); RBC 2.69 M/ul (4.3-5.7); RDW 15.1 (10.5-15.0)
[2023-09-09 06:55] LABS: ALBUMIN 1.4 g/dL (3.4-5.0); ALBUMIN/GLOBULIN RATIO 0.29 (1.1-2.4); ANION GAP 12.3 (7-21); BILIRUBIN, TOTAL 0.2 ng/dL (0.2-1.0); BUN/CREATININE RATIO 10.63 (6.0-28.6); CALCIUM 7.7 mg/dL (8.5-10.1); CREATININE, SERUM 0.94 mg/dL (0.70-1.30); POTASSIUM 4.3 mmol/L (3.5-5.1); PROTEIN, TOTAL 6.3 g/dL (6.4-8.2)
--- NOTE | 2023-09-09 07:57 | NUR ---
SBAR REPORT RECEIVED FROM DANIEL KHOURY. ALL EVENTS OF THE PREVIOUS SHIFT WERE DISCUSSED AND PLAN OF CARE REVIEWED. ART IS NOTED TO BE RESTING IN BED . PRESSURE/PAIN ENDORSED IN LOWER ABDOMEN 06/23. HE STATES THAT THIS IS THE SAME PAIN HE HAS FELT FOR ALMOST A YEAR. CBG 100. NO INSULIN COVERAGE NEEDED AT THIS TIME. AM MEDICATIONS WILL BE GIVEN AT APPROPRIATE TIME. COFFEE AND WARM BLANKETS PROVIDED
--- NOTE | 2023-09-09 08:53 | NUR ---
NEURO- ALERT AND ORIENTED X 4, POSITIVE OUTLOOK ON FUTURE, LOOKING FORWARD TO D/C, ABLE TO ENDORSE 5/10 PRESSURE/ PAIN IN ABDOMEN, POOR VISION, ENDORSES POOR SLEEP "FOR DAYS", REQUIRES AND DESIRES MINIMAL HELP FOR REPOSITIONING CARDIAC- HR 99, NO EDEMA, TEMP 98.7, PALPABLE RADIAL AND POST TIBIAL PULSES, CAP REFILL LESS THAN 3SECONDS RESP- 98% ON ROOM AIR, CLEAR BREATH SOUNDS AUSCULTATED THROUGHOUT, ABLE TO COUGH AND DEEP BREATH TO CLEAR AIRWAY GI/- 60G CARB DIET, POOR APPETITE FOR BREAKFAST, SEE ABOVE NOTES FOR ABDOMINAL DISCOMFORT, NORMOACTIVE BOWEL TONES X 4, PERSISTENT DIARRHEA AND HICCUPS, VOIDS IN URINAL INT- SEE ASSESSMENT LFA PIV ULTRASOUND GUIDED, FLUSHES WELL UNABLE TO ASPIRATE
--- NOTE | 2023-09-09 09:34 | NUR ---
ART WAS TRANSFERRED TO CHAIR WITH SLIDE BOARD WITH OCCUPATIONAL THERAPIST, MAYA. HE WAS PROVIDED A WARM BLANKET AND IS RECLINED IN BED. STATES COMFORTABLE. BED LINEN CHANGED
--- NOTE | 2023-09-09 09:36 | NUR ---
SPOKE TO PATIENT ABOUT THE DISCHARGE PLAN. PATIENT IS HAPPY THAT HE MAY GO TO [facility]. AUDIT TECH IS WAITING FOR [facility] TO GIVE THE OK FOR PLACEMENT.
--- NOTE | 2023-09-09 10:17 | NUR ---
URINAL PROVIDED FOR RESTROOM NEEDS. PAIN 07/24. PRN ANALGESIC TO BE PROVIDED
--- NOTE | 2023-09-09 10:30 | NUR ---
PRN ACETAMINOPHEN, BENTYL, AND SIMETHICONE GIVEN FOR ABDOMINAL DISCOMFORT. NO OTHER NEEDS ENDORSED AT THIS TIME. ART CONTINUES TO ENDORSE COMFORT IN RECLINER. TABLE AND CALL LIGHT WITHIN REACH.
--- NOTE | 2023-09-09 11:14 | NUR ---
ROUNDED WITH MD PONCE REGARDING ABDOMINAL DISCOMFORT AND TENDERNESS. CT ABDOMEN/PELVIS WITH AND WITHOUT CONTRAST ORDERED
--- NOTE | 2023-09-09 12:16 | NUR ---
BACK TO BED WITH 2P ASSIST TO READY FOR CT ABDOMEN/PELVIS. PAIN ENDORSED IS MINIMAL 2/10. ART STATES THAT HE FEELS "MUCH MORE COMFORTABLE" AND IS GRATEFUL FOR HIS CARE.
--- NOTE | 2023-09-09 13:52 | NUR ---
ART CONTINUES TO ENDORSE ABDOMINAL COMFORT AFTER PRN MEDICATIONS. 100% OF LUNCH CONSUMED.
--- NOTE | 2023-09-09 13:59 | NUR ---
IN TO ADMINISTER MEDICATION, SEE MAR. PT SITTING UP IN BED AND RESPONDS WHEN ADDRESSED. IV FLUSHES WNL. IV ABX STARTED, SEE MAR. PT REQUESTING TO USE BED TELLO, BED TELLO PLACED. PT REQUESTING SOME PRIVACY. CALL LIGHT IN PTs LAP. PT DENIES ANY OTHER NEEDS AT THIS TIME. CALL LIGHT IN REACH.
--- NOTE | 2023-09-09 14:24 | NUR ---
LESLEE AT [facility] CALLED AND A MESSAGE WAS LEFT TO FIND OUT IF THE PATIENT WAS EXCEPTED TO TRANSPORT TO REHAB. TUESDAY. WAITING FOR A RETURN CALL.
--- NOTE | 2023-09-09 15:16 | NUR ---
UPDATED MD PONCE OF CT ABDOMEN/PELVIS RESULTS. SEE CHART FOR DETAILS. VERBAL ORDER FOR CONSULT WITH MD HERNANDEZ PLACED
--- NOTE | 2023-09-09 15:21 | NUR ---
CHAPLAIN CARLO RUSHING IN ROOM PER PATIENT REQUEST
--- NOTE | 2023-09-09 15:29 | NUR ---
REFERRED BY DANIEL QUIROZ. PT HAD REQUESTED SPIRITUAL CARE. IN CONVERSATION PT TALKED OF HALUCINATIONS, PAST TRAUMA, DIFFICULTY SLEEPING; REQUESTED PRAYER OF PROTECTION AND HEALING. DITCH WORKER LISTENED EMPATHETICALLY, PROVIDED SUPPORTIVE PRESENCE, EXPLORED BOUCHRA PRACTICES, PROVIDED PRAYER AND PRAYER RESOURCES. WILL PROVIDE ADDITIONAL SUPPORT NECESSARY.
--- NOTE | 2023-09-09 15:58 | NUR ---
IN TO ROUND ON PT. PT SITTING UP IN BED. PT RESPONDS WHEN ADDRESSED. URINAL EMPTIED. PT DENIES ANY OTHER NEEDS AT THIS TIME. CALL LIGHT IN REACH.
--- NOTE | 2023-09-09 17:11 | NUR ---
ART IS RESTING IN BED WATCHING TELEVISION. PRN MEDICATIONS GIVEN FOR ABDOMINAL DISCOMFORT
--- NOTE | 2023-09-09 19:30 | NUR ---
REPORT RECEIVED FROM DAY RN. PATIENT RESTING IN BED WATCHING TV. PATIENT REQUESTING NAUSEA MEDICATIONS AND PAIN MEDICATIONS.
--- NOTE | 2023-09-09 19:48 | CONS ---
[facility] [address], [place] [address] Signed DATE OF CONSULTATION: 09/09/2023 TIME: 5 p.m. REQUESTING PHYSICIAN: Dr. Littlejohn. ISSUE: Abdominal pain, diarrhea, CT scan with pelvic ascites fluid. HISTORY OF PRESENT ILLNESS: This 48-year-old [place] man is from the [facility]. He is homeless. He was admitted on August 31, 2023 with probable sepsis and found to have a nonviable right lower extremity for which he has undergone guillotine amputation by Dr. Singh on September 02, 2023. He returned to the OR and underwent several debridements with irrigation and dressing changes and ultimately underwent closure of the amputation on September 07, 2023. A drain was not placed. The patient has been bothered by diarrhea for quite some time including at time of admission in the hospital. He has been on loperamide for diarrhea control. He had complaints of abdominal pain today and was evaluated by his nurse and consultation undertaken with surgery at her request through Dr. Littlejohn following a CT scan of the abdomen and pelvis, which showed a rim enhancing fluid collection right lateral thigh with foci of free air measuring 8 x 3 cm, suspicious for abscess and small volume of ascites predominantly within the pelvis and bilateral pleural effusions and a nonobstructing right renal calculus. The patient tells me he has had diarrhea long-standing and that is the reason for his use of loperamide on a routine basis. He was told by a physician elsewhere that this was a manifestation of his underlying diabetes. The patient at this moment has no complaints of abdominal pain. He does have an Attends diaper on. LAB STUDIES: Today show white count of 11.0, yesterday 13.6, hematocrit is 22.5, which is slightly increased. His Chem profile is essentially normal with a sodium of 132, alkaline phosphatase is somewhat elevated at 169. PAST MEDICAL HISTORY: Notable for underlying diabetes mellitus, hypertension, acute kidney injury, bilateral Electronically Signed By: TREVOR HERNANDEZ MD 09/09/23 1948 PATIENT NAME: MARCELLA FERGUSON CONSULTATION DATE OF : 75 REPORT #: [id number] PHYSICIAN: TREVOR HERNANDEZ MD PCP: NO PRIMARY CARE PHYSICIAN REPORT IS CONFIDENTIAL AND NOT TO BE RELEASED WITHOUT AUTHORIZATION [facility] [address], [place] [address] Signed below-knee amputation, now recently right above-knee amputation, depression, PTSD, drug use, tobacco use, and generalized weakness. REVIEW OF SYSTEMS: He denies any chest pain or shortness of breath at this time. He does admit to diarrhea which has been long-standing. He has no acute abdominal pain at this moment. PHYSICAL EXAMINATION: GENERAL: A disheveled, cooperative [place] man who does not look systemically toxic at the moment. VITAL SIGNS: Temperature is 99.5, pulse 109, blood pressure 136/70, O2 saturation is 100% on room air. CHEST: Shows normal respiratory excursion. He has no tachypnea. HEART: Regular. ABDOMEN: Nondistended and flat. There is no focal tenderness. No generalized ascites. EXTREMITIES: His right above-knee amputation bandage is secured without sign of drainage. Left below-knee leg amputation site appears normal. I have reviewed the CT scan of the abdomen and pelvis in detail. He does have bilateral pleural effusion without loculation. The liver appears normal. Stomach has fair amount of fluid and air within it. There is hypodense lesion in the region of the falciform ligament of little concern and probably part of the falciform ligament. Gallbladder appears normal. Both kidneys are well perfused and normal. Aorta and vena cava are normal. Colonic air is noted. There is no sign of small-bowel obstruction to my examination. He has scant intra-abdominal fat. Bladder appears to be distended. The rectum appears to be normal. ASSESSMENT: The source of his diarrhea is uncertain, but long-standing and present even at the time of admission. The symptoms have largely been controlled with loperamide administration. He has had no blood per rectum. I did inquire whether or not he has ever had colonoscopy and he seems not to know. I did discuss the concept with him to assess for source of chronic diarrhea. He declines such intervention at this time, though while hospitalized with bowel prep would be a more optimal time to consider it if there is any concern that an underlying inflammatory bowel disease problem accounts for his symptoms, particularly given his age of 48 years. He has a difficult social circumstance with homelessness, though he is distantly allied with the [place] in the [facility]. He has had family in that area but knows of no family contact in that area at this time. I will discuss this further with Dr. Littlejohn. Whether or not a colonoscopy would be advisable may need to be determined. As regards the fluid collection, it is 8 x 3 cm in the right lateral thigh. This is Electronically Signed By: TREVOR HERNANDEZ MD 09/09/231947 PATIENT NAME: MARCELLA FERGUSON CONSULTATION DATE OF : 75 REPORT #: [id number] PHYSICIAN: TREVOR HERNANDEZ MD PCP: NO PRIMARY CARE PHYSICIAN REPORT IS CONFIDENTIAL AND NOT TO BE RELEASED WITHOUT AUTHORIZATION [facility] [address] [place], [place] [address] Signed certainly part of the ongoing care regarding his recent amputation. Whether drainage should be undertaken would be left to the decision of Dr. Singh of course. Certainly the closure of the wound and its underlying etiology to begin with was infectious in nature, but he seems to have a a decreasing white count and drainage of the area at this time is not likely anticipated, though continued monitoring to assess for necessitation or accelerating symptoms would be warranted. MD EFE Rios/VERAL /[id number] cc: Dr. Annetta Singh Copies: ~ Electronically Signed By: TREVOR HERNANDEZ MD 09/09/23 1948 PATIENT NAME: MARCELLA FERGUSON CONSULTATION DATE OF : 75 REPORT #: [id number] PHYSICIAN: TREVOR HERNANDEZ MD PCP: NO PRIMARY CARE PHYSICIAN REPORT IS CONFIDENTIAL AND NOT TO BE RELEASED WITHOUT AUTHORIZATION
--- NOTE | 2023-09-09 20:07 | NUR ---
PATIENT GIVEN PRN MEDICATIONS. C/O NAUSEA, PAIN AND ABDOMINAL PAIN. SEE APR. HS TANYA JACOB. NURSING DIRECTOR IN ROOM ASSISTING PATIENT WITH BED TELLO.
--- NOTE | 2023-09-09 21:10 | NUR ---
BOWEL TONES ACITVE X 4 QUADRANTS. LUNGS CTA, DRESSING TO RLE REMAINS CDI. FEMORAL PULSES STRONG. PATIENT REQUESTING CHICKEN BROTH. CHICKEN BROTH GIVEN. NO FURTHER NEEDS AT THIS TIME. CALL LIGHT WITHIN REACH.
--- NOTE | 2023-09-09 23:15 | NUR ---
PATIENT RESTING IN BED WITH EYES CLOSED. RESPIRATIONS EVEN AND UNLABORED. CALL LIGHT WITHIN REACH.
[2023-09-10] VITALS (9 sets, daily range): BP systolic 110–131; BP diastolic 50–90
--- NOTE | 2023-09-10 02:13 | NUR ---
PATIENT RESTING IN BED. SITTING WITH HOB AT 45 DEGREES. IV ABX HUNG. URINAL EMPTIED. PATIENT C/O GI UPSET, REFUSES ANY PRNS AT THIS TIME. CALL LIGHT WITHIN REACH.
--- NOTE | 2023-09-10 04:27 | NUR ---
PATIENT RESTLESS IN ROOM. BEDDING SOILED WITH URINE. BEDDING CHANGED. PATIENT GIVEN BED BATH. NEW BEDDING, NEW BREIF. PATIENT C/O PAIN 9/10 IN RIGHT LEG PRN GIVEN. VSS. NO FURTHER NEEDS IV SITE PATENT. DRESSING TO RIGHT LEG REMAINS CDI WITH JESSIKA BANDAGE IN PLACE. BED ALRM SCHOOL OPERATIONS MANAGER LIGHT WITHIN REACH.
--- NOTE | 2023-09-10 05:53 | NUR ---
PATIENT ASSISTED WITH USING THE URINAL. VOIDING QUANITY SUFFICIENT.
--- NOTE | 2023-09-10 07:51 | NUR ---
SBAR REPORT RECEIVED FROM DANIEL KHOURY. ALL EVENTS OF THE EVENING WERE DISCUSSED AND PLAN OF CARE REVIEWED. ART IS NOTED TO BE AWAKE IN BED AND REQUESTING A URINAL.
--- NOTE | 2023-09-10 07:55 | NUR ---
RECEIVED REPORT FROM DANIEL KHOURY. ASSUMING CARE OF PT WITH DANIEL HERNANDEZ. PT USES CALL LIGHT D/T BEING FINISHED USING URINAL, THIS RN EMPTIES URINAL. PT STATES NO FURTHER NEEDS AT THIS TIME, CALL LIGHT WITHIN REACH.
--- NOTE | 2023-09-10 10:18 | NUR ---
NEURO- ALERT AND ORIENTED X 4, MOVES ALL EXTREMITIES (LEFT BKA/RIGHT AKA), ENDORSES INCREASED ABDOMINAL COMFORT THIS AM, COMMUNICATES ALL NEEDS AND DESIRES, POOR VISION, PRN MEDS FOR COMFORT, ANXIETY SURROUNDING SPIRITUALITY AT TIME. CARDIAC- AFEBRILE, TRACE EDEMA IN RLE, PALPABLE RADIAL AND FEMORAL PULSES, INTERMITTENT TACHYCARDIA PER CPOX RESP- RA, DIMINISHED BREATH SOUNDS IN BLE GI/- 60G CARB DIET, VOIDS IN URINAL, BEDPAN FOR BM, NORMOACTIVE BOWEL TONES IN ALL 4 QUADRANTS, ENDORSED SLIGHT ABDOMINAL TENDERNESS TO PALPATION, GOOD APPETITE INT- SEE ASSESSMENT LDA- L PIV
--- NOTE | 2023-09-10 10:23 | NUR ---
PT REQUESTS TO USE BEDPAN, BEDPAN IN PLACE. PT STATES HE WOULD LIKE PRIVACY AND WILL USE CALL LIGHT WHEN FINISHED USING BEDPAN. CALL LIGHT WITHIN REACH.
--- NOTE | 2023-09-10 10:35 | NUR ---
PT DONE USING BED TELLO, MARGARITA AREA CLEANED, CLEAN DEPENDS IN PLACE. PT REQUESTS ICE WATER, GIVEN. PT STATES NO FURTHER NEEDS AT THIS TIME. CALL LIGHT WITHIN REACH.
--- NOTE | 2023-09-10 12:31 | NUR ---
ART CALLED TO ENDORSE RESTROOM NEEDS. URINAL PROVIDED. ART IS WATCHING TELEVISION. NO OTHER NEEDS ENDORSED AT THIS TIME
--- NOTE | 2023-09-10 15:23 | NUR ---
ANT ENDORSES COMFORT AT THIS TIME. HE IS IN HIS BED WITH MOTHER AT BEDSIDE. THEY ARE WATCHING MURDER/PARANORMAL STORIES ON TELEVISION WHICH MAY BE CONTRIBUTING TO ART'S NIGHTMARES. THIS RN ASKED IF THEY WOULD LIKE TO CHANGE THE CHANNEL AND PROVIDED A TV GUIDE. THEY STATED THAT THEY ENJOY THOSE KINDS OF SHOWS AND WATCH THEM "ALL OF THE TIME"
--- NOTE | 2023-09-10 15:50 | NUR ---
PT USES CALL LIGHT TO REQUEST COBAN BE TAKEN OFF ARM FROM EARLIER, COMPLETED. PT REQUESTS DIET SODA AND BROTH, GIVEN. PT STATES NO FURTHER NEEDS AT THIS TIME, CALL LIGHT WITHIN REACH.
--- NOTE | 2023-09-10 16:02 | NUR ---
PATIENT IN BED AT THIS TIME. CALL LIGHT WITHIN REACH, NO FURTHER NEEDS AT THIS TIME.
--- NOTE | 2023-09-10 17:37 | NUR ---
PT REQUESTS TO USE BEDPAN, BEDPAN PLACED. PT STATES HE WOULD LIKE PRIVACY AND THAT HE WILL USE CALL LIGHT WHEN FINISHED. CALL LIGHT WITHIN REACH.
--- NOTE | 2023-09-10 19:25 | NUR ---
Resting, Right side, no s/sx distress
--- NOTE | 2023-09-10 20:09 | NUR ---
AWAKE, SITTING UP IN BED, HOB ELEVATED, DRINKING AND TOLERATING FLUIDS, COOPERATIVE WITH ASSESSMENT AND VITALS, R STUMP COVERED WITH JESSIKA WRAP. JORGE ABX INFUSING LBELOW AC AREA, PATENT. PT PLEASANT AND COOPERATIVE. STATED HE IS BLINGA, FLUIDS PLACED AT HANDS REACH AND DESCRIBED TO PT. COOPERATIVE
--- NOTE | 2023-09-10 20:31 | NUR ---
C/O 08/23 R LEG PAIN, MEDICATED WITH TYLENOL, WATCHING TV
--- NOTE | 2023-09-10 22:33 | NUR ---
WAS INCONTINENT OF URINE, SKIN CARE AND CLEAN ATTENDS IN PLACE, R STUMP COVERED WITH JESSIKA WRAP, PT TURNS AND TRANSFERS WELL, TOLERATING LIQUIDS WELL, NO FURTHER C/O PAIN, IV ABX INFUSING. WATCHING TV
--- NOTE | 2023-09-10 23:35 | NUR ---
Assisted Pt with using urinal in bed. Cleaned and changed Pt's chucks and bedding PRN. Call light left in reach. No other needs expressed by Pt.
--- NOTE | 2023-09-10 23:48 | NUR ---
rESTING, EYES CLOSED, TURNS AND REPOSITIONS SELF IN BED, IV ABX COMPLETED. NO S/SX ADVERSE REACTION R STUMP DRESSING IN PLACE, CDI
[2023-09-11] VITALS (10 sets, daily range): BP systolic 102–137; BP diastolic 72–99
--- NOTE | 2023-09-11 00:47 | NUR ---
pt was incontinent of urine, whole bed and gown changed, clean attends, skin care. used urinal too. c/o 11/23 r stump pain. medicated with Oxycodone 5mg po. snacks given on requests
--- NOTE | 2023-09-11 00:50 | NUR ---
Assisted Pt with emptying urinal. Changed full bedding due to urinal spilling. Provided Pt snack of crackers, sugar-free Jello, and chicken broth (240 mL). No other needs expressed by Pt. Call light left in reach.
--- NOTE | 2023-09-11 02:37 | NUR ---
Awake, watching tv, no c/o pain. RAKA dressing in place, CDI.
--- NOTE | 2023-09-11 04:36 | NUR ---
awake, watching tv, no c/o pain. irritable over iv pump noise. declines to have arm in straight position. coffee given on requests
--- NOTE | 2023-09-11 04:59 | NUR ---
watching tv, c/o feeling nauseated, medicated with Zofran IV.
--- NOTE | 2023-09-11 06:38 | NUR ---
WATCHNG TV, NO C/O PAIN.
--- NOTE | 2023-09-11 07:45 | NUR ---
RECEIVED REPORT FROM DANIEL MORRELL. PT SITTING UP IN BED, REQUESTS TYLENOL FOR 6/10 PAIN IN RLE, GIVEN. PT ASSISTED WITH SETTING UP BREAKFAST TRAY, PT STATES NO FURTHER NEEDS AT THIS TIME, CALL LIGHT WITHIN REACH.
--- NOTE | 2023-09-11 08:10 | NUR ---
PT SITTING UP IN BED AWAKE, STATES PAIN IS 6/10, REQUESTS TYLENOL, GIVEN. EDEMA REMAINS IN RLE, DECREASING. PT STATES HE IS HAVING MINIMAL NAUSEA AT THIS TIME, DENIES NEED FOR NAUSEA MEDICATION. RLE DRESSING C/D/I. PT STATES NO FURTHER NEEDS AT THIS TIME, CALL LIGHT WITHIN REACH.
--- NOTE | 2023-09-11 08:33 | NUR ---
PT FINISHES BREAKFAST TRAY, REQUESTS WARM BLANKET, GIVEN. PT USES URINAL, EMPTIED. PT STATES NO FURTHER NEEDS AT THIS TIME, CALL LIGHT WITHIN REACH.
[2023-09-11 08:43] LABS: BASOPHILS 1.3 % (0-2); EOSINOPHILS 1.3 % (0-6); HEMATOCRIT 21.9 % (35.0-50.0); HEMOGLOBIN 7.3 g/dL (12.0-18.0); LYMPHOCYTES 20.4 % (24-44); MCH 27.6 (27-36); MCHC 33.5 g/dl (30-36); MCV 82.5 fl (81-99); MONOCYTES 7.6 % (0-12); NEUTROPHILS 69.4 % (39-80); PLATELET COUNT 960 K/uL (140-440); RBC 2.66 M/ul (4.3-5.7); RDW 14.7 (10.5-15.0)
[2023-09-11 08:57] LABS: ALBUMIN 1.8 g/dL (3.4-5.0); ALBUMIN/GLOBULIN RATIO 0.35 (1.1-2.4); ANION GAP 13.5 (7-21); BILIRUBIN, TOTAL 0.2 ng/dL (0.2-1.0); BUN/CREATININE RATIO 12.76 (6.0-28.6); CALCIUM 7.9 mg/dL (8.5-10.1); CREATININE, SERUM 0.94 mg/dL (0.70-1.30); POTASSIUM 4.5 mmol/L (3.5-5.1)
[2023-09-11] MEDS ORDERED: SODIUM CHLORIDE 0.9% 1,000 ML IV SCH (09:15)
[2023-09-11] MEDS ORDERED: levoFLOXacin 750 MG TAB PO SCH (12:30)
[2023-09-11 13:22] LABS: ANION GAP 12.6 (7-21); BUN/CREATININE RATIO 12.76 (6.0-28.6); CALCIUM 8.3 mg/dL (8.5-10.1); CREATININE, SERUM 0.94 mg/dL (0.70-1.30); POTASSIUM 4.6 mmol/L (3.5-5.1)
--- NOTE | 2023-09-11 13:30 | NUR ---
PT UP TO CHAIR AWAKE, STATES PAIN IS 5/10, DENIES NEED FOR PAIN MEDICATION CURRENTLY. TAKES PO ABX W/O DIFFICULTY. DRESSING ON R LEG REMAINS C/D/I. PT STATES THAT SKIN AROUND EDGE OF DRESSING IS "EXTREMELY ITCHY", AREA CLEANED WITH BED BATH WIPES, LOTION APPLIED TO AREA. PT STATES NO NEEDS AT THIS TIME, CALL LIGHT WITHIN REACH.
--- NOTE | 2023-09-11 14:18 | NUR ---
IV PUMP ALARMING, RESOLVED, PT REMAINS UP TO CHAIR, STATES NO NEEDS AT THIS TIME. URINAL EMPTIED. CALL LIGHT WITHIN REACH.
--- NOTE | 2023-09-11 14:48 | NUR ---
PT REQUESTS SUPPLIES TO BRUSH HIS TEETH, PT BRUSHING TEETH INDEPENDENTLY IN CHAIR. PT DENIES ANY FURTHER NEEDS AT THIS TIME, CALL LIGHT WITHIN REACH.
--- NOTE | 2023-09-11 15:30 | NUR ---
PATIENT ROOM CLEANED UP AFTER PATIENT SPILLED WATER. PATIENT REPORTED FEELING HYPOGLYCEMIC. PATIENT BLOOD SUGAR TAKEN AND IT WAS 59. PATIENT GIVEN APPLE JUICE AND A SODA. PATIENT TO RECHECK BLOOD SUGAR IN 15 MINUTES. PATIENSTATED NO FURTHER NEEDS AT THIS TIME. CALL LIGHT AND PERSONAL BELONGINGS ARE WITHIN REACH.
--- NOTE | 2023-09-11 15:35 | NUR ---
VERONICA, RN NOTIFIES THIS RN THAT PT'S CBG IS 59 AND THAT JUICE HAS BEEN GIVEN.
--- NOTE | 2023-09-11 15:44 | NUR ---
CBG 83. PT STATES HE IS STILL FEELING SYMPTOMATIC AT THIS TIME, ADDITIONAL JUICE GIVEN WELL SNACKS REQUESTED. PT STATES HE BEGINS TO FEEL "BETTER" WHILE THIS RN STILL IN ROOM. PT MOTHER AT BEDSIDE. PT STATES NO FURTHER NEEDS AT THIS TIME, CALL LIGHT WITHIN REACH.
--- NOTE | 2023-09-11 16:08 | NUR ---
PT TRANSFERS FROM CHAIR TO BED WITH 1PA. PT STATES NO FURTHER NEEDS AT THIS TIME, CALL LIGHT WITHIN REACH.
--- NOTE | 2023-09-11 17:22 | NUR ---
PT SITTING UP IN BED EATING DINNER. PT STATES NO NEEDS AT THIS TIME, CALL LIGHT WITHIN REACH.
[2023-09-11 18:13] LABS: ANION GAP 13.4 (7-21); BUN/CREATININE RATIO 11.22 (6.0-28.6); CALCIUM 8.1 mg/dL (8.5-10.1); CREATININE, SERUM 0.98 mg/dL (0.70-1.30); POTASSIUM 4.4 mmol/L (3.5-5.1)
--- NOTE | 2023-09-11 19:05 | NUR ---
Pt resting, hob elevated, room air, IVF infusing, pt has arms dranw up and crossed over chest, non receptive to straighten arm as iv punm is going off. IV site patent below LAC area. RAKA dressing in place, LBKA w scabbed over areas over knee area no changes, denies s/sx of hypo/hyperglycemia
--- NOTE | 2023-09-11 20:15 | NUR ---
PATIENT CALLED ASKING FOR MED. PRIMARY RN NOTIFIED. THIS FAST FOOD ASSISTANT RESTAURANT MANAGER WENT IN TO THE ROOM. EMPTIED URINAL WITH 400ML YELLOW URINE. BLOOD SUGAR CHECK DONE. BORE MILL OPERATOR FOR PLASTIC WAS IN THE ROOM. V/S AND OUTPUT COMPLETED. PATIENT ASKED FOR HOT TEA. PROVIDED. PATIENT ASKED MEDS FOR NAUSEA. PRIMARY RN NOTIFIED.
--- NOTE | 2023-09-11 20:47 | NUR ---
COOPERATIVE WITH ASSESSMENT, C/O UPSET STOMACH AND FEELING NAUSEATED. MEDICATED WITH ZOFRAN IV. IVF INFUSING. TOLERATING LIQUIDS. RAKA DRESSING CDI. PT SITTING UOP IN BED, TURNS AND REPOSITIONS SELF. USES URINAL
--- NOTE | 2023-09-11 22:41 | NUR ---
Resting, eys closed, no s/sx ditress, IVF infusing. dressing RAKA intact
[2023-09-12] VITALS (7 sets, daily range): BP systolic 99–116; BP diastolic 70–78
--- NOTE | 2023-09-12 00:04 | NUR ---
Pt called, I was rubbing my leg and feklt very rough and painful, my dressiing has come off. RAKA dressing off. Stump incision site with sutures in plce, edges well approximated, pale, warm to touch. dressing rewrapped with foam non adherent dressing, abd, kerlix and maryam wrap. elevated with pillows, tolerated fair. C/o 10/10 pain, medicated with Bentyl 20mg per c/o abd pain 'from pain', Melatonin per c/o needing to go to sleep after being in pain. Oxycodone 10mg po per RAKA pain. repositions self in bed, attends in plce, tolerating liquids well. IVF stopped at [facility] as per new orders. SL patent, flushes easily. warm blanket given . hob elevated to comfort
--- NOTE | 2023-09-12 02:41 | NUR ---
Pt resting, no s/sx distress. L arm elevated in pillows, SL patent. both upper legs elevated in pillows, R AKA dressing intact.
--- NOTE | 2023-09-12 05:18 | NUR ---
pt awake, watching tv, no c/o pain. cooperative with assessment and vitals, repositioned in bed. both KA elevated w pillows. LBKA scabs no changes, RAKA dressing CDI, edema no changes. SL LAC area patent. wrm blanket and coffee given on requests. used urinal, voiding QS clear yellow urine. Attends in place as he dribbles while using urinal at times, clean and dry at this time, no bms this shift
[2023-09-12 05:35] LABS: BASOPHILS 1.2 % (0-2); EOSINOPHILS 1.9 % (0-6); HEMOGLOBIN 7.7 g/dL (12.0-18.0); LYMPHOCYTES 22.3 % (24-44); MCH 27.8 (27-36); MCHC 33.6 g/dl (30-36); MCV 82.6 fl (81-99); MONOCYTES 6.8 % (0-12); NEUTROPHILS 67.8 % (39-80); RBC 2.78 M/ul (4.3-5.7); RDW 14.5 (10.5-15.0)
[2023-09-12 05:50] LABS: ALBUMIN 1.7 g/dL (3.4-5.0); ALBUMIN/GLOBULIN RATIO 0.29 (1.1-2.4); ANION GAP 14.5 (7-21); BILIRUBIN, TOTAL 0.2 ng/dL (0.2-1.0); BUN/CREATININE RATIO 11.95 (6.0-28.6); CALCIUM 8.3 mg/dL (8.5-10.1); CREATININE, SERUM 0.92 mg/dL (0.70-1.30); POTASSIUM 4.5 mmol/L (3.5-5.1); PROTEIN, TOTAL 7.5 g/dL (6.4-8.2)
[2023-09-12 05:52] LABS: PLATELET COUNT 1001 K/uL (140-440)
--- NOTE | 2023-09-12 06:35 | NUR ---
DR SANDHU NOTIFED AT BLOOD LAB VALUES OF CRITICAL VALUE PLALETS 1001, NA 125, RBC 278, H AND H OF 7.7 AND 23
--- NOTE | 2023-09-12 07:23 | NUR ---
Pt report received from RN Amena Hernandez. Pt is awake, Aides Magdalena and Jodi are in with pt for berenice care and linen change. Pt denies needs at this time, but later tells Jodi that he's having pain and she advised me of this. Will medicate per emar. Call light in reach. side rails up x4.
[2023-09-12] MEDS ORDERED: SODIUM CHLORIDE 0.9% 1,000 ML IV SCH ×2 (07:45→20:00)
--- NOTE | 2023-09-12 07:58 | NUR ---
PT WAS IN A BED TELLO AND, GOT THE BED WET AND ASKED VIDEO PLAYER MECHANIC TO HELP ME CHANGE HIS LINENS. PT WAS ABLE TO TURN. PT WANTED AN WARM BLANKET AND SAID HE WAS IN PAIN NURSE WAS NOTIFIED. TOOK PT BS AND IT WAS CHARTED. PT DIDNT NEED ANYTHING ELSE AND CALL LIGHT IS WITHIN REACH.
[2023-09-12] MEDS ORDERED: FLUCONAZOLE 200 MG TAB PO SCH (09:00)
[2023-09-12] MEDS ORDERED: HEParin SOD (PORCINE) 5,000 UNIT/0.5 ML SYR SUB-Q SCH (09:01)
--- NOTE | 2023-09-12 09:23 | NUR ---
3Received a call from Margo from the [facility]. They have programs to assist Arian. Update given we are still planning on placement to [facility] when they have a bed open. Plan would then be for pt to go to [facility] [place] in [facility]. After I spoke with Margo I called Lawanda at the [facility] in [place]. They will discuss this pt for placement in the AM meeting. It is difficult as pt would need to meet criteria on dc from [facility], they would need to have a medicaid bed open. Attempted to call Heather haddad at [facility] as she left a message this am stating they do not have a bed open today. Dr. Angulo was updated in the 8:30 meeting.
--- NOTE | 2023-09-12 11:13 | NUR ---
UR CONCURRENT REVIEW: [facility]CON[facility] REVIEW COMPLETED. DOES NOT MEET GL DAY 4 VIARIANCE ADDED. [facility] INPT 08/31/23 @ 1901 WILL SEND CLINICAL TO [facility] FOR AUTH REVIEW. DISCHARGE PENDING FURTHER ASSESSMENT 09/15/23
--- NOTE | 2023-09-12 12:00 | NUR ---
Spoke with pt and his mom, Nae. Pt updated Heather from [facility] called this am and they do not have a bed open. I attempted to call her back but I was unable to reach. Discussed with family I will cont. to work with PATRICIA and Alyce in [facility]. Let them know, Margo called from [facility] in [place]. Arian then stated he doesn't appreciate being lied to about IPR and he thinks he will possible ask to be discharged. I at this point discussed with pt he was not lied to, we have been waiting for a bed and it did not open today. He cont. to complain that "no one is willing to assist him". I them I will let them discuss this between themselves. If he wishes to go AMA, he may do so and I will let the know. Dr. Angulo updated.
[2023-09-12 12:22] LABS: ANION GAP 13.5 (7-21); BUN/CREATININE RATIO 12.12 (6.0-28.6); CALCIUM 8.5 mg/dL (8.5-10.1); CREATININE, SERUM 0.99 mg/dL (0.70-1.30); POTASSIUM 4.5 mmol/L (3.5-5.1)
--- NOTE | 2023-09-12 12:33 | NUR ---
CALLED TO PATIENT'S ROOM TO DISCUSS THE DISCHARGE PLAN. PATIENT'S MOTHER AND THE PATIENT WOULD LIKE TO SKIP REHAB AND GO TO SNF AT [facility]. ALTON UPDATED ON PATIENTS' AND MOTHER'S REQUEST.
--- NOTE | 2023-09-12 12:40 | NUR ---
In with pt for hourly rounding. Pt advised he is finished with his lunch (ate about 50%) and requested a cup of vegetable broth, which was brought to him. Pt denies further needs at this time. Lights turned off at his request, side rails up, call light in reach.
--- NOTE | 2023-09-12 12:40 | NUR ---
In with pt for hourly rounding. Found pt laying prone in his bed, A&O x4. Pt states he is trying to stretch out his back muscles. Pt denies needing any help or other needs at this time. Call light in reach.
--- NOTE | 2023-09-12 14:00 | NUR ---
I attempted to contact Heather at [facility] and left a message. I also attempted to contact Lawanda at [facility] in [place]. I was notified by Rosa Maria my coworker pts mother has requested a visit to the room and has called. Mom is stating they will not go to [facility] and will go directly to [facility]. I called Lawanda again and was able to speak with her. She states she has not spoken with the family since last week, they do not have any bed open at this time for placement. Pt was discussed in the meeting this am, but they cannot accept him until he discharges from [facility] and they would need to send a referral at that time. Chichi, pts mom, then called my office and is requesting I come to their room. I let her know I am currently working with another pt and I will visit with them when I finish. Mother becomes angry and wants to know why the other CM can't work with them. I let her know she has her own patients she is caring for. We discussed there have been several phone calls and visits. Let her know I am more than willing to assist, but I have to be able to see everyone.
--- NOTE | 2023-09-12 14:45 | NUR ---
Received a call back from Heather. They will accept this pt when they have a bed open this week. They will have their weekly review tomorrow and know more about when a bed will open.
--- NOTE | 2023-09-12 15:00 | NUR ---
Called and spoke with Margo from SW field technical support consultant from the [facility]. She states she has had multiple calls and emails today about this pt. We discussed I am attempting to place him at [facility], but they did not have a bed open today. I am attempting to find a placement for him when he discharges from rehab as they would like a safe dc for him. She then transfered my call to Evetet, area field manager of the housing authority for [facility]. Evette states Arian is on their list and has been for a while. They do not have any ADA housing currently. He could fill out the Emergency Housing form and would need to pick a motel and if approved they will supply a voucher for him to stay at least 1 month. She will fax the form. They are unable to discuss anything with the mom as she is not listed as someone to release info. Mom called and left a message she is needing help filling out pts housing form.
--- NOTE | 2023-09-12 15:30 | NUR ---
Spoke with Margo from [facility], 56 minute phone call where I again spoke with several people from different programs. Pt needs to update his housing forms so they can attempt to find him housing. There was some confusion when we were discussing rehab. I was put through to Pricilla from the longterm program we discussed rehab for a lengthy period before I realized she was discussing A&D rehab and not physical therapy. She states she has worked frequently with Arian in the past. They provide post A&D housing/placement. Pt would not qualify for their program as he has not completed A&D rehab.
--- NOTE | 2023-09-12 15:39 | NUR ---
In with pt who is working with Physical Therapist, Ngoc. Pt's dressing to his right thigh had fallen off before he transferred to the chair via slide board. Dressing reapplied and will be reassessed before he transfers back to bed after dinner. Wound is closed, clean and dry with minimal dry drainage noted inside the dressing.
--- NOTE | 2023-09-12 17:00 | NUR ---
Returned to pt room and gave him the Emergency housing application. Pt again stating he does not appreciate being lied to as he was told he could go to [facility] and he will discuss his dc with the Dr and wants to leave. I again let him know that is up to him, but he is missing an opportunity for rehab. Charge nurse updated. Dr Angulo texted update.
--- NOTE | 2023-09-12 17:08 | PATH ---
[facility] [address], [place] [address] Signed SPECIMEN(S): A RIGHT KNEE SPECIMEN SOURCE: A. RIGHT KNEE CLINICAL HISTORY: Septic right knee, s/p BKA. FINAL PATHOLOGIC DIAGNOSIS: Right leg, above-knee amputation: - Skin with acute inflammation and underlying tissue with dense collection of inflammatory cells consistent with abscess formation. - Proximal soft tissue margin and bone, negative for inflammation NA MICROSCOPIC EXAMINATION: Histologic sections of all submitted blocks are examined by light microscopy. These findings, together with the gross examination, support the pathologic diagnosis. GROSS DESCRIPTION: The specimen, labeled and designated "Sal, right knee," is received in formalin and consists of amputated leg. The specimens measure 35 centimeters in length and 8.0 to 13.5 cm in diameter. The level of the amputation is 19 cm above the knee. Approximately 15 cm below the knee is site of previous amputation. The skin on stump shows ulcerous defect that measure 2 cm in diameter. Defect is covered with yellow-cornelius, liquefied tissue. Through defect protruding underlying yellow bone tissue. Through defect is leaking yellow-cornelius, foul smell purulent fluid. The knee is swollen and upon sectioning shows copious amount of similar purulent fluid the soft tissue resection margin looks viable. Subcutaneous tissue on anterior aspect of the knee is green-cornelius, liquefied with a copious amount of purulent fluid. The purulent fluid is within the knee joint. The popliteal artery is soft with patent lumen. Specimen is left for decalcification in Decal Stat prior to processing. Cassette Summary: (A1) femur marrow resection margins cramping, skin and soft resection margin, closest to the infected subcutaneous tissue, appeals representative sections (A2) ulcerous defect and underlying bone, appeals representative sections PATIENT NAME: MARCELLA FERGUSON PATHOLOGY DATE OF : 75 REPORT #: [id number] PHYSICIAN: CAITLIN PATHOLOGY PCP: NO PRIMARY CARE PHYSICIAN REPORT IS CONFIDENTIAL AND NOT TO BE RELEASED WITHOUT AUTHORIZATION [facility] [address], [place] [address] Signed (A3) skin and subcutaneous tissue on anterior aspect of the knee and popliteal artery, appeals representative sections JS (under the direct supervision of a pathologist) The Gross Description was prepared using a voice recognition system. The report was reviewed for accuracy; however, sound-alike word errors, addition and/or deletions may occur. If there is any question about this report, please contact Client Services. ADDITIONAL NOTES: Immunohistochemical and/or in situ hybridization studies if performed in this case included appropriate positive controls that reacted as expected. This test was developed and its performance characteristics determined by [facility]. It has not been cleared or approved by the U.S. Food and Drug Administration. The FDA has determined that such clearance or approval is not necessary. This test is used for clinical purposes. It should not be regarded as investigational or for research. [facility] is certified under the Clinical Laboratory Improvement Amendments of 1988 (CLIA) as qualified to perform high complexity clinical laboratory testing. PERFORMING LABORATORY: Technical component was performed by [facility], [address] [place] [id number] (CLIA# [id number]). Professional interpretation was performed by [facility], [address] [address] (CLIA#: [id number]). Diagnostician: Juan Kitchen MD Pathologist Electronically Signed 09/12/2023 Copies: ~ PATIENT NAME: MARCELLA FERGUSON PATHOLOGY DATE OF : 75 REPORT #: [id number] PHYSICIAN: CAITLIN PATHOLOGY PCP: NO PRIMARY CARE PHYSICIAN REPORT IS CONFIDENTIAL AND NOT TO BE RELEASED WITHOUT AUTHORIZATION
[2023-09-12 18:23] LABS: ANION GAP 13.6 (7-21); CALCIUM 8.2 mg/dL (8.5-10.1); POTASSIUM 4.6 mmol/L (3.5-5.1)
--- NOTE | 2023-09-12 19:42 | NUR ---
At about 1845 hours, in with pt to assist him with transferring back to bed from the chair. 2-person hands-on assist as the transfer was uphill and was more difficult for pt. Pt's RAKA was redressed as the dressing had fallen off again while he was in the chair. Pt's IV site was leaking when assessed after he got back into bed and was d/c'd at this time. On 2nd attempt to start a new IV, was able to insert a 20g IV in the right wrist, good return, flushes well. Pt tolerated insertion well. Prior to moving the pt from the chair, and the dressing change, pt was medicated for 9 out of 10 pain, with 10mg oxycodone. Side rails up x4, call light in reach. Urinal emptied of 275 clear yellow urine.
--- NOTE | 2023-09-12 19:50 | NUR ---
REPORT RECIEVED FROM DAY SHIFT RN. PATIENT RESITNG IN BED. DENIES NEEDS AT THIS TIME. CALL LIGHT IN REACH.
--- NOTE | 2023-09-12 21:32 | NUR ---
PATIENT RESTING IN BED, USING URINAL. VS AND I&Os OBTAINED AND RECORDED. SCHEDULED MEDICATION ADMINISTERED. BS OBTAINED AND RECORDED. BS WNL. PATIENT REQUESTING SNACKS, SNACKS PROVIDED. PATIENT REPORTS 4/10 R LEG PAIN, DENIES NEEDS AT THIS TIME. SNACKS PROVIDED PER PATIENT REQUEST. CALL LIGHT IN REACH. IV FLUSHES WNL.
--- NOTE | 2023-09-12 23:12 | NUR ---
CALL LIGHT ANSWERED. PATIENT STATES "I AM FEELING FEVER-RYAN CAN I HAVE SOME WATER TO COOL DOWN?". THIS RN CHECKED PATIENT TEMP. TEMP WNL. FRESH WATER PROVIDED. NO FURTHER NEEDS. CALL LIGHT IN REACH.
--- NOTE | 2023-09-13 01:49 | NUR ---
PATIENT RESTING IN BED ON BACK WITH EYES CLOSED. RESPIRATIONS EVEN AND UNLABORED. CALL LIGHT IN REACH. NEW BAG IV FLUID INFUSING PER ORDER.
--- NOTE | 2023-09-13 03:38 | NUR ---
CALL LIGHT ANSWERED. THIS RN ASSISTED PATIENT WITH URINAL. PATIENT INCONTINENT OF URINE. THIS RN AND PUBLIC HEALTH STAFF NURSE CHANGED PATIENT LINENS, AND CHUCKS. PATIENT REFUSING US TO CHANGE HIS SHORTS. PATIENT STATES "NO! I WILL CHANGE THEM MYSELF". THIS RN EDUCATED PATIENT TO CALL IF HE NEEDS ASSISTANCE. PATIENT HAS NO FURTHER NEEDS AT THIS TIME. CALL LIGHT IN REACH.
--- NOTE | 2023-09-13 03:52 | NUR ---
TELEPHONE ORDER FROM DR SANDHU TO IVF. PRIMARY DANIEL VALLADARES NOTIFIED.
--- NOTE | 2023-09-13 04:20 | NUR ---
PATIENT IV SL AT THIS TIME.
[2023-09-13 05:15] VITALS: BP 99/58
[2023-09-13 05:24] VITALS: BP 99/58
[2023-09-13 05:25] LABS: BASOPHILS 1.3 % (0-2); EOSINOPHILS 1.4 % (0-6); HEMATOCRIT 21.5 % (35.0-50.0); HEMOGLOBIN 7.1 g/dL (12.0-18.0); LYMPHOCYTES 16.6 % (24-44); MCH 27.2 (27-36); MCHC 33.1 g/dl (30-36); MCV 82.3 fl (81-99); MONOCYTES 7.5 % (0-12); NEUTROPHILS 73.2 % (39-80); PLATELET COUNT 915 K/uL (140-440); RBC 2.61 M/ul (4.3-5.7); RDW 14.8 (10.5-15.0)
--- NOTE | 2023-09-13 05:27 | NUR ---
PATIENT RESTING IN BED. VS AND I&Os OBTAINED AND RECORDED. PRN PAIN/FEVER MEDICATION ADMINISTERED. FRESH WATER PROVIDED. PATIENT APPEARS DROWSY. PRN BS OBTAINED AND RECORDED. BS WNL. PATIENT HAS NO FURTHER NEEDS AT THIS TIME. CALL LIGHT IN REACH.
[2023-09-13 05:41] LABS: ALBUMIN 1.7 g/dL (3.4-5.0); ALBUMIN/GLOBULIN RATIO 0.32 (1.1-2.4); ANION GAP 13.4 (7-21); BILIRUBIN, TOTAL 0.1 ng/dL (0.2-1.0); BUN/CREATININE RATIO 11.7 (6.0-28.6); CALCIUM 8.1 mg/dL (8.5-10.1); CREATININE, SERUM 0.94 mg/dL (0.70-1.30); POTASSIUM 4.4 mmol/L (3.5-5.1)
--- NOTE | 2023-09-13 07:01 | NUR ---
REPORT RECEIVED FROM DANIEL VALLADARES. PT. SITTING UP IN BED, EYES OPEN. REQUESTED A CUP OF COFFEE. CALL LIGHT WITHIN REACH. WANTS TO SPEAK WITH CASE MANAGMENT REGARDING DISCHARGE.
--- NOTE | 2023-09-13 07:34 | NUR ---
Letter to Heather at [facility] for Arian. September 13, 2023 Heather, Listed below are the contacts I have made to assist Arian Huang, [employer] [phone] [employer] [phone] [facility] Portrait Painter [phone] Noah Sales Audit Clerk Housing auth. [phone] [facility] assisted [phone] (managed by [facility]) [facility] [phone] Fax Sal and his mom have forms to update for housing through the [facility] authority.. Noah also faxed an Emergency housing form for the patient to complete. This would help to get a voucher to pay for a hotel for 30 days. I also spoke with Lawanda from [facility] in [place] if he still meets criteria for a SNF when he discharges from your program. Charly Romero
--- NOTE | 2023-09-13 07:54 | NUR ---
Notified by Rn caring for pt today, he is threatening to leave AMA. Encouraged her to call the and he can leave.
--- NOTE | 2023-09-13 07:59 | NUR ---
DID HRLY ROUNDING ON PT TOOK HIS BLOOD SUGAR IT WAS 118 AND NURSE WAS NOTIFIED AND IT WAS CHARTED. PT WANTS TO GO HOME AND WAS SAYING THAT HE WOULD SIGN TO GO HOME NOW. CHARGE NURSE WAS NOTIFED. PT DIDNT NEED ANYTHING ELSE FROM ME AND CALL LIGHT IS WITHIN REACH.
[2023-09-13 09:34] VITALS: BP 98/59
--- NOTE | 2023-09-13 09:45 | NUR ---
PT SITTING UP IN BED. BED BATH GIVEN. PT REPOSITIONED TO THE CHAIR. PT VERY TEARFUL WHILE TALKING ABOUT HIS LIFE. PT WOULD LIKE TO TALK TO . CALLED. PT STATING 8/10 PAIN IN TOP OF RIGHT THIGH. 10MG OF OXYCODONE ADMINISTERED AND PT REPOSITIONED. FULL LINEN CHANGE ONCE PT UP TO CHAIR. PT GIVEN SUGAR FREE HOT CHOCOLATE AND FRESH ICE WATER. CALL LIGHT WITHIN REACH. PT. DENIES ANY OTHER NEEDS AT THIS TIME.
[2023-09-13] MEDS ORDERED: MAGNESIUM CHLORIDE 64 MG TABCR PO ONE (10:30)
--- NOTE | 2023-09-13 10:41 | NUR ---
REFERRED BY NURSING STAFF; PT HAD REQUESTED SPIRITUAL CARE. UP ENTRY, PT EXPRESSED ANXIETY REGARDING UNCERTAINTY OF DISCHARGE, STATED DESIRE TO RETURN TO [place] WHERE SOME FAMILY MEMBERS LIVE, INTENTION TO LEAVE. AUTO REBUILDER PROVIDED SUPPORTIVE PRESENCE, ANXIETY CONTAINMENT, FACILITATED LIFE REVIEW, PROVIDED PRAYER, HOPSITALITY. EXITED ROOM WHEN PT'S MOTHER ARRIVED. PT AND MOTHER EXPRESSED GRATITUDE.
[2023-09-13 10:45] VITALS: BP 98/59
--- NOTE | 2023-09-13 11:06 | NUR ---
MD IN ROOM DISCUSSING PLAN OF CARE WITH PT AND PT MOTHER.
--- NOTE | 2023-09-13 11:11 | NUR ---
Advised by Andressa Nichols that she was called to the patient's room to assist him with his urinal. She states that he was performing the task correctly and he told her he was "done". She helped him take the urinal away and states that he then started to urinate again, urinating on himself and the bed.
--- NOTE | 2023-09-13 11:15 | NUR ---
Met with pt, his mom, Dr. Angulo, and nurse Juanita. Dr. Angulo discussed plan for IPR with pt and stating he wants to leave. I reviewed with him and mom everything I have discussed from different programs at [facility]. Reviewed the paper work for housing and also the Emergency Housing paperwork. Pt cont. to state he wants to discharge. He does not want to be here. I asked what his plan is and where he is going. Pt states he hasn't thought this through, but is leaving. Pt states, "Heather, I want to discuss my discharge." Dr Angulo agrees to discuss. Mom is tearful asking him to not leave. Pt is upset as [facility] does not have a bed open and is not willing to wait. I told them, I will let him and mom discuss plan. I returned to my office and called Margo at the [facility]. UPdated pt is now planning on dc today. I asked if their [facility] clinic could take over care of dressings for his amputation. She transferred me to Hiwot at [facility]. She will have the charge nurse call me back. She is unable to see if this pt has a PCP there. They do accept walk ins on MTW and Fri. They will take up to 10 walks ins. I will attempt to schedule pt for fu visit.
--- NOTE | 2023-09-13 12:00 | NUR ---
Spoke with pt to discuss discharge. Pt wanting to leave and return to [place]. [facility] and I can check if they will take him to the [facility] there. He will fu with [facility] for dressing changes and will be a walk in. I do have call into them, but have not received a return call. We discussed van transport and pt states he only has a transport chair and his scooter is at his moms and she is very upset. She did not want him to leave without going to [facility]. She is not answering his calls, I attempted to call and she did not answer my call either. Updated Dr. Angulo.
--- NOTE | 2023-09-13 12:05 | NUR ---
PT. IN CHAIR RESTING. BLANKET OVER HEAD. RESPIRATIONS EVEN AND UNLABORED. NO S/S OF PAIN/ DISTRESS. CALL LIGHT WITHIN REACH.
[2023-09-13] MEDS ORDERED: LEVOFLOXACIN750 MG PO (12:55)
[2023-09-13] MEDS ORDERED: OXYCODONE HCL5 MG PO (12:57)
[2023-09-13 12:59] LABS: RBC, LEUKOREDUCED 18212410593300D; RBC, LEUKOREDUCED 18212411132200P
--- NOTE | 2023-09-13 13:00 | NUR ---
Spoke with the senior living in [place] as pt is wanting to leave today. They scheduled pt a a 2pm appt for interview to check in. I returned to pts room with Dr. Angulo. Updated I held for 30 min with [facility] and was still on hold. My coworker is waiting for them to answer to check if they can transport.
--- NOTE | 2023-09-13 13:06 | NUR ---
PT RESTING IN CHAIR. ATE 100% OF LUNCH TRAY AND IS RESTING WITH BLANKET OVER HEAD. RESPIRATIONS EVEN AND UNLABORED. NO S/S OF PAIN/ DISTRESS. CALL LIGHT WITHIN REACH.
--- NOTE | 2023-09-13 13:15 | NUR ---
Called to speak with [facility] transport with 30 minute hold time. Was able to schedule pt for transport to [place] today. They will pick pt up 2:30 and 2:45. I spoke with Sal and he states he does not have his wc or scooter. I attempted to call his mom and no answer. I spoke with Gracie, data manager, of the floor and she will give pt a wc and slider board as he discharging to a [facility] in [place]. I returned and spoke with Sal and he confirms this is where he wants to go and he does not want to spend anymore time in [place] or go to the [facility]. Pt states he will go a place called the [facility] for wound care. Pt denies other needs. I will fax his chart to [facility] when I receive a return call from their nurses.
[2023-09-13 13:27] VITALS: BP 108/72
[2023-09-13 13:31] VITALS: BP 108/72
--- NOTE | 2023-09-13 14:30 | NUR ---
Received a call from the Charge nurse. She states pt's mother has called and wants the transport cancelled. Pt is outside getting ready to get on the van. I asked her to ask the pt what he wants and go with his wishes. She states he agreed to wait outside. Transport has not arrived and he will go with whoever arrives to transport him first. Mom is now stating she has gas money and will take him to [place].
--- NOTE | 2023-09-13 14:30 | NUR ---
ASSISTED PT TO TRANSFER TO WHEELCHAIR WITH SLIDEBOARD. DID QUITE WELL BY HIMSELF. LOADED ALL PERSONAL BELONGINGS AND WERE WHEELING PT OUT OF ROOM WHEN THE PHONE RANG. THIS RN ANSWERED FOR THE PT PER REQUEST AND IT WAS HIS MOTHER REQUESTING WE CANCEL THE VAN SHE WANTED TO TAKE HIM TO [place] HERSELF AND THAT SHE HAD PT'S ELECTRIC SCOOTER AND WOULD BRING IT TO HIM. PLACED HER ON HOLD AND ASKED THE PT WHAT HE WOULD LIKE TO DO. ADVISED PT THAT THE VAN WAS A SURE THING ON GETTING HIM TO [place] WHICH WAS THE GOAL HE HAD SET TODAY. HE SAID HIS MOTHER USUALLY DID WHAT SHE SAID BUT HE WAS STILL UNDECIDED SO TOLD MOTHER TO COME TO HOSPITAL AND HE WOULD DECIDE WHEN BOTH PARTIES GOT HERE. ONCE OUT FRONT HE DECIDED TO GO WITH HIS MOTHER. THE PAINTER'S TOLD THE VAN WHEN IT ARRIVED THAT WE WERE SORRY BUT THE PT HAD DECIDED TO GO ANOTHER ROUTE. MOTHER SHOWED UP AN HOUR RYAN LATER AND PT SLID HIMSELF INTO CAR.
--- NOTE | 2023-09-13 14:30 | NUR ---
PT WAS LEAVING ROOM TO DISCHARGE PATIENT'S MOTHER CALLED. MOTHER WANTED TO PICK HIM UP AND TRANSPORT HIM TO [place]. DANIEL PALACIOS TOOK THE PHONE CALL AND CALLED [facility] WITH DISCHARGE PLANNING AND HAD CONVERSATION WITH PT. REGARDING USING THE TRANSPORTATION SET UP OR HAVING HIS MOM TAKE HIM. HIS FINAL DECISION WAS TO HAVE HIS MOM TAKE HIM. PT. WHEELED OUT FRONT AND WAITING FOR HIS MOTHER.
--- NOTE | 2023-09-13 14:45 | NUR ---
Received a call from pts mother, Chichi. She states she is loading his scooter, wc, and other belongings and will be in to pick him up. She wants me to tell him he can't get on the van. I let her know he is 48 years old, I cannot tell him he cannot go. I let her know, he has not left at this time. She lives 15 minutes from town and states she is on her way. 1515 I called the charge nurse and updated, she states pt declined the wc van and they left. He has been waiting outside since 14:15.
--- NOTE | 2023-09-13 16:00 | NUR ---
Notified by staff, pt left with his mother.
== END 2023-09-13 14:35 | disposition home or self-care (01) | DRG 474 ==
LOC: ED 17:09 → MS 19:01 → CCU 19:01 → MS 09-06 15:10
PROVIDERS: Emergency Medicine; Internal Medicine; Specialist; ADMIT Family Medicine; ATTEND Family Medicine
PROC: 3E03329 Introduction of Other Anti-infective into Peripheral Vein, Percutaneous Approach (ICD-10-PCS; 2023-08-31)
PROC: 0Y6C0Z3 Detachment at Right Upper Leg, Low, Open Approach (ICD-10-PCS; principal; 2023-09-02 09:30)
PROC: 30233N1 Transfusion of Nonautologous Red Blood Cells into Peripheral Vein, Percutaneous Approach (ICD-10-PCS; 2023-09-03)
PROC: 0QBB0ZZ Excision of Right Lower Femur, Open Approach (ICD-10-PCS; 2023-09-05)
PROC: 0QBB0ZZ Excision of Right Lower Femur, Open Approach (ICD-10-PCS; 2023-09-07)
DX: T87.43 Infection of amputation stump, right lower extremity (principal); A41.01 Sepsis due to Methicillin susceptible Staphylococcus aureus; A41.89 Other specified sepsis; E87.1 Hypo-osmolality and hyponatremia; N17.9 Acute kidney failure, unspecified; M86.8X8 Other osteomyelitis, other site; Z16.29 Resistance to other single specified antibiotic; Z59.00 Homelessness unspecified; R19.7 Diarrhea, unspecified; F17.210 Nicotine dependence, cigarettes, uncomplicated; F43.10 Post-traumatic stress disorder, unspecified; F41.9 Anxiety disorder, unspecified; D69.6 Thrombocytopenia, unspecified; D63.8 Anemia in other chronic diseases classified elsewhere; E10.65 Type 1 diabetes mellitus with hyperglycemia; E10.69 Type 1 diabetes mellitus with other specified complication; F15.10 Other stimulant abuse, uncomplicated; I25.10 Atherosclerotic heart disease of native coronary artery without angina pectoris; E10.51 Type 1 diabetes mellitus with diabetic peripheral angiopathy without gangrene; E10.22 Type 1 diabetes mellitus with diabetic chronic kidney disease; N18.9 Chronic kidney disease, unspecified; F12.90 Cannabis use, unspecified, uncomplicated; M72.9 Fibroblastic disorder, unspecified; Z89.512 Acquired absence of left leg below knee; Z71.51 Drug abuse counseling and surveillance of drug abuser
CPT/HCPCS: 01232; 01360; 10060; 36415; 64445; 64447; 71045; 73030; 73560; 73723; 74178; 80048; 80053; 80307; 81001; 83036; 83605; 83735; 85025; 85060; 85610; 85730; 86140; 86850; 86900; 86901; 86922; 87040; 87045; 87046; 87070; 87075; 87077; 87186; 87205; 87493; 88307; 88309; 88311; 93005; 93010; 93306; 97032; 97110; 97162; 97166; 97530; 97535; 99285-25; A9270; A9579; J0131; J0692; J0780; J0878; J1170; J1450; J1644; J1815; J1885; J1940; J2001; J2250; J2405; J2470; J2704; J2795; J3010; J3230; J3475; J3480; J7030; J7121; P9016; Q9967

== ENCOUNTER 2024-05-18 15:30 | Inpatient (IN) | payer OTHER ==
[~2024-05-18] VITALS: Ht 152.4 cm; Wt 42.8 kg
[~2024-05-18 15:30] MED LIST changes: +IBUPROFEN400 MG PO; +LEVEMIR100 UNIT/1 SUB-Q; +LEVOFLOXACIN750 MG PO; +OXYCODONE HCL5 MG PO; +TYLENOL325 MG PO
--- OUTSIDE RECORDS SUMMARY | 2024-05-18 15:37 | XMS ---
PreManage Notification: MARCELLA FERGUSON Security Behavioral Therapy Coordinator Events No recent Security Events currently on file CRITERIA MET - 6 ED Visits in 6 Months - [facility] - 2 Visits in 30 Days - [facility] - 3 Facilities in 90 Days CARE PROVIDERS EMMA CASTRO Nurse Practitioner: Adult Health Current PHONE: [phone] ABHIJEET PARTIDA Physician Circular Ripsaw Operator Current PHONE: [phone] JASON ROBERTS Internal Medicine Current PHONE: [phone] [facility] Current PHONE: [phone] GALE GOMEZ Internal Medicine Current PHONE: Unknown Leonel Gallegos Nurse Practitioner: Psychiatric/Mental Health Current PHONE: [phone] Jonas Torres Psychiatry \T\ Neurology: Psychiatry Current PHONE: [phone] Rangel has no Care Guidelines for this patient. Jonathan VISIT COUNT (12 MO.) 3 [facility] 3 [facility] [address] [facility] TOTAL 10 NOTE: Visits indicate total known visits. ED/UCC VISIT TRACKING (12 MO.) 05/18/2024 15:30 [facility] TYPE: Emergency COMPLAINT: - [facility] INJUR[facility] COMPLAINT: - hypoglycemia 03/21/2024 13:43 [facility] TYPE: Emergency DIAGNOSES: - Hypoglycemia, unspecified - Pressure ulcer of unspecified site, unspecified stage - Unspecified severe protein-calorie malnutrition 02/09/2024 10:30 [facility] TYPE: Emergency DIAGNOSES: - Hypoglycemia, unspecified - Hypotension, unspecified 02/05/2024 12:22 [facility] TYPE: Emergency COMPLAINT: - WEAKNESS 11/29/2023 15:11 [facility] TYPE: Emergency COMPLAINT: - Infection 09/26/2023 04:09 [facility] [place] KAI TYPE: Emergency DIAGNOSES: - Anemia, unspecified - Homelessness unspecified - Myalgia, unspecified site - Other stimulant abuse, uncomplicated - Type 1 diabetes mellitus without complications 08/31/2023 17:09 [facility] [place] TYPE: Emergency COMPLAINT: - WOUND CHECK 08/29/2023 13:41 [facility] Lydia QUINN (Lydia Freeman) TYPE: Emergency DIAGNOSES: - Leg Pain (Non-traumatic) - Pain in Back 06/17/2023 13:31 [facility] [place] TYPE: Emergency COMPLAINT: - OD DIAGNOSES: - Essential (primary) hypertension - group home (current) use of insulin - Other stimulant abuse, uncomplicated - Type 1 diabetes mellitus without complications INPATIENT VISIT TRACKING (12 MO.) 03/21/2024 13:43 [facility] TYPE: Medical Surgical DIAGNOSES: - Hypoglycemia, unspecified - Pressure ulcer of unspecified site, unspecified stage - Unspecified severe protein-calorie malnutrition 02/09/2024 10:30 [facility] TYPE: Medical Surgical DIAGNOSES: - Hypoglycemia, unspecified - Hypotension, unspecified 12/01/2023 00:27 [facility] TYPE: Medical Surgical DIAGNOSES: - Acute hematogenous osteomyelitis, left femur - Bacteremia - Osteomyelitis, post-op concern 09/28/2023 00:41 [facility] TYPE: Surgical Services DIAGNOSES: - Cutaneous abscess, unspecified - Type 1 diabetes mellitus with other circulatory complications - Unspecified complications of amputation stump - Abscess 09/26/2023 04:09 [facility] TYPE: Medical Surgical DIAGNOSES: - Anemia, unspecified - Homelessness unspecified - Infection following a procedure, other surgical site, initial encounter - Myalgia, unspecified site - Other stimulant abuse, uncomplicated - Type 1 diabetes mellitus without complications 08/31/2023 19:01 [facility] Angulo TYPE: Medical Surgical COMPLAINT: - SEPSIS, RIGHT KNEE BURSITIS, OSTEOMYELITIS,HYPERGL DIAGNOSES: - Acquired absence of left leg below knee - Acquired absence of left leg below knee - Acute kidney failure, unspecified - Acute kidney failure, unspecified - Anemia in other chronic diseases classified elsewhere - Anemia in other chronic diseases classified elsewhere - Anxiety disorder, unspecified - Anxiety disorder, unspecified - Atherosclerotic heart disease of [place] coronary artery without angina pectoris - Atherosclerotic heart disease of [place] coronary artery without angina pectoris - Cannabis use, unspecified, uncomplicated - Cannabis use, unspecified, uncomplicated - Chronic kidney disease, unspecified - Chronic kidney disease, unspecified - Diarrhea, unspecified - Diarrhea, unspecified - Drug abuse counseling and surveillance of drug abuser - Drug abuse counseling and surveillance of drug abuser - Fibroblastic disorder, unspecified - Fibroblastic disorder, unspecified - Homelessness unspecified - Homelessness unspecified - Hypo-osmolality and hyponatremia - Hypo-osmolality and hyponatremia - Infection of amputation stump, right lower extremity - Infection of amputation stump, right lower extremity - Nicotine dependence, cigarettes, uncomplicated - Nicotine dependence, cigarettes, uncomplicated - Other osteomyelitis, other site - Other osteomyelitis, other site - Other specified sepsis - Other specified sepsis - Other stimulant abuse, uncomplicated - Other stimulant abuse, uncomplicated - Post-traumatic stress disorder, unspecified - Post-traumatic stress disorder, unspecified - Resistance to other single specified antibiotic - Resistance to other single specified antibiotic - Sepsis due to Methicillin susceptible Staphylococcus aureus - Sepsis due to Methicillin susceptible Staphylococcus aureus - Sepsis, unspecified organism - Thrombocytopenia, unspecified - Thrombocytopenia, unspecified - Type 1 diabetes mellitus with diabetic chronic kidney disease - Type 1 diabetes mellitus with diabetic chronic kidney disease - Type 1 diabetes mellitus with diabetic peripheral angiopathy without gangrene - Type 1 diabetes mellitus with diabetic peripheral angiopathy without gangrene - Type 1 diabetes mellitus with hyperglycemia - Type 1 diabetes mellitus with hyperglycemia - Type 1 diabetes mellitus with other specified complication - Type 1 diabetes mellitus with other specified complication [email or web address]
[2024-05-18] MEDS ORDERED: SODIUM CHLORIDE 0.9% 1,000 ML IV ONE (16:30)
[2024-05-18] MEDS ORDERED: HYDROmorphone HCL 1 MG/ML SYR IV ONE (16:30)
[2024-05-18 17:13] LABS: BASOPHILS 0.8 % (0-2); EOSINOPHILS 6.2 % (0-6); HEMATOCRIT 22.4 % (35.0-50.0); HEMOGLOBIN 7.3 g/dL (12.0-18.0); LYMPHOCYTES 39.5 % (24-44); MCH 28.2 (27-36); MCHC 32.8 g/dl (30-36); MONOCYTES 6.4 % (0-12); NEUTROPHILS 47.1 % (39-80); PLATELET COUNT 323 K/uL (140-440); RDW 16.4 (10.5-15.0)
[2024-05-18 17:38] LABS: ALBUMIN 2.1 g/dL (3.4-5.0); ALBUMIN/GLOBULIN RATIO 0.48 (1.1-2.4); ANION GAP 11.3 (7-21); BILIRUBIN, TOTAL 0.2 mg/dL (0.2-1.0); BUN/CREATININE RATIO 26.66 (6.0-28.6); CREATININE, SERUM 0.75 mg/dL (0.70-1.30); POTASSIUM 4.3 mmol/L (3.5-5.1); PROTEIN, TOTAL 6.5 g/dL (6.4-8.2)
[2024-05-18 22:11] LABS: ABO A; ANTIBODY SCREEN NEGATIVE; RH POSITIVE
[2024-05-18] MEDS ORDERED: ondansetron HCL 4 MG/2 ML VIAL IV PRN (23:45)
[2024-05-18] MEDS ORDERED: MORPHINE SULFATE 4 MG/ML VIAL IV PRN (23:45)
[2024-05-18] MEDS ORDERED: LACTATED RINGER'S 1,000 ML IV ONE (23:45)
[2024-05-18] MEDS ORDERED: ACETAMINOPHEN 325 MG TAB PO PRN (23:45)
[2024-05-19] VITALS (12 sets, daily range): BP systolic 86–143; BP diastolic 56–98
--- NOTE | 2024-05-19 01:10 | NUR ---
pt ARRIVED VIA STRETCHER AND TRANSFERED TO THE BED VIA SLIDE SHEET. ASSESSMENT AND ADMISSION DONE. SNACK PROVIDED. MALE PUREWICK PLACED ON pt. WATER REFRESHED. IV ASSESSED, WNL. pt DENIES ANY OTHER NEEDS AT THIS TIME. CALL LIGHT WITHIN REACH.
--- NOTE | 2024-05-19 02:55 | NUR ---
pt CALLED TO HAVE HIS BRIEF CHANGED. pt HAD A LOSE BM. PURE WICK CHANGED. ALLYVEN ON COCCYX WAS CHANGED DUE TO BEING SOILED WITH BM. pt DENIES ANY OTHER NEEDS AT THIS TIME. CALL LIGHT WITHIN REACH.
--- NOTE | 2024-05-19 04:59 | NUR ---
pt RESTING IN THE BED WITH EYES CLOSED. RR EVEN AND UNLABORED. CALL LIGHT WITHIN REACH.
[2024-05-19 05:20] LABS: BASOPHILS 1.1 % (0-2); EOSINOPHILS 10.8 % (0-6); HEMOGLOBIN 6.9 g/dL (12.0-18.0); LYMPHOCYTES 44.4 % (24-44); MCH 27.8 (27-36); MCHC 32.8 g/dl (30-36); MONOCYTES 4.4 % (0-12); NEUTROPHILS 39.3 % (39-80); PLATELET COUNT 320 K/uL (140-440); RBC 2.47 M/ul (4.3-5.7); RDW 16.5 (10.5-15.0)
[2024-05-19 05:39] LABS: ALBUMIN 1.9 g/dL (3.4-5.0); ALBUMIN/GLOBULIN RATIO 0.44 (1.1-2.4); ANION GAP 15.2 (7-21); BILIRUBIN, TOTAL 0.2 mg/dL (0.2-1.0); CREATININE, SERUM 0.64 mg/dL (0.70-1.30); POTASSIUM 4.2 mmol/L (3.5-5.1); PROTEIN, TOTAL 6.2 g/dL (6.4-8.2)
--- NOTE | 2024-05-19 06:18 | NUR ---
CLINICAL ASST AND RN OBTAINED VITALS AND I&O. PT HAD BM AND RN AND CLINICAL ASST CHANGED PT BREIF, CHUCKS PAD, AND PUREWICK. PUREWICK CANNISTER EMPITED. PT POSITIONED ONTO RIGHT SIDE. PT STATES NO FURTHER NEEDS AT THIS TIME. CALL LIGHT WITHIN REACH.
[2024-05-19] MEDS ORDERED: IBLOOD GLUCOSE TEST STRIP 1 EA TEST VI SCH ×2 (07:00→08:00)
[2024-05-19] MEDS ORDERED: Insulin Regular, Human 100 UNIT/ML ML SUB-Q SCH ×2 (07:00→08:00)
--- NOTE | 2024-05-19 07:28 | NUR ---
MORNING REPORT RECIEVED FROM DANIEL BATES. PT LAYING IN BED WITH EYES CLOSED CHEST RISE BILAT. PT DRESSINGS IN PLACE CDI. PT HAS NO CONCERNS AT THIS TIME CALL LIGHT IN REACH. PT WOUND PACKING SHEET SIGNED UPON SHIFT CHANGE.
--- NOTE | 2024-05-19 08:40 | NUR ---
PATIENT REPORTED BEING IN PAIN, DANIEL ORLANDO NOTIFIED. ICE WATER PROVIDED. NO OTHER CARES WERE REQUESTED. CALL LIGHT AND PERSONAL ITEMS WITHIN REACH.
--- NOTE | 2024-05-19 09:00 | NUR ---
PT DRESSING WAS SOILED. PT DRESSING CHANGE PERFORMED PER ORDERS. PT TOLERATED WELL.
[2024-05-19] MEDS ORDERED: HYDROmorphone HCL 1 MG/ML SYR IV PRN (09:45)
[2024-05-19] MEDS ORDERED: ondansetron HCL 4 MG/2 ML VIAL IV PRN (09:45)
[2024-05-19] MEDS ORDERED: ACETAMINOPHEN 325 MG TAB PO PRN (09:45)
[2024-05-19] MEDS ORDERED: PROCHLORPERAZINE EDISYLATE 10 MG/2 ML VIAL IV PRN (09:45)
[2024-05-19 09:54] LABS: TSH, 3RD GENERATION 1.158 uIU/mL (0.358-3.740)
--- NOTE | 2024-05-19 10:11 | CONS ---
[facility] [address], [place] [address] Signed DATE OF CONSULTATION: 05/19/2024 CHIEF COMPLAINT: Sacral pressure injury. HISTORY OF PRESENT ILLNESS: Arian is a 48-year-old gentleman who has been living in the [place], [place] area in an apartment supplied through the [facility]. Apparently his father lived in that area. He said his father just recently . 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 He said he can get around on a scooter and sometimes he takes the bus or his friends help get him around. He ended up in the hospital there in [place], [place] and apparently spent quite some time there with his pressure injuries, particularly the one over the sacrum. It sounds like he was taken to surgery and debrided. He had made improvements and he tells me that his mother came from [place], [place] to take him back home to [place], [place]. How they felt they could proceed on a practical basis at the house I do not know. He has been going to [facility] for his wound care. There was concern that there was stool coming through his sacral pressure injury that he might have a colocutaneous fistula. He was therefore sent to our local emergency room yesterday. I have been contacted by the ER doctor with respect to the above. We were hoping we could get him to a higher level of care given the complexity of his current situation. That is not available currently, so I was asked to admit him as a general surgeon on-call. He has done well overnight. He said his blood pressure always runs a little low. He is very hungry and always asking for food. He said he quit meth for the most part three months ago. His memory is not the best and he is unable to fill in many details. He could not even tell me why his legs were amputated. He thinks he injured one leg and got infection. PAST MEDICAL HISTORY: 1. Headaches. 2. Type 1 diabetes. 3. Hypertension. 4. Malnutrition. PAST SURGICAL HISTORY: Includes 1. Right AKA. 2. Left BKA. 3. Debridement of a sacral pressure injury. SOCIAL HISTORY: He does not smoke or drink to my knowledge, but he does use methamphetamines. He thinks he quit for the most part three months ago, but particularly last week. We know he has Electronically Signed By: FABIAN ARREAGA MD 05/19/24 1011 PATIENT NAME: ARIAN FERGUSON CONSULTATION DATE OF : 75 REPORT #: [id number] PHYSICIAN: FABIAN ARREAGA MD PCP: NO PRIMARY CARE PHYSICIAN REPORT IS CONFIDENTIAL AND NOT TO BE RELEASED WITHOUT AUTHORIZATION [address] [address] Signed been admitted to [facility] in the past because they had radiographic studies for him. He goes to the [facility] locally for his general care. Chichi Yañez is his mother at [phone]. FAMILY HISTORY: He told me his dad just recently. He is not able to tell me why his father . REVIEW OF SYSTEMS: We did our best to review 10 systems with Arian, but his memory is very poor. We will try to track down some of his records from [place], [place]. ALLERGIES: None. MEDICATIONS: 1. Levofloxacin. 2. Oxycodone. 3. Loperamide. 4. Artificial Tears. 5. Lisinopril. 6. Tylenol. 7. Insulin. PHYSICAL EXAMINATION: VITAL SIGNS: Blood pressure is 98/67, his heart rate is 83, his respiratory rate is 18, his temperature is 98.6. He is 100% on room air. He is 5 feet tall at 42 kg with a body mass index of 18. GENERAL: Arian is a 48-year-old gentleman, lying supine semi-recumbent in his hospital bed, watching TV. He has already eaten a full breakfast. He is asking for more food. He is in no acute distress. He is alert, awake and interactive. He is a poor historian. LUNGS: Clear to auscultation bilaterally. HEART: Regular rate and rhythm without murmurs. ABDOMEN: Soft and flat. He is nontender. He has various pressure injuries and we took the dressing off the sacrum. I looked at the pictures for his other pressure injuries. He has just come out of the hospital over in [place], [place]. All his injuries are quite clean and granulating quite nicely. He does have stool around his anal area in his gluteal crease just from lying in the bed. There is no stool in his sacral pressure injury. LABORATORY DATA: His white blood cell count is 6.2, hemoglobin 6.9, neutrophils 39, his platelets 320, creatinine 0.64, his blood sugar is 147, alkaline phosphatase 173. CRP is a little up at 3.31. His sedimentation rate is normal at 87, albumin is 1.9. His lactic acid is Electronically Signed By: FABIAN ARREAGA MD 05/19/24 1011 PATIENT NAME: ARIAN FERGUSON CONSULTATION DATE OF : 75 REPORT #: [id number] PHYSICIAN: FABIAN ARREAGA MD PCP: NO PRIMARY CARE PHYSICIAN REPORT IS CONFIDENTIAL AND NOT TO BE RELEASED WITHOUT AUTHORIZATION [facility] [address], [place] [address] Signed 0.5. RADIOGRAPHIC STUDIES: CT scan of abdomen and pelvis shows the right gluteal/coccygeal pressure injury. There is no obvious fistula. ASSESSMENT AND PLAN: Arian is a 48-year-old gentleman with multiple chronic issues, namely methamphetamine abuse and bilateral amputations of his legs. He now has multiple pressure injuries. He has just come out of the hospital in [place], [place] and is actually probably the best shape he has been in for a long time. He is quite cachectic and malnourished. Although he is very willing to eat and is asking for snacks. I think he understands he can possibly take care of himself in an apartment. I cannot imagine his mother will be able to take care of him by herself as well. He understands he really needs nursing level care particular for his wounds. He needs help bathing and transferring him so forth. At this point, we are going to have our medical service come see him as well. I think we could put him through a bowel prep today and consider doing his upper and lower endoscopy tomorrow to make sure there is nothing with respect to his anemia. It may all be based on his rather severe malnutrition and then after that we will plan on have our case management team see him. Today is Tuesday and it will be several days if not weeks before we can find adequate placement for him. He has expressed understanding, agrees above plan. Fabian Arreaga MD ALB/MODL /[id number] cc: Fabian Arreaga MD [facility] Copies: FABIAN ARREAGA MD [facility] ~ Electronically Signed By: FABIAN ARREAGA MD 05/19/24 1011 PATIENT NAME: ARIAN FERGUSON CONSULTATION DATE OF : 75 REPORT #: [id number] PHYSICIAN: FABIAN ARREAGA MD PCP: NO PRIMARY CARE PHYSICIAN REPORT IS CONFIDENTIAL AND NOT TO BE RELEASED WITHOUT AUTHORIZATION
--- NOTE | 2024-05-19 10:13 | NUR ---
[facility] CALLED TO REQUEST RECORDS PER DR ORDER.
[2024-05-19] MEDS ORDERED: DEXTROSE 50% 50 ML SYR IV PRN ×2 (10:15)
[2024-05-19] MEDS ORDERED: GLUCAGON,HUMAN RECOMBINANT 1 MG/ML VIAL SUB-Q PRN (10:15)
[2024-05-19] MEDS ORDERED: IBLOOD GLUCOSE TEST STRIP 1 EA TEST XX PRN (10:15)
[2024-05-19] MEDS ORDERED: DEXTROSE 5% 1,000 ML IV PRN (10:15)
[2024-05-19] MEDS ORDERED: INSULIN GLARGINE-YFGN 100 UNIT/ML ML SUB-Q SCH (10:15)
[2024-05-19 10:16] LABS: IS CROSSMATCH COMPATIBLE
[2024-05-19] MEDS ORDERED: INSULIN LISPRO 100 UNIT/ML ML SUB-Q SCH (12:00)
[2024-05-19] MEDS ORDERED: IBLOOD GLUCOSE TEST STRIP 1 EA TEST XX SCH (12:00)
--- NOTE | 2024-05-19 12:04 | NUR ---
BLOOD ADMINISTRATION BEGINS 1139 WITH THIS RN AND DARION SWARTZ RN. 15 MINUTE VS COMPLETED BY THIS RN AT 1204. PATIENT RESTING IN BED WITH EYES CLOSED, RR EVEN AND UNLABORED, NO COMPLAINTS OF PAIN, DISCOMFORT, ITCHINESS, OR SOB. BLOOD ADMINISTRATION RATE INCREASED AT THIS TIME. PATIENT HAS NO REQUESTS, CALL LIGHT AND PERSONAL BELONGINGS IN REACH.
--- NOTE | 2024-05-19 12:08 | NUR ---
PATIENT IS CURRENTLY RESTING IN BED. DANIEL REYNA IN ROOM MONITORING BLOOD TRANSFUSION. BLOOD SUGAR CHECKED AND REPORTED TO DANIEL ORLANDO. A WARM BLANKET WAS PROVIDED. NO OTHER CARES WERE REQUESTED.
--- NOTE | 2024-05-19 12:38 | NUR ---
PT LAYING IN BED, PT HAS NO CURRENT COCNERNS AT THIS TIME. PT SITTING UP IN BED EATING LUNCH.
[2024-05-19] MEDS ORDERED: AMOX TR-K CLV1 EAC1 PO (13:13)
[2024-05-19] MEDS ORDERED: DOXYCYCLINE HY100 M3 PO (13:13)
[2024-05-19] MEDS ORDERED: DIPHENOXYLATE-1 EACH PO (13:20)
[2024-05-19] MEDS ORDERED: HYDROCODON-ACE1 EA11 PO (13:21)
--- NOTE | 2024-05-19 14:07 | NUR ---
MD LAMAR CONTACTED AT 1332 DUE TO PT CONTINUEING TO HAVE LARGE WATER LIKE BMS. MD LAMAR RECOMENDED A RECTAL TUBE TO BE PLACE, PT GAVE PERMISSION. RECTAL TUBE WAS PLACE WITHOUT ANY ISSUES, PT IS TOLERATING TREATMENT WELL. PT HAS CALL LIGHT IN REACH.
--- NOTE | 2024-05-19 14:35 | NUR ---
PATIENT ASKED FOR CLEAN UP ASSIST. 3PA FOR BRIEF CHANGE. A NEW PUREWICK WAS PLACED AT 1400. DANIEL ORLANDO CHANGED PATIENT'S BANDAGES. RN'S ADAN AND DARION INSERTED A RECTAL TUBE. BED LINENS WERE CHANGED AND A CLEAN GOWN PROVIDED. WARM BLANKETS REQUESTED. CALL LIGHT AND PERSONAL ITEMS ARE WITHIN REACH. FAMILY ENTERED ROOM TO VISIT.
--- NOTE | 2024-05-19 15:29 | NUR ---
1 UNIT OF PRBC'S INFUSION COMPLETE, PT HAS NO COMPLAINTS AT THIS TIME. PT POST INFUSION VITALS COMPLETED. PT HAS FAMILY IN ROOM AND CALL LIGHT IN REACH.
--- NOTE | 2024-05-19 17:50 | NUR ---
PT LAYING IN BED, PT STATES DILAUDED HELPED WITH PAIN AND HAS NO CURRENT CONCERNS AT THIS TIME PT HAS CALL LIGHT IN REACH WITH RECTAL TUBE IN PLACE.
--- NOTE | 2024-05-19 18:04 | NUR ---
PT LAYING IN BED, PT HAS EYES CLOSED, AND CHEST RISE EQUAL BILAT. PT HAS CALL LIGHT IN REACH.
--- NOTE | 2024-05-19 19:39 | NUR ---
REPORT RECEIVED FROM DAY SHIFT RN. PT LYING IN BED RESTING WITH EYES CLOSED. RESPIRATIONS EVEN. CALL LIGHT IN REACH.
[2024-05-19] MEDS ORDERED: OXYCODONE HCL 5 MG TAB PO PRN (19:45)
--- NOTE | 2024-05-19 20:00 | NUR ---
CALL LIGHT ON, IN TO ASSIST PT WITH HIS TV CHANNEL, TOOK VS, PT BP WAS SOFT, RN INFORMED AND IN TO SEE PT
[2024-05-19] MEDS ORDERED: LACTATED RINGER'S 1,000 ML IV ONE (20:15)
--- NOTE | 2024-05-19 20:20 | NUR ---
IN WITH MULTI SLIDE MACHINE TENDER FOR INCONT STOOL CARES, NEW SHERRY, BRIEF, DRAW SHEET IN PLACE, PT LOGGED ROLLED AND POSITIONED SELF TO LAYING ON LEFT SIDE, BED ALARM SET
--- NOTE | 2024-05-19 21:00 | NUR ---
URINE CONTAINER EMPTIED, NEW RECTAL TUBE COLLECTION BAG IN PLACE, ALL OUTPUT ACCOUNTED FOR, ACCU-CHECK COMPLETED WELL, RN INFORMED OF RESULT
--- NOTE | 2024-05-19 21:15 | NUR ---
EVENING ASSESSMENT COMPLETE. BLOOD SUGAR WNL, SSI HELD. PT REPORTS MARGARITA AREA/COCCYX PAIN /. PRN FOR PAIN ADMIN PER EMAR. IVF BOLUS INFUSING WNL. RECTAL TUBE AND MALE PUREWICK IN PLACE AND PATENT. DRESSINGS ON COCCYX CDI. BARRIER CREAM APPLIED TO EXCORIATED MARGARITA AREA. PT REPOSITIONING SELF IN BED. PT DENIES QUESTIONS OR CONCERNS. CALL LIGHT IN REACH.
--- NOTE | 2024-05-19 23:21 | NUR ---
PT RESTING IN BED WITH EYES CLOSED. RESPIRATIONS EVEN. CALL LIGHT IN REACH.
[2024-05-20] VITALS (9 sets, daily range): BP systolic 96–127; BP diastolic 57–89
--- NOTE | 2024-05-20 01:32 | NUR ---
PT RESTING IN BED WITH EYES CLOSED. RESPIRATIONS EVEN. CALL LIGHT IN REACH.
--- NOTE | 2024-05-20 03:02 | NUR ---
PT IN BED RESTING WITH EYES CLOSED LYING ON LEFT SIDE. RESPIRATIONS EVEN. CALL LIGHT IN REACH.
--- NOTE | 2024-05-20 04:25 | NUR ---
PT RESTING IN BED WITH EYES CLOSED. RESPIRATIONS EVEN. CALL LIGHT IN REACH.
[2024-05-20 05:22] LABS: BASOPHILS 1.4 % (0-2); HEMATOCRIT 24.3 % (35.0-50.0); HEMOGLOBIN 8.2 g/dL (12.0-18.0); LYMPHOCYTES 38.6 % (24-44); MCH 28.6 (27-36); MCHC 33.8 g/dl (30-36); MCV 84.6 fl (81-99); MONOCYTES 5.3 % (0-12); NEUTROPHILS 45.7 % (39-80); PLATELET COUNT 320 K/uL (140-440); RBC 2.88 M/ul (4.3-5.7)
[2024-05-20 05:40] LABS: ALBUMIN 1.9 g/dL (3.4-5.0); ALBUMIN/GLOBULIN RATIO 0.42 (1.1-2.4); ANION GAP 12.8 (7-21); BILIRUBIN, TOTAL 0.3 mg/dL (0.2-1.0); BUN/CREATININE RATIO 35.71 (6.0-28.6); CALCIUM 8.5 mg/dL (8.5-10.1); CREATININE, SERUM 0.7 mg/dL (0.70-1.30); MAGNESIUM 1.5 mg/dL (1.8-2.4); PHOSPHORUS, INORGANIC 2.8 mg/dL (2.5-4.9); POTASSIUM 4.8 mmol/L (3.5-5.1); PROTEIN, TOTAL 6.4 g/dL (6.4-8.2)
[2024-05-20] MEDS ORDERED: LIDOCAINE 2% VISCOUS 6 ML SYR TOP ONE (06:00)
--- NOTE | 2024-05-20 07:10 | NUR ---
PT UNABLE TO VOID. BLADDER SCANNED FOR APPROX 600 ML. NOTIFIED. NEW TELEPHONE ORDERS RECEIVED VERIFIED WITH READBACK METHOD. STRAIGHT CATH DONE FOLLOWING STERILE PROCEDURE WITH IMMEDIATE RETURN OF 400 ML YELLOW URINE. PT LONG WELL. NEW MALE PUREWICK PLACED. CHEESE AND CRACKERS PROVIDED. NO FURTHER NEEDS.
--- NOTE | 2024-05-20 07:20 | NUR ---
MORNING REPORT RECIEVED FROM DANIEL TOLBERT. PT LAYING IN BED WITH EYES CLOSED CHEST RISE EQUAL BILAT. PT HAS CALL LIGHT IN REACH.
--- NOTE | 2024-05-20 08:08 | NUR ---
HOURLY ROUNDING. BOARD HAS BEEN UPDATED AND CALL LIGHT HAS BEEN PLACED WITHIN REACH
[2024-05-20] MEDS ORDERED: propofoL 200 MG/20 ML VIAL ONE (08:27)
[2024-05-20] MEDS ORDERED: MAGNESIUM SULFATE 2 GM/50 ML BAG IV SCH (09:00)
--- NOTE | 2024-05-20 11:30 | NUR ---
PT LAYING IN BED, PT WORKED WITH PT TODAY AND WAS INSTRUCTED TO WORK ON HIP BRIDGES AND SITTING UP. PT COMPLAINED OF PAIN 8-10 AND WAS GIVEN PRN OXY (SEE EMAR). PT MOTHER IS CURRENTLY IN ROOM AND PT HAS NO CONCERNS AT THIS TIME CALL LIGHT IN REACH.
[2024-05-20 12:52] LABS: FOLATE,SERUM 11.1 ng/mL (>=5.9)
--- NOTE | 2024-05-20 13:00 | NUR ---
PT LAYING IN BED, RECTAL TUBE IN PLACE WITH MINIMAL LEAKAGE. PT HAS EYES CLOSED CHST RISE EQUAL BILAT. CALL LIGHT IN REACH.
--- NOTE | 2024-05-20 13:58 | NUR ---
MED REC COMPLETE
--- NOTE | 2024-05-20 14:40 | NUR ---
PT LAYING IN BED, PT AWAKE AND ALERT, PT HAS NO COCNERNS OF PAIN AT THIS TIME AND ROTATED. PT HAS CALL LIGHT IN REACH.
--- NOTE | 2024-05-20 15:24 | NUR ---
PT CURRENTLY LAYING IN BED WITH EYES CLOSED CHEST RISE EQUAL BILAT, PT HAS CALL LIGHT IN REACH.
--- NOTE | 2024-05-20 15:40 | NUR ---
PT LAYING IN BED, PT STATES SHE FEELS BETTER AFTER BOWEL MOVEMENT. PT TEMPLATE STORAGE CLERK IN ROOM AND BEING HELPFUL TO ENCOURAGE PT TO TAKE MADICATIONS. PT HAS CALL LIGHT IN REACH.
--- NOTE | 2024-05-20 15:52 | NUR ---
RECTAL TUBE IN PLACE. PT HAS NO COCNERNS AT THIS TIME. STOOL STILL LOOSE PENDING STOOL CULTURE.
--- NOTE | 2024-05-20 17:39 | NUR ---
PT LAYING IN BED, PT ATE ALL THEIR DINNER AND HAS NO CURRENT COCNCERNS AT THIS TIME. PT RECTAL TUBE IN PLACE AND CALL LIGHT IN REACH.
--- NOTE | 2024-05-20 18:31 | NUR ---
PT LAYING IN BED, PT HAS NO CURRENT CONCERNS AT THIS TIME. PT HAS NO PAIN RECTAL TUBE IN PLACE AND DRESSING IS CDI. PT HAS CALL LIGHT IN REACH.
--- NOTE | 2024-05-20 19:19 | NUR ---
REPORT RECEIVED FROM DAY SHIFT RN. PT LYING IN BED RESTING WITH EYES CLOSED. RESPIRATIONS EVEN. CALL LIGHT IN REACH.
[2024-05-20 20:23] LABS: IRON BINDING CAPACITY TOTAL 170 ug/dL (240-450); IRON,SERUM OR PLASMA 12 ug/dL (45-182); TRANSFERRIN SATURATION 7 %sat (20-50)
--- NOTE | 2024-05-20 20:56 | NUR ---
EVENING ASSESSMENT COMPLETE. PT REPORTS SACRAL/MARGARITA AREA PAIN 10/24. PRN FOR PAIN ADMIN PER EMAR. RECTAL TUBE IN PLACE WITH SLIGHT LEAKING NOTED. MARGARITA CARE DONE. BARRIER CREAM APPLIED. NEW ATTENDS IN PLACE. MALE PUREWICK PATENT WITH QS CLEAR YELLOW URINE. SACRAL DRESSING CDI. 2PA TO REPOSITION IN BED. PT DENIES FURTHER NEEDS. CALL LIGHT IN REACH.
--- NOTE | 2024-05-20 22:39 | NUR ---
PT RESTING IN BED WITH EYES CLOSED. RESPIRATIONS EVEN. CALL LIGHT IN REACH.
--- NOTE | 2024-05-20 23:37 | NUR ---
PT LYING ON LEFT SIDE RESTING WITH EYES CLOSED. RESPIRATIONS EVEN. CALL LIGHT IN REACH.
[2024-05-21] VITALS (9 sets, daily range): BP systolic 97–101; BP diastolic 54–69
[2024-05-21 01:13] LABS: FERRITIN 402 ng/mL (30-400)
--- NOTE | 2024-05-21 01:50 | NUR ---
PT AWAKE IN BED EATING SNACKS. NO C/O PAIN AT THIS TIME. PT REPOSITIONED SELF TO RIGHT SIDE. WARM BLANKETS PROVIDED. RECTAL TUBE AND MALE PUREWICK PATENT. NO FURTHER NEEDS. CALL LIGHT IN REACH.
--- NOTE | 2024-05-21 03:52 | NUR ---
PT RESTING IN BED WITH EYES CLOSED. RESPIRATIONS EVEN. CALL LIGHT IN REACH.
--- NOTE | 2024-05-21 06:36 | NUR ---
PT RESTING IN BED. AWAKENS EASILY. PLEASANT AND COOPERATIVE WITH CARES THIS AM. NEW PUREWICK PLACED AFTER MARGARITA CARE. SMALL AMOUNT LEAKAGE NOTED FROM RECTAL TUBE. MARGARITA CARE DONE. BARRIER CREAM APPLIED. NEW ATTENDS IN PLACE. 2PA TO REPOSITION IN BED. WARM BLANKETS PROVIDED. PT REPORTS PAIN MARGARITA AREA/SACRAL PAIN 10/24. PRN FOR PAIN ADMIN PER EMAR. NO FURTHER NEEDS. CALL LIGHT IN REACH.
--- NOTE | 2024-05-21 07:15 | NUR ---
MORNING REPORT RECIEVED FROM DANIEL TOLBERT. PT CURRENTLY LAYING IN BED WITH EYES CLOSED CHEST RISE EQUAL BILAT. PT HAS RECTAL TUBE IN PLACE AND CALL LIGHT IN REACH.
[2024-05-21 07:19] LABS: BASOPHILS 0.9 % (0-2); HEMATOCRIT 25.3 % (35.0-50.0); HEMOGLOBIN 8.5 g/dL (12.0-18.0); LYMPHOCYTES 34.3 % (24-44); MCH 28.3 (27-36); MCHC 33.5 g/dl (30-36); MCV 84.7 fl (81-99); MONOCYTES 5.6 % (0-12); NEUTROPHILS 53.2 % (39-80); PLATELET COUNT 343 K/uL (140-440); RBC 2.99 M/ul (4.3-5.7); RDW 16.5 (10.5-15.0)
[2024-05-21 07:41] LABS: ANION GAP 15.9 (7-21); BUN/CREATININE RATIO 38.27 (6.0-28.6); CREATININE, SERUM 0.81 mg/dL (0.70-1.30); MAGNESIUM 1.8 mg/dL (1.8-2.4); POTASSIUM 4.9 mmol/L (3.5-5.1)
--- NOTE | 2024-05-21 08:34 | NUR ---
PT SITTING UP IN BED, PT HAS NO PAIN AT THIS TIME AND IS COMFORTABLE AT THIS TIME. PT MOTHER IS IN ROOM AND HOPING TO SPEAK WITH CM AT SOMETIME TODAY. PT HAS NO CONCERNS AT THIS TIME AND HAS CALL LIGHT IN REACH.
[2024-05-21] MEDS ORDERED: INSULIN GLARGINE-YFGN 100 UNIT/ML ML SUB-Q SCH (09:01)
[2024-05-21] MEDS ORDERED: CYANOCOBALAMIN 1,000 MCG TAB PO SCH (09:07)
[2024-05-21] MEDS ORDERED: ferumoxytoL 510 MG in SODIUM CHLORIDE 0.9% 100 ML IV ONE (09:15)
--- NOTE | 2024-05-21 10:15 | NUR ---
ATTEMPT TO SEE PATIENT, WOUND CARE BEING COMPLETED. WILL RETURN.
--- NOTE | 2024-05-21 10:15 | NUR ---
UR CLINICAL REVIEW: MEGAN-PER MCG REVIEW MEETS INPT FOR SACRAL [facility]ER WITH NEED FOR WOUND CARE [facility] INPT 05/19/24 @ 0940 ORDER MATCHES [facility] FAXED TO [facility] FOR AUTH REVIEW DISCHARGE DISPO PENDING FURTHER EVALUATION AND TREATMENT 05/22/24
--- NOTE | 2024-05-21 10:30 | NUR ---
PT RECTAL TUBE DID NOT CONTAIN PT BM. PT RECIEVED FULL BED CHANGE, BED BATH, AND ALL DRESSINGS CHANGED VIA WOUND CARE ORDERS, NEW PACKING APPLIED TO WOUND. PT ALSO RECIEVED BARRIER CREAM TO ALL RED AREAS ON MARGARITA AREA. PT ROTATED AND PSITIONED ON RIGHT SIDE AND HAS NO COCNERNS AT THIS TIME. PT IS NOW SPEAKING WITH [facility]. PT CALL LIGHT IN REACH.
--- NOTE | 2024-05-21 11:15 | NUR ---
ATTEMPT TO SEE PATIENT, CURRENTLY INTERVIEWING WITH [employer] WORKER.
--- NOTE | 2024-05-21 11:41 | NUR ---
PT LAYING IN BED, PT REPOSITIONED AND IS COMFORTABLE AT THIS TIME. PT SPOKE WITH [employer] WHILE MOTHER WAS IN ROOM AND SOUNDS LIKE THEY WILL BE ABLE TO HELP HIM POSSIBLY GET A WHEELCHAIR THAT HE CAN OPPERATE. PT HAS CALL LIGHT IN REACH AND NOT CURRENT CONCERNS AT THIS TIME.
--- NOTE | 2024-05-21 11:55 | NUR ---
PT LAYING IN BED, PT COMPLAINED OF PAIN 8-10 ANND RECIEVED PRN OXY (SEE EMAR). PT HAS NO OTHER CONCERNS AT THIS TIME CALL LIGHT IN REACH.
--- NOTE | 2024-05-21 11:55 | NUR ---
ALERT AND ORIENTED IN BED. PATIENT CURRENTLY LIVES IN HOUSE WITH MOTHER. STATES HE HAS A SCOOTER FOR MOBILITY, MOTHER HAS SHOWER CHAIR AND STATES HE HAS "TRANSPORT CHAIR." STATES HE HAS NO OTHER DME. MOTHER PROVIDES MAJORITY OF TRANSPORT. HE HAS NO PCP, BUT WOULD LIKE TO BE SEEN AT [facility] FOR HIS PCP. HE BECOMES AGITATED AND RAISES HIS VOICE TO STAFF WHEN ASKING QUESTIONS AND DISCUSSING HIS CARE NEEDS AND NEED TO PARTICIPATE IN HIS MEDICAL CARE. STATES HIS DAD JUST AND HE HASN'T BEEN ABLE TO MAKE DECISIONS. 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 THEY WERE IN INTERVIEWING PATIENT THIS MORNING. STATES HE DOES NOT WANT TO GO TO ANOTHER FACILITY. STATES HIS PREFERENCE IS TO DC TO HOME WITH HIS MOTHER WHEN MEDICALLY STABLE. STATES HE WOULD LIKE HOME HEALTH SINCE IT IS VERY DIFFICULT TO GET OUT OF THE HOUSE. STATES HE DOES NOT WANT TO PARTICIPATE IN THERAPY TODAY DUE TO HAVING TOO MANY PEOPLE IN HIS ROOM, WANTING A BREAK AND HURTING TOO MUCH. ALSO STATES HE DOES NOT WANT TO MAKE WOUNDS WORSE WITH MOVEMENT. PT, AGGIE, ATTEMPTS TO EDUCATE PATIENT ABOUT IMPORTANCE OF MOVEMENT TO ASSIST WITH WOUND HEALING, PATIENT ROLLS HIS EYES WHEN EDUCATION IS BEING PROVIDED. HE STATES HE WILL NOT GO TO [place] OR ANYWHERE ELSE OUT OF TOWN FOR REHAB. HE IS NOT INTERESTED, AT THIS POINT, IN ANY TYPE OF PLACEMENT. WILL RETURN TO FURTHER DISCUSS DC PLAN WITH PATIENT WHEN HE IS LESS AGITATED.
--- NOTE | 2024-05-21 12:57 | NUR ---
PT LAYING IN BED WITH EYES CLOSED CHEST RISE EQUAL BILAT. PT HAS CALL LIGHT IN REACH.
--- NOTE | 2024-05-21 13:04 | NUR ---
PT RETAL TUBE IN PLACE. PT HAS CONTINUED TO HAVE LARGE QUINITIES OF LOOSE/LIQUID STOOLS. PT CONTINUES TO TOLERATE RECTAL TUBE WELL.
--- NOTE | 2024-05-21 14:54 | NUR ---
PT NOT AVAILABLE FOR VISIT. PROVIDED PRAYER.
--- NOTE | 2024-05-21 14:56 | NUR ---
PT LAYING IN BED, PT HAS NO CONCERNS AT THIS TIME AND DENIES NEEDS FOR PAIN MEDICATION AT THIS TIME. PT HAS CALL LIGHT IN REACH.
--- NOTE | 2024-05-21 15:56 | NUR ---
PT LAYING IN BED ON THEIR RIGHT SIDE, PT RECIEVED BED BATH FROM WIRE TWISTER, AND DENIES NEED FOR PAIN MEDICATION AT THIS TIME. PT MOTHER IS IN ROOM AND IS SITTING BEDSIDE. PT HAS CALL LIGHT IN REACH AND NO CURRENT CONCERNS AT THIS TIME.
--- NOTE | 2024-05-21 17:51 | NUR ---
PT SITTING UP IN BED EATING DINNER. PT RECTAL TUBE IN PLACE, PT IS COMFORTABLE AND DENIES NEED FOR PAIN MEDICATION. PT HAS CALL LIGHT IN REACH.
--- NOTE | 2024-05-21 18:59 | NUR ---
PT RECTAL TUBE CLAMP BROKE NEW RECTAL TUBE NEEDED TO BE INSERTED, MD SANDHU WAS CONTACTED DUE TO PT RECTAL TUBE CLOGGIN WITH UNDIGESTED FOOD. MD SANDHU GAVE VERBAL ORDERS TO REINSERT RECTAL TUBE. PT TOLERATED WELL BUT DOES COMPLAIN OF MODERATE DISCORFORT AT THIS TIME PT CALL LIGHT IN REACH AND INFORMATION WILL BE RELAYED TO REFERENCE SERVICES HEAD RN.
--- NOTE | 2024-05-21 19:34 | NUR ---
REPORT RECEIVED FROM DAY SHIFT RN. PT LYING IN BED ALERT AND ORIENTED. REPORTS PAIN 10/10. PRN FOR PAIN ADMIN PER EMAR. NO FURTHER NEEDS. WHITE BOARD UPDATED. CALL LIGHT IN REACH.
--- NOTE | 2024-05-21 21:36 | NUR ---
EVENING ASSESSMENT COMPLETE. BLOOD SUGAR WNL. SLIDING SCALE INSULIN HELD. NO C/O PAIN OR NAUSEA AT THIS TIME. VS AND I&O OBTAINED. MALE PUREWICK AND RECTAL TUBE PATENT. SACRAL DRESSING CDI. DRESSING REPLACED ON RIGHT STUMP. 2PA TO REPOSITION IN BED. PT DENIES QUESTIONS OR CONCERNS. CALL LIGTH IN REACH.
--- NOTE | 2024-05-21 23:34 | NUR ---
PT REPORTS SACRAL/MARGARITA AREA PAIN 10/10. PRN FOR PAIN ADMIN PER EMAR. PT REPOSITIONED WITH PILLOW UNDER RIGHT HIP. NO FURTHER NEEDS.
[2024-05-22] VITALS (7 sets, daily range): BP systolic 91–109; BP diastolic 53–89
--- NOTE | 2024-05-22 01:27 | NUR ---
PT RESTING IN BED WITH EYES CLOSED. RESPIRATIONS EVEN. CALL LIGHT IN REACH.
--- NOTE | 2024-05-22 03:50 | NUR ---
PT AWAKE IN BED. MALE PUREWICK PATENT WITH 900 ML CLEAR YELLOW URINE. ASSISTED TO REPOSTION TO RIGHT SIDE. NO C/O PAIN AT THIS TIME. PT DENIES NEEDS. CALL LIGHT IN REACH.
[2024-05-22 05:11] LABS: BASOPHILS 1.1 % (0-2); EOSINOPHILS 6.2 % (0-6); HEMATOCRIT 23.8 % (35.0-50.0); LYMPHOCYTES 43.9 % (24-44); MCH 28.7 (27-36); MCHC 33.7 g/dl (30-36); NEUTROPHILS 41.8 % (39-80); PLATELET COUNT 350 K/uL (140-440); RBC 2.81 M/ul (4.3-5.7); RDW 16.6 (10.5-15.0)
[2024-05-22 05:19] LABS: ANION GAP 13.2 (7-21); BUN/CREATININE RATIO 58.66 (6.0-28.6); CALCIUM 8.7 mg/dL (8.5-10.1); CREATININE, SERUM 0.75 mg/dL (0.70-1.30); MAGNESIUM 1.7 mg/dL (1.8-2.4); POTASSIUM 5.2 mmol/L (3.5-5.1)
--- NOTE | 2024-05-22 05:41 | NUR ---
VS AND I&O OBTAINED. SMALL AMOUNT LEAKING NOTED AROUND RECTAL TUBE. NEW ATTENDS PLACED AFTER MARGARITA CARE. PT REPOSITIONED WITH PILLOW UNDER RIGHT HIP. PT REPORTS PAIN 8/10. PRN FOR PAIN ADMIN PER EMAR. NO FURTHER NEEDS.
--- NOTE | 2024-05-22 07:39 | NUR ---
VERBAL REPORT RECEIVED FROM DANIEL TOLBERT. PT RESTS IN BED AWAKE AND ALERT, WATCHES TV. CRANBERRY JUICE RECEIVED PER PT REQUEST. NO FURTHER REQUESTS AT THIS TIME.
[2024-05-22] MEDS ORDERED: MAGNESIUM OXIDE 400 MG TABLET PO SCH (09:00)
--- NOTE | 2024-05-22 09:33 | NUR ---
OXYCODONE RECEIVED FOR MARGARITA RECTAL PAIN, SEE EMAR. PT RESTS IN BED, WATCHES TV, CALL LIGHT IN REACH. NO REQUESTS AT THIS TIME.
--- NOTE | 2024-05-22 11:27 | NUR ---
STOOL NOTED TO BE LEAKING AROUND THE RECTAL TUBE. RECTAL TUBE COMPLETELY DISPLACED, NOTED TO BE CLOGGED WITH STOOL. STOOL IS PASTY AT THIS TIME. RE-PLACEMENT OF RECTAL TUBE HELD. MARGARITA CARE PROVIDED. BARRIER CREAM APPLIED TO MARGARITA RECTAL AREA. BED LINEN CHANGE PERFORMED. WAFFLE STATIC OVERLAY APPLIED TO BED SURFACE. NEW EXTERNAL MALE PUREWICK PLACED, NEW INCONTINENCE BREIF AND GOWN DONNED. WOUND CARE PROVIDED. DRESSINGS TO SACRUM, RIGHT AKA SITE AND RIGHT ILIAC CREST CHANGED. SACRUM: OLD DRESSING AND 1 PEICE OF IODOFORM PACKING REMOVED FROM UNDERMINING. CLEANSED WITH WOUND CLEANSER AND PATTED DRY. UNDERMINING NOTED TO EXTEND FROM 3:00 TO 9:00. UNDERMINING AT 4:00 PROBES GREATER THAN 12 CM EXTENDING TO THE RIGHT HIP. UNDERMINING IRRIGATED AND FILLED WITH 1 PEICE OF 1" IODOFORM PACKING STRIP. WOUND COVERED WITH NON-ADHERENT FOAM AND SECURED WITH SACRAL BORDERED DRESSING. PT TOLERATED WELL. RIGHT ILIAC CREST: OLD DRESSING REMOVED, WOUND CLEANSED WITH WOUND CLEANSER AND PATTED DRY. NEW FOAM DRESSING APPLIED. RIGHT AKA RESIDUAL LIMB: OLD DRESSING REMOVED, CLEANSED WITH WOUND CLEANSER AND PATTED DRY. IODOSORB AND BORDERED FOAM APPLIED TO WOUND BASE. DRESSING SECURED WITH ELASTIC BANDAGE WRAPPED IN A SPICA DRESSING FASHION. PT TOLERATED WELL.
--- NOTE | 2024-05-22 12:40 | NUR ---
Spoke with Dr. Arreaga. He plans on pt discharging tomorrow with Home Health for wound care. Will complete F2F and orders. I will fax to [facility] when pt is ready for dc.
--- NOTE | 2024-05-22 12:46 | NUR ---
THIS MORNING PATIENT WASHED HIS FACE.
--- NOTE | 2024-05-22 13:13 | NUR ---
PT RESTS IN BED AWAKE, RECEIVES DIET NARDA PER REQUEST. CALL LIGHT IN REACH. NO FURTHER REQUESTS AT THIS TIME.
--- NOTE | 2024-05-22 14:01 | NUR ---
RECEIVED EARLIER PHONE CALL FROM DEACON ANGULO INIDCATING PT HAD REQUESTED VISIT FROM . VISITED PT TO CONFIRM. PT INDICATED HAD NOT ASKED FOR A NUDE MODEL TO VISIT BUT WOULD WELCOME SUCH A VISIT ON ANOTHER DAY WHEN HE "WASN'T SO SLEEPY." WILL INFORM PRIESTS OF DESIRE VIA NOT IN SACRISTRY. PT ALSO CONSENTED TO FUTURE VISITS FROM VICE PRESIDENT SALES. WILL RETURN CIRCUMSTANCES ALLOW. PROVIDED SUPPORTIVE PRESENCE, PRAYER.
--- NOTE | 2024-05-22 14:07 | NUR ---
Called [facility], pts provider is Dr. Chambers. He nurse is out to lunch at this time. I will contact to check how they plan on treating pts wounds. Dr. Arreaga would like HH.
--- NOTE | 2024-05-22 15:00 | NUR ---
In and spoke with Sal and his mom, Chichi. I have a long history or working with this pt. Updated I spoke with Dr. Arreaga and [facility]. plans on dc tomorrow. [facility] has set an appt to see Sal on 05/29/24 at 1045 and plan to see him weekly. 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 Mother is in agreement, pt is unsure if he wants to work with therapy. He would like [facility] to change his dressing. We discussed this is not a service they provide. Mom would like pt to have a hospital bed and a wc. I requested she speak with [facility] pcp about this. I will ask Dr. Arreaga to enter a note of need for this pt on his dc summary. I discussed with mom I doubt medicaid with provide another wc for Sal as they have done so in the last 2 years. They are unsure where his standard wc is. Recently someone got him a transfer chair. Mom and pt agree to HH through [facility]. Mom has had a stroke and states it is difficult to assist pt. She would caregivers. I started to give her the infor for [facility]; Aging and Disability. They have already started this process and have visited him two weeks ago. She states she was told it would be 45 days. I let her know this is correct. She feels she will be able to provide care until this time. She also needs transport for Sal to get home tomorrow. I gave her the number for [facility] and let her know I will schedule transport for [address] Arreaga of the above and he is in agreement.
--- NOTE | 2024-05-22 16:40 | NUR ---
Called [facility] and scheduled wc van transport to mom's house at 1 pm tomorrow. Called and left a message for Chichi requesting she bring pts wc to the hospital by 1 pm tomorrow for transport home.
--- NOTE | 2024-05-22 17:06 | NUR ---
Called and updated Yarely at [facility], pts patient case manager, pt will dc to home tomorrow. She also requested a wc. Let her know I do not think medicaid will provide another wc as pt has had one in the last 2 years. This will need to be authed through the [place]. Pt isll need to use his transport chair for now. I also let mom know she could go to [place] and borrow a wc for 3 months. She did not want to do this.
--- NOTE | 2024-05-22 19:15 | NUR ---
REPORT RECEIVED FROM ROOPA SANCHEZ. pt RESTING IN THE BED. BOARD UPDATED. pt DENIES ANY OTHER NEEDS AT THIS TIME. CALL LIGHT WITHIN REACH.
[2024-05-22 20:13] LABS: BUN/CREATININE RATIO 56.09 (6.0-28.6); CALCIUM 8.6 mg/dL (8.5-10.1); CREATININE, SERUM 0.82 mg/dL (0.70-1.30)
--- NOTE | 2024-05-22 21:45 | NUR ---
ASSESSMENT AND VITAL SIGNS DONE. pt BRIEF CHANGED AND DRESSING CHANGED. pt HAD A LRG BM. NEW PURE WICK PLACED. BED LINENS CHANGED. GOWN CHANGED. pt DENIES ANY OTHER NEEDS AT THIS TIME. CALL LIGHT WITHIN REACH. SCHEDULED MEDS ADMINISTERED. BG CHECKED WITH A RESULTS OF 161. SS INSULIN ADMINISTERED.
--- NOTE | 2024-05-22 23:15 | NUR ---
pt RESTING IN THE BED WITH EYES CLOSED. RR EVEN AND UNLABORED. CALL LIGHT WITHIN REACH.
--- NOTE | 2024-05-23 01:32 | NUR ---
pt RESTING IN THE BED WITH EYES CLOSED. RR EVEN AND UNLABORED. CALL LIGHT WITHIN REACH.
--- NOTE | 2024-05-23 03:02 | NUR ---
pt RESTING IN THE BED WITH EYES CLOSED. RR EVEN AND UNLABORED. CALL LIGHT WITHIN REACH.
[2024-05-23 05:12] LABS: BASOPHILS 1.2 % (0-2); EOSINOPHILS 7.3 % (0-6); HEMATOCRIT 24.2 % (35.0-50.0); HEMOGLOBIN 8.2 g/dL (12.0-18.0); LYMPHOCYTES 43.4 % (24-44); MCH 28.6 (27-36); MCV 84.3 fl (81-99); MONOCYTES 7.5 % (0-12); NEUTROPHILS 40.6 % (39-80); PLATELET COUNT 360 K/uL (140-440); RBC 2.87 M/ul (4.3-5.7); RDW 16.5 (10.5-15.0)
[2024-05-23 05:26] LABS: ANION GAP 12.8 (7-21); BUN/CREATININE RATIO 53.84 (6.0-28.6); CALCIUM 8.7 mg/dL (8.5-10.1); CREATININE, SERUM 0.78 mg/dL (0.70-1.30); MAGNESIUM 1.6 mg/dL (1.8-2.4); POTASSIUM 4.8 mmol/L (3.5-5.1)
[2024-05-23 05:47] VITALS: BP 94/60
--- NOTE | 2024-05-23 05:50 | NUR ---
VITAL SIGNS DONE. pt DENIES ANY OTHER NEEDS AT THIS TIME. CALL LIGHT WITHIN REACH.
--- NOTE | 2024-05-23 07:25 | NUR ---
REPORT RECEIVED FROM DANIEL ALAS. PT RESTING IN BED, RR EVEN AND UNLABORED. CALL LIGHT AND PERSONAL BELONGINGS IN REACH.
[2024-05-23] MEDS ORDERED: MAGNESIUM SULFATE 2 GM/50 ML BAG IV ONE (07:45)
--- NOTE | 2024-05-23 08:00 | NUR ---
Received a call from Sherry at [facility]. She is stating mom called and is not wanting this pt to come home. She is now concerned she cannot provide care. I spoke with Sal and he states he does not want placement. I asked what he plans if mom won't let him come home. He states he will live on [address]. He does agree to placement in [place] at [facility]. He declines placement any place else. Chart was sent to [facility].
--- NOTE | 2024-05-23 08:50 | NUR ---
MEDICATION ADMINISTERED, SEE MAR. ASSESSMENT COMPLETE. PATIENT IS RESTING IN BED AFTER BREAKFAST, SMALL BITS OF FOOD ON HIS GOWN AND IN HIS MALDONADO. PATIENT IS REPORTING PAIN IN HIS COCCYX/SACRUM AREA RATED 8/10. PRN PAIN MEDICATION ADMINISTERED. IV INFUSING TO L UPPER ARM WNL. PATIENTs PUREWICK IS LEAKING AND BED NEEDS CHANGED. CJ TRIPP AND CJ SCANLON ARRIVE TO CARE FOR PATIENT. PATIENT HAS NO OTHER REQUESTS. BOTH CNAs REMAIN IN ROOM WITH PATIENT AT THIS TIME.
[2024-05-23 09:11] VITALS: BP 120/82
--- NOTE | 2024-05-23 09:30 | NUR ---
Patient was in bed at this time, CJ Keene and I changed the bedding, breif, cesar, and male purewick. Got fresh water, and patient adjusted in bed, and sat up for breakfast. Call light with in reach and nothing else needed at this time.
--- NOTE | 2024-05-23 10:30 | NUR ---
Called and spoke with Lai in admissions. They are declining this pt.
--- NOTE | 2024-05-23 10:35 | NUR ---
SNACK PROVIDED PER PATIENT REQUEST. PATIENT RESTING IN BED, NO OTHER REQUESTS. CALL LIGHT AND PERSONAL BELONGINGS IN REACH.
[2024-05-23 10:36] VITALS: BP 120/82
--- NOTE | 2024-05-23 10:37 | NUR ---
CHART FAXED TO [facility] ADMISSIONS FOR REVIEW
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
--- NOTE | 2024-05-23 12:11 | NUR ---
PT NOT AVAILABLE FOR VISIT. PROVIDED PRAYER.
--- NOTE | 2024-05-23 12:14 | NUR ---
MD BURNSER IN WITH PATIENT TO DISCUSS DISCHARGE. PATIENT AGREEABLE TO GOING HOME. NO QUESTIONS OR CONCERNS. PATIENT EATING LUNCH IN BED WITH NO ASSISTANCE, NO COMPLAINTS AT THIS TIME. CALL LIGHT AND PERSONAL BELONGINGS IN REACH.
[2024-05-23 12:42] VITALS: BP 119/81
--- NOTE | 2024-05-24 07:05 | DS ---
[facility] [address], [place] [address] Signed ADMISSION DATE: 05/18/2024 DISCHARGE DATE: 05/23/2024 FINAL DIAGNOSES: 1. Failure to thrive. 2. Chronic multiple pressure injuries. 3. Diabetes. PROCEDURE: CT scan of abdomen and pelvis. HISTORY OF PRESENT ILLNESS: Arian is a 48-year-old [place] gentleman who is diabetic, who has been homeless and using mainly methamphetamines but often other substances as well. Apparently, he has spent time in the hospital in [place], [place] as well as in [place], [place] as well as [place]. Apparently his father recently over in the [place] area. He has been evicted from apartments apparently because of his methamphetamine abuse. He has even been declined admission to hospitals because his issues are all chronic. His mother went over and brought him back to [place], [place]. He had been at the [facility] and was asked to come directly to our emergency room. In the emergency room, he seemed to have all chronic issues. Our hospitalist service felt better if I would admit him as a local general surgeon on-call and they follow for the medical issues. HOSPITAL COURSE: Arian was admitted as above. I had reviewed his current records and I obtained records from [place] as well as [place], [place]. I reviewed those line by line. He certainly has significant issues including his severe malnutrition, diabetes, chronic osteomyelitis in his distal femur and right hip along with his chronic pressure injuries. It is well documented that he has noncompliant behavior as well as belligerent behavior. He had to have the sacral pressure injury incised and drained for his sepsis. That is now markedly improved. On exam, he has all chronic pressure injuries. They were all well dressed and they were all clean without any local signs or symptoms of infection. We also had our Internal Medicine service see him as well. HOSPITAL COURSE: Arian was admitted as above. There was nothing I could do for him surgically with respect to the wounds. We went ahead and continued his wound dressing instructions from [facility]. The medical service was following as well. His blood pressure has been running low around systolics at 90 and 100. Consequently, we held the lisinopril. He used very little insulin despite the amount of food he was eating. He Electronically Signed By: FABIAN FUNG MD 05/24/24 0705 PATIENT NAME: ARIAN FERGUSON DISCHARGE SUMMARY DATE OF : 75 REPORT #: [id number] PHYSICIAN: FABIAN FUNG MD PCP: SEVEN JONES MD REPORT IS CONFIDENTIAL AND NOT TO BE RELEASED WITHOUT AUTHORIZATION [facility] [address] [place] [id number] Signed did receive some magnesium oxide for hypomagnesemia and also some vitamin B12 by mouth. He is a little anemic, so he did receive 1 unit of packed red blood cells. He also received a Feraheme 510 mg IV x1. Hospitalist service wanted to repeat that in about a week. Our hospitalist service and our discharge planners are well known to Arian. Our discharge planners have been working diligently in that regard. Because of his behavior and noncompliance, we have been unable to find a assisted unit or a retirement that would take him for his chronic issues. He tells us that he is comfortable going back home with his mom with home health care twice a week and also going to the [facility] once a week. DISCHARGE PLANS AND MEDICATIONS: Arian is going to go home with his mom as he was before. We have encouraged him and instructed him on a high-protein diet. We have encouraged him to be more compliant with his medical issues. [facility] will be out twice a week to help him with the wound care. He will be seeing his primary care provider at the [facility] in about a week. He has been encouraged to receive Feraheme 510 mg IV x1 at that time. We held the lisinopril currently because his systolic blood pressures have been in the 90s to about 120 total. He is always welcome to follow up my office as needed. Although, there is not much I can do for him at this time. He has expressed understanding, agrees above plan. Also discussed with the hospitalist service and our discharge planners. I did talk to his mom on the phone as well and reviewed his previous records. Fabian Fung MD ALB/MODL /[id number] cc: MD Fabian Casillas MD Copies: SEVEN JONES MD Electronically Signed By: FABIAN FUNG MD 05/24/24 0705 PATIENT NAME: ARIAN FERGUSON DISCHARGE SUMMARY DATE OF : 75 REPORT #: [id number] PHYSICIAN: FABIAN FUNG MD PCP: SEVEN JONES MD REPORT IS CONFIDENTIAL AND NOT TO BE RELEASED WITHOUT AUTHORIZATION [facility] [address] [place], [place] [address] Signed FABIAN FUNG MD ~ Electronically Signed By: FABIAN FUNG MD 05/24/24 0705 PATIENT NAME: ARIAN FERGUSON DISCHARGE SUMMARY DATE OF : 75 REPORT #: [id number] PHYSICIAN: FABIAN FUNG MD PCP: SEVEN JONES MD REPORT IS CONFIDENTIAL AND NOT TO BE RELEASED WITHOUT AUTHORIZATION
== END 2024-05-23 13:10 | disposition home health service (06) | DRG 592 ==
LOC: ED 15:30 → MS 23:24
PROVIDERS: Emergency Medicine; Family Medicine; Student in an Organized Health Care Education/Training Program; ADMIT Colon & Rectal Surgery; ATTEND Colon & Rectal Surgery
PROC: 30233N1 Transfusion of Nonautologous Red Blood Cells into Peripheral Vein, Percutaneous Approach (ICD-10-PCS; principal; 2024-05-19)
DX: L89.159 Pressure ulcer of sacral region, unspecified stage (principal); E43 Unspecified severe protein-calorie malnutrition; M86.69 Other chronic osteomyelitis, multiple sites; R64 Cachexia; Z68.1 Body mass index [BMI] 19.9 or less, adult; E10.69 Type 1 diabetes mellitus with other specified complication; F15.10 Other stimulant abuse, uncomplicated; D64.9 Anemia, unspecified; F17.210 Nicotine dependence, cigarettes, uncomplicated; I10 Essential (primary) hypertension; E87.5 Hyperkalemia; D72.10 Eosinophilia, unspecified; E83.42 Hypomagnesemia; R19.7 Diarrhea, unspecified; Z79.4 Long term (current) use of insulin; Z91.199 Patient's noncompliance with other medical treatment and regimen due to unspecified reason; Z89.512 Acquired absence of left leg below knee; Z89.611 Acquired absence of right leg above knee
CPT/HCPCS: 36415; 71045; 74177; 80048; 80053; 82607; 82728; 82746; 83550; 83605; 83735; 84100; 84134; 84439; 84443; 85025; 85045; 85651; 86140; 86850; 86900; 86901; 86922; 87045; 87046; 94760; 94799; 97110; 97162; 97165; 99284-25; 99406; A9270; J1171; J1815; J2704; J3475; J7030; J7121; Q0138; Q9967